=== PATIENT | female | born 1990 | race Caucasian/White ===

== ENCOUNTER 2018-02-19 14:31 | Outpatient (CLI) | payer MEDICAID, SELFPAY ==
[2018-02-19 15:06] LABS: Abs Immature Grans 0.03 k/cumm (0.0-0.09); Absolute Basophil Count 0.03 k/cumm (0.0-0.2); Absolute Eosinophil Count 0.16 k/cumm (0.0-0.7); Absolute Lymphocyte Count 2.19 k/cumm (1.2-3.4); Absolute Monocyte Count 0.82 k/cumm (0.11-0.7); Absolute Neutrophil Count 6.24 k/cumm (1.2-6.7); Basophils % 0.3; Eosinophils % 1.7; HCT 35.6 % (36.0-46.0); HGB 12.2 g/dL (12.0-15.5); Immature Grans % 0.3; Lymphocytes % 23.1; Mean Corp. HGB Concentration 34.3 g/dL (32.0-36.0); Mean Corpuscular Volume 87.7 fL (80-95); Mean Platelet Volume 10.4 fL (8.0-11.0); Monocytes % 8.7; Neutrophils % 65.9; Platelet Count 345 x1000/uL (130-400); RBC 4.06 m/cumm (4.00-5.20); RBC Distribution Width 13.2 % (11.7-14.6); White Blood Cell Count 9.47 k/cumm (4.4-10.8)
[2018-02-19 16:28] LABS: FREE T4 1.11 ng/dL (0.76-1.46)
[2018-02-20 10:50] LABS: HIV-1/2 Ag & Ab Screen Negative (NEGAT)
[2018-02-20 10:54] LABS: Varicella IgG Antibody Negative
[2018-02-20 11:05] LABS: Hepatitis B Surface Ag Negative (NEGAT)
[2018-02-20 11:14] LABS: Hepatitis C Ab w Rflx HCV PCR Negative (NEGAT); Rubella IgG Ab (UVM) Positive
== END 2018-02-19 14:51 ==
PROVIDERS: PCP Pediatrics; Visit Provider Advanced Practice Midwife
DX: Z34.91 Encounter for supervision of normal pregnancy, unspecified, first trimester (principal); Z11.59 Encounter for screening for other viral diseases; Z11.4 Encounter for screening for human immunodeficiency virus [HIV]; Z01.84 Encounter for antibody response examination
CPT/HCPCS: 36415; 86787; 86803; 86850; 86900; 86901; 87340; 87389; 84439; 84443; 85025; 86762

== ENCOUNTER 2018-02-19 16:38 | Outpatient (REF) | payer MEDICAID, SELFPAY ==
[2018-02-19 17:27] LABS: *AMPHETAMINES SCREEN URINE Negative (Negative); *BARBITURATES SCREEN URINE Negative (Negative); *BENZODIAZEPINES SCREEN URINE Negative (Negative); Cannabinoids THC Negative (Negative); Cocaine Screen,Urine Negative (Negative); METHADONE URINE SCREEN Negative (Negative); OPIATES URINE SCREEN Negative (Negative)
[2018-02-19 17:41] LABS: Tricyclic Antidepressants Negative (Negative)
[2018-02-19 18:13] LABS: Bilirubin Negative (Negative); Blood Negative (Negative); Clarity Cloudy; Glucose Negative (Negative); Ketones Negative (Negative); Leukocyte Esterase Negative (Negative); Nitrite Negative (Negative); Specific Gravity 1.025 (1.005-1.025); Urobilinogen 0.2 EU/dL (Up TO 0.2); pH 7.5 (5-8)
[2018-02-23 18:33] LABS: Buprenorphine Negative; Norbuprenorphine Negative
== END 2018-02-19 16:58 ==
LOC: LBN 16:38
PROVIDERS: PCP Pediatrics; Visit Provider Advanced Practice Midwife
DX: Z34.91 Encounter for supervision of normal pregnancy, unspecified, first trimester (principal)
CPT/HCPCS: 80307; 81003; 87086

== ENCOUNTER 2018-02-23 00:15 | Outpatient (CLI) | payer MEDICAID, SELFPAY ==
--- NOTE | 2018-02-23 09:44 | DI.US_ITS ---
Many abnormalities cannot be diagnosed. A normal exam does not exclude a congenital anomaly. Radiology No. LMP: 11/28/17 Exam Date: 02/23/18 [facility] wks days on EDC ([facility]) 09/04/2018 Confirmed: HISTORY: ? DATES, Z32.01 ---- PREDICTED GESTATIONAL AGE NUMBER 12.3 weeks with a range of 11.3 week to 13.3 weeks. 1 Determined by___1STUS___LMP___HISTORY Info. pertaining to fetus # PLACENTA PRESENTATION Grade 0 Cephalic___ Anterior___Posterior__X_ Breech____ Right Left Transverse(head right___ Fundal___Low-lying___Previa___ Transverse(head left___ Varying__X____ BIOMETRY AMNIOTIC FLUID BPD: mm weeks Normal HC: mm weeks Oligo Polyhydramnios AC: mm weeks FL: mm weeks AMNIOTIC FLUID INDEX >26 WK CRL: 46 mm 11.3 weeks Cisterna Magna: mm CI: RUQ: LUQ Cerebellum: cm EFW: grams Percentile RLQ: LLQ Total: cms Composite AGE= 11.3 wks EDC by US____09/11/18 BIOPHYSICAL PROFILE ANATOMY IDENTIFIED SCORE 0/2 Heart: 4-Chamber___Rate:BPM__157___ LVOT: RVOT: Amniotic Fluid(>2cms)____ Stomach: Kidneys: Respirations (>30 secs) Bladder: Post. Fossa: Body Flex/Extension 3 vessel cord: Ventricles: cord insertion: Lips:____ Extremity Flex/Extension spinal morphology: Nose: Total Score= Palate: NS=not seen OB ultrasound was performed utilizing first trimester protocol. Transabdominal scanning only was performed at the patient's request. There is a single, viable intrauterine gestation with crown rump length measurements consistent with gestational age of 11 weeks 3 days and an EDC of 09/11/18. There is cardiac rate observed of 157 BPM. No gross abnormality of the trophoblastic tissue seen.
== END 2018-02-23 00:35 ==
PROVIDERS: PCP Pediatrics; Visit Provider Advanced Practice Midwife
DX: Z34.91 Encounter for supervision of normal pregnancy, unspecified, first trimester (principal)
CPT/HCPCS: 76801

== ENCOUNTER 2018-03-23 09:53 | Outpatient (CLI) | payer MEDICAID, SELFPAY ==
[2018-03-26 12:37] LABS: Syphilis Serology (RPR) Negative (Negative)
[2018-03-26 12:46] LABS: AFP 23.3 ng/mL; Calculated age at EDD 26 years; Cigarette smoking status non-smoker; INHIBIN 450 pg/mL; IVF Pregnancy No; Initial or repeat testing Initial testing; Insulin dependent diabetes No; Maternal Weight 150 lbs; Number of Fetuses 1; Physician Phone Number 802-748-7300; Prev Down(T21)/Trisomy Pregnan No; Prev Pregnancy w/NTD No; hCG, TOTAL 110.4 IU/mL; uE3 0.82 ng/mL
[2018-03-26 13:56] LABS: Chlamydia Result Negative; GC Result Negative; Specimen Description URINE
[2018-03-28 12:37] LABS: Result Summary NEGATIVE; Specimen WB Whole Blood
[2018-04-02 11:04] LABS: uE3 MoM 1.23 MoM
[2018-04-02 11:05] LABS: hCG, TOTAL MoM 2.91 MoM
[2018-04-02 11:10] LABS: GA used in risk estimate Scan estimate
== END 2018-03-23 10:13 ==
PROVIDERS: PCP Pediatrics; Visit Provider Advanced Practice Midwife
DX: Z34.92 Encounter for supervision of normal pregnancy, unspecified, second trimester (principal); Z13.228 Encounter for screening for other metabolic disorders; Z36.89 Encounter for other specified antenatal screening; Z11.3 Encounter for screening for infections with a predominantly sexual mode of transmission
CPT/HCPCS: 36415; 81511; 87491; 87591; 81220; 86592

== ENCOUNTER 2018-04-05 10:45 | Outpatient (CLI) | payer MEDICAID, SELFPAY ==
[2018-04-05 11:18] LABS: Kit/Specimen SENT
== END 2018-04-05 11:05 ==
PROVIDERS: PCP Pediatrics; Visit Provider Advanced Practice Midwife
DX: O28.5 Abnormal chromosomal and genetic finding on antenatal screening of mother (principal); Z36.89 Encounter for other specified antenatal screening
CPT/HCPCS: 36415

== ENCOUNTER 2018-04-13 00:14 | Outpatient (CLI) | payer MEDICAID, SELFPAY ==
--- NOTE | 2018-04-13 14:15 | DI.US_ITS ---
Many abnormalities cannot be diagnosed. A normal exam does not exclude a congenital anomaly. Radiology No. LMP: Exam Date: 04/13/18 [facility] wks days on EDC ([facility]) 09/04/18 Confirmed: HISTORY: SURVEY, Z32.01 PREDICTED GESTATIONAL AGE NUMBER 19.3 weeks with a range of 18.3 week to 20.3 weeks. 1 Determined by___1STUS__X_LMP___HISTORY Info. pertaining to fetus # PLACENTA PRESENTATION Grade 0-1 Cephalic___ Anterior___Posterior__X_ Breech____ Right Left Transverse(head right___ Fundal___Low-lying___Previa___ Transverse(head left___ Varying____X__ BIOMETRY AMNIOTIC FLUID BPD: 41 mm 18.2 weeks Normal HC: 161 mm 18.6 weeks AC: 138 mm 19.1 weeks FL: 28 mm 18.4 weeks AMNIOTIC FLUID INDEX >26 WK CRL: mm weeks Cisterna Magna: 3.9 mm CI: 76 RUQ: LUQ Cerebellum: 1.82 cm EFW: 262 grams Percentile RLQ: LLQ Total: cms Composite AGE= 18.5 wks EDC by US___09/09/18 BIOPHYSICAL PROFILE ANATOMY IDENTIFIED SCORE 0/2 Heart: 4-Chamber_X__Rate:BPM___144__ LVOT: X___ RVOT:___X Amniotic Fluid(>2cms)____ Stomach: X__ Kidneys:___X____ Respirations (>30 secs) Bladder: X__ Post. Fossa:__X Body Flex/Extension 3 vessel cord:___X____Ventricles:___X cord insertion: X Lips:__X__ Extremity Flex/Extension spinal morphology: X_Nose:X Total Score= Palate: X__ NS=not seen Routine examination was performed. There is a single living intrauterine gestation. Estimated sonographic age is 18 weeks 5 days. No or placental abnormalities are identified.
== END 2018-04-13 00:34 ==
PROVIDERS: PCP Pediatrics; Visit Provider Advanced Practice Midwife
DX: Z34.92 Encounter for supervision of normal pregnancy, unspecified, second trimester (principal)
CPT/HCPCS: 76805

== ENCOUNTER 2018-06-15 01:37 | Outpatient (CLI) | payer MEDICAID, SELFPAY ==
[2018-06-15 10:02] LABS: HCT 33.8 % (36.0-46.0); Mean Corp. HGB Concentration 32.5 g/dL (32.0-36.0); Mean Corpuscular Hemoglobin 29.7 pg (27.0-33.0); Mean Corpuscular Volume 91.4 fL (80-95); Platelet Count 302 x1000/uL (130-400); RBC Distribution Width 14.1 % (11.7-14.6); White Blood Cell Count 11.75 k/cumm (4.4-10.8)
[2018-06-15 10:21] LABS: Glucose,1 Hr (Glucola) 138 mg/dL (80-140)
== END 2018-06-15 01:57 ==
PROVIDERS: Visit Provider Advanced Practice Midwife
DX: Z34.93 Encounter for supervision of normal pregnancy, unspecified, third trimester (principal); Z01.84 Encounter for antibody response examination
CPT/HCPCS: 36415; 82950; 85027; 86850; 90384

== ENCOUNTER 2018-06-22 07:42 | Outpatient (CLI) | payer MEDICAID, SELFPAY ==
[2018-06-22 10:59] LABS: Glucose 1 Hour 142 mg/dL
[2018-06-22 13:22] LABS: Glucose 3 Hour 113 mg/dL
== END 2018-06-22 08:02 ==
PROVIDERS: Visit Provider Advanced Practice Midwife
DX: O99.810 Abnormal glucose complicating pregnancy (principal); Z34.90 Encounter for supervision of normal pregnancy, unspecified, unspecified trimester
CPT/HCPCS: 36410; 82951

== ENCOUNTER 2018-08-10 13:51 | Outpatient (REF) | payer MEDICAID, SELFPAY ==
[2018-08-10 13:23] LABS: *AMPHETAMINES SCREEN URINE Negative (Negative); *BARBITURATES SCREEN URINE Negative (Negative); *BENZODIAZEPINES SCREEN URINE Negative (Negative); Cannabinoids THC Negative (Negative); Cocaine Screen,Urine Negative (Negative); METHADONE URINE SCREEN Negative (Negative); OPIATES URINE SCREEN Negative (Negative)
[2018-08-10 13:31] LABS: Tricyclic Antidepressants Negative (Negative)
== END 2018-08-10 14:11 ==
LOC: LBN 13:51
PROVIDERS: Visit Provider Advanced Practice Midwife
DX: Z34.93 Encounter for supervision of normal pregnancy, unspecified, third trimester (principal)
CPT/HCPCS: 80307

== ENCOUNTER 2018-08-17 13:39 | Outpatient (REF) | payer MEDICAID, SELFPAY | END 2018-08-17 13:59 | LOC: LBN 13:39 | PROVIDERS: Visit Provider Advanced Practice Midwife | DX: Z34.93 Encounter for supervision of normal pregnancy, unspecified, third trimester (principal); Z36.85 Encounter for antenatal screening for Streptococcus B | CPT/HCPCS: 87081 ==

== ENCOUNTER 2018-08-24 12:37 | Outpatient (REF) | payer MEDICAID, SELFPAY ==
[2018-08-24 14:23] LABS: *AMPHETAMINES SCREEN URINE Negative (Negative); *BARBITURATES SCREEN URINE Negative (Negative); *BENZODIAZEPINES SCREEN URINE Negative (Negative); Cannabinoids THC Negative (Negative); Cocaine Screen,Urine Negative (Negative); METHADONE URINE SCREEN Negative (Negative); OPIATES URINE SCREEN Negative (Negative)
[2018-08-24 14:29] LABS: Tricyclic Antidepressants Negative (Negative)
[2018-08-27 03:41] LABS: Buprenorphine Negative; Norbuprenorphine Negative
== END 2018-08-24 12:57 ==
LOC: LBN 12:37
PROVIDERS: Visit Provider Advanced Practice Midwife
DX: Z34.93 Encounter for supervision of normal pregnancy, unspecified, third trimester (principal)
CPT/HCPCS: 80307

== ENCOUNTER 2018-09-11 10:25 | Outpatient (CLI) | payer MEDICAID, SELFPAY | END 2018-09-11 10:45 | PROVIDERS: Visit Provider Advanced Practice Midwife | DX: O48.0 Post-term pregnancy (principal); Z3A.41 41 weeks gestation of pregnancy | CPT/HCPCS: 59025 ==

== ENCOUNTER 2018-09-12 21:04 | Inpatient (IN) | payer MEDICAID, SELFPAY ==
[2018-09-12 23:02] LABS: HCT 39.6 % (36.0-46.0); Mean Corp. HGB Concentration 32.8 g/dL (32.0-36.0); Mean Corpuscular Hemoglobin 28.9 pg (27.0-33.0); Platelet Count 322 x1000/uL (130-400); RBC Distribution Width 16.1 % (11.7-14.6); White Blood Cell Count 13.71 k/cumm (4.4-10.8)
[2018-09-12 23:14] LABS: Uric Acid 3.8 mg/dL (2.6-6.0)
[2018-09-12 23:16] LABS: ALT 17 U/L (12-78); AST 14 U/L (15-37); Albumin 2.7 g/dL (3.4-5.0); Alkaline Phosphatase 216 U/L (46-116); BUN 5 mg/dL (7-18); Bilirubin, Total 0.3 mg/dL (0.2-1.0); CREATININE 0.66 mg/dL (0.55-1.02); Calcium 9.8 mg/dL (8.5-10.1); Chloride 103 mmol/L (98-107); Glucose 125 mg/dL (70-100); Potassium 3.7 mmol/L (3.5-5.1); Sodium 136 mmol/L (136-145); Total Protein 7.1 g/dL (6.4-8.2)
[2018-09-13] MEDS: Zolpidem 5 MG TAB PO (01:06)
[2018-09-13] MEDS: Lactated Ringers 500 ML IV (14:22)
[2018-09-13] MEDS: FentaNYL/ROPIvacaine 2 mcg/ml and 0.1% 200 ML CADD Cassette EP (15:00)
[2018-09-13] MEDS: Bupivacaine 0.25% Pres-Free 30 ML VIAL (15:00)
[2018-09-13] MEDS: fentaNYL 100 MCG/2 ML VIAL (15:00)
[2018-09-13] MEDS: Lactated Ringers 250 ML 500 ML IV (15:37)
--- NOTE | 2018-09-13 20:49 | PDOC.ANES ---
Date of service: 09/13/18 Time of Service: 20:50 Anesthesia Note Report Anesthesia Note: Requested to see Gila as she had an epidural placed earlier this afternoon and has been experiencing some discomfort on her right side now despite trying to lie with her right side down as well as left side more dense sensory block. No observed motor weakness on exam. Decision made to withdraw epidural catheter. Site undressed and catheter at skin was 12cm, catheter withdrew in sterile fashion to 10cm, mastisol applied as well as new dressing which was secured with tape. A total of 10ml 0.1% ropivacaine administered with some relief. PCEA dose also increased to 5ml. Plan is to maintain epidural at current rate with no option to withdraw catheter given short distance into space. If needed she will supplement with nitrous. The epidural seems to be providing moderate pain relief despite favoring one side.
[2018-09-14] MEDS: Lactated Ringers 1,000 ML 125 ML IV (02:38)
[2018-09-14] MEDS: Ibuprofen 600 MG TAB PO ×3 (05:08→15:55)
[2018-09-14] MEDS: Acetaminophen 325 MG TAB 650 MG PO ×5 (05:09→19:45)
[2018-09-14] MEDS: Hamamelis Leaf/Glycerin 100 EACH BOX PR (06:09)
[2018-09-15 07:07] LABS: HCT 31.7 % (36.0-46.0); HGB 9.9 g/dL (12.0-15.5); Mean Corp. HGB Concentration 31.2 g/dL (32.0-36.0); Mean Corpuscular Hemoglobin 28.4 pg (27.0-33.0); Mean Corpuscular Volume 91.1 fL (80-95); Mean Platelet Volume 10.8 fL (8.0-11.0); Platelet Count 294 x1000/uL (130-400); RBC 3.48 m/cumm (4.00-5.20); RBC Distribution Width 16.3 % (11.7-14.6); White Blood Cell Count 14.05 k/cumm (4.4-10.8)
[2018-09-15] MEDS: Acetaminophen 325 MG TAB 650 MG PO ×2 (10:50→17:33)
[2018-09-15] MEDS: Ibuprofen 600 MG TAB PO ×2 (14:09→20:11)
[2018-09-16] MEDS: Acetaminophen 325 MG TAB 650 MG PO ×2 (08:17→14:03)
[2018-09-16] MEDS: Ibuprofen 600 MG TAB PO ×2 (08:21→14:03)
[2018-09-16] MEDS: Docusate Sodium 100 MG CAP PO (08:22)
== END 2018-09-16 16:30 | disposition home or self-care (01) | DRG 807 ==
PROVIDERS: Advanced Practice Midwife; Admitting Provider Advanced Practice Midwife; PCP Family Medicine; Visit Provider Advanced Practice Midwife
DX: O42.02 Full-term premature rupture of membranes, onset of labor within 24 hours of rupture (principal); Z37.0 Single live birth; O48.0 Post-term pregnancy; O70.1 Second degree perineal laceration during delivery; O63.0 Prolonged first stage (of labor); Z3A.41 41 weeks gestation of pregnancy; O75.89 Other specified complications of labor and delivery; N36.5 Urethral false passage
CPT/HCPCS: 36415; 80053; 85027; 85461; 86850; 86900; 86901; 90384; 84550; J2790; J3010; J3490

== ENCOUNTER 2019-03-29 11:45 | Outpatient (CLI) | payer MEDICAID, SELFPAY | END 2019-03-29 12:05 | PROVIDERS: PCP Family Medicine; Visit Provider Nurse Practitioner Family | DX: Z32.01 Encounter for pregnancy test, result positive (principal) | CPT/HCPCS: 36415; 84702 ==

== ENCOUNTER 2019-04-26 21:16 | Outpatient (REF) | payer MEDICAID, SELFPAY ==
[2019-04-26 15:35] LABS: *AMPHETAMINES SCREEN URINE Negative (Negative); *BARBITURATES SCREEN URINE Negative (Negative); *BENZODIAZEPINES SCREEN URINE Negative (Negative); Cannabinoids THC Negative (Negative); Cocaine Screen,Urine Negative (Negative); METHADONE URINE SCREEN Negative (Negative); OPIATES URINE SCREEN Negative (Negative)
[2019-04-26 15:46] LABS: Tricyclic Antidepressants Negative (Negative)
[2019-04-29 14:37] LABS: Chlamydia Result Negative (Negative); GC Result Negative (Negative)
[2019-05-01 12:50] LABS: Buprenorphine Negative; Norbuprenorphine Negative
== END 2019-04-26 21:36 ==
LOC: LBN 21:16
PROVIDERS: PCP Family Medicine; Visit Provider Advanced Practice Midwife
DX: Z34.91 Encounter for supervision of normal pregnancy, unspecified, first trimester (principal); Z11.3 Encounter for screening for infections with a predominantly sexual mode of transmission
CPT/HCPCS: 80307; 87491; 87591

== ENCOUNTER 2019-05-06 01:55 | Outpatient (CLI) | payer MEDICAID, SELFPAY ==
[2019-05-06 09:49] LABS: Glucose,1 Hr (Glucola) 127 mg/dL (80-140)
[2019-05-06 10:30] LABS: Abs Immature Grans 0.01 k/cumm (0.0-0.09); Absolute Basophil Count 0.02 k/cumm (0.0-0.2); Absolute Eosinophil Count 0.09 k/cumm (0.0-0.7); Absolute Lymphocyte Count 1.65 k/cumm (1.2-3.4); Absolute Monocyte Count 0.47 k/cumm (0.11-0.7); Absolute Neutrophil Count 6.16 k/cumm (1.2-6.7); Basophils % 0.2; Eosinophils % 1.1; HCT 38.9 % (36.0-46.0); HGB 13.3 g/dL (12.0-15.5); Immature Grans % 0.1 %; Lymphocytes % 19.6; Mean Corp. HGB Concentration 34.2 g/dL (32.0-36.0); Mean Corpuscular Volume 87.6 fL (80-95); Mean Platelet Volume 10.6 fL (8.0-11.0); Monocytes % 5.6; Neutrophils % 73.4; Platelet Count 362 x1000/uL (130-400); RBC 4.44 m/cumm (4.00-5.20); RBC Distribution Width 13.2 % (11.7-14.6)
[2019-05-06 11:28] LABS: TSH (W/Ref FT4) 0.02 uIU/mL (0.36-3.74)
[2019-05-06 14:31] LABS: FREE T4 1.09 ng/dL (0.76-1.46)
[2019-05-07 10:24] LABS: Hepatitis B Surface Ag Negative (Negative)
[2019-05-07 10:39] LABS: HIV-1/2 Ag & Ab Screen Negative (Negative)
[2019-05-07 10:49] LABS: Rubella IgG Ab (UVM) Positive (See Note); Varicella IgG Antibody Negative (See Note)
[2019-05-07 11:49] LABS: Hepatitis C Ab w Rflx HCV PCR Negative (Negative)
[2019-05-07 15:27] LABS: Syphilis Total Ab w/Reflex Nonreactive (Nonreactive)
== END 2019-05-06 02:15 ==
PROVIDERS: Advanced Practice Midwife; PCP Family Medicine; Visit Provider Advanced Practice Midwife
DX: Z34.91 Encounter for supervision of normal pregnancy, unspecified, first trimester (principal); Z11.4 Encounter for screening for human immunodeficiency virus [HIV]; Z11.59 Encounter for screening for other viral diseases; Z01.84 Encounter for antibody response examination
CPT/HCPCS: 36415; 82950; 86787; 86803; 86850; 86900; 86901; 87340; 87389; 84439; 84443; 85025; 86762; 86780

== ENCOUNTER 2019-05-15 15:50 | Outpatient (CLI) | payer MEDICAID, SELFPAY ==
[2019-05-15 16:59] LABS: FREE T4 1.12 ng/dL (0.76-1.46); TSH 0.02 uIU/mL (0.36-3.74)
[2019-05-17 10:07] LABS: Thyroperoxidase Antibody 32 U/mL (<=60)
== END 2019-05-15 16:10 ==
PROVIDERS: Advanced Practice Midwife; PCP Nurse Practitioner; Visit Provider Advanced Practice Midwife
DX: Z34.92 Encounter for supervision of normal pregnancy, unspecified, second trimester (principal)
CPT/HCPCS: 36415; 84439; 84443; 86376

== ENCOUNTER 2019-05-31 02:53 | Outpatient (CLI) | payer MEDICAID, SELFPAY ==
--- NOTE | 2019-05-31 10:15 | DI.US_ITS ---
EXAM: US OB 1ST TRIMESTER CLINICAL HISTORY: dating ultrasound. pt declines t/v usg, Z34.90 TECHNIQUE: Ultrasound performed using standard protocol. COMPARISON: No exams were available for comparison FINDINGS: The fetus was in variable position during the exam. The edge of the placenta approaches the interna l os. It does not appear to extend across the os. The biometric measurements correspond to 16 weeks 5 days and an EDC of 10 November 2019. The amount of amniotic fluid appears visually normal. No rizwana s abnormalities were identified. IMPRESSION: Living intrauterine gestation of 16 weeks 5 days. The patient is scheduled to return 14 June 2019 f or a complete survey. Question of marginal placenta previa. DATA REPOSITORY:
== END 2019-05-31 03:13 ==
PROVIDERS: PCP Nurse Practitioner; Visit Provider Advanced Practice Midwife
DX: Z34.92 Encounter for supervision of normal pregnancy, unspecified, second trimester (principal); Z3A.16 16 weeks gestation of pregnancy
CPT/HCPCS: 76801

== ENCOUNTER 2019-05-31 12:58 | Outpatient (CLI) | payer MEDICAID, SELFPAY | END 2019-05-31 13:18 | PROVIDERS: PCP Nurse Practitioner; Visit Provider Advanced Practice Midwife | DX: Z34.92 Encounter for supervision of normal pregnancy, unspecified, second trimester (principal) | CPT/HCPCS: 87086 ==

== ENCOUNTER 2019-06-28 00:20 | Outpatient (CLI) | payer MEDICAID, SELFPAY ==
--- NOTE | 2019-06-28 06:15 | DI.US_ITS ---
EXAM: US OB 2-3 TRIMESTER CLINICAL HISTORY: 18 wk anatomy survey,z34.90 TECHNIQUE: 2D digital imaging was performed. COMPARISON: US OB 1ST TRIMESTER from 05/31/2019 FINDINGS: The fetus was in variable position during the exam. The placenta is posterior. The tip of the place nta lies 2.5 cm from the internal os.. The biometric measurements correspond to 20 weeks 3 days and an EDC of 12 November 2019. No abno rmalities are seen. The amount of amniotic fluid appears visually normal. IMPRESSION: Borderline low-lying placenta. Unremarkable survey.
== END 2019-06-28 00:40 ==
PROVIDERS: PCP Nurse Practitioner; Visit Provider Advanced Practice Midwife
DX: Z34.92 Encounter for supervision of normal pregnancy, unspecified, second trimester (principal); Z3A.20 20 weeks gestation of pregnancy
CPT/HCPCS: 76805

== ENCOUNTER 2019-08-16 09:22 | Outpatient (REF) | payer MEDICAID, SELFPAY ==
[2019-08-16 09:39] LABS: HGB 12.7 g/dL (12.0-15.5); Mean Corp. HGB Concentration 33.4 g/dL (32.0-36.0); Mean Corpuscular Hemoglobin 30.6 pg (27.0-33.0); Mean Corpuscular Volume 91.6 fL (80-95); Mean Platelet Volume 10.6 fL (8.0-11.0); Platelet Count 323 x1000/uL (130-400); RBC 4.15 m/cumm (4.00-5.20); RBC Distribution Width 14.4 % (11.7-14.6)
[2019-08-16 09:42] LABS: Glucose,1 Hr (Glucola) 141 mg/dL (80-140)
[2019-08-16 10:17] LABS: TSH (W/Ref FT4) 0.37 uIU/mL (0.36-3.74)
== END 2019-08-16 09:42 ==
LOC: LBN 09:22
PROVIDERS: PCP Family Medicine; Visit Provider Advanced Practice Midwife
DX: O26.892 Other specified pregnancy related conditions, second trimester (principal); E03.9 Hypothyroidism, unspecified
CPT/HCPCS: 82950; 85027; 86850; 90384; 84443

== ENCOUNTER 2019-08-22 10:15 | Outpatient (CLI) | payer MEDICAID, SELFPAY ==
[2019-08-22 10:44] LABS: Glucose 1 Hour 151 mg/dL
== END 2019-08-22 10:35 ==
PROVIDERS: Visit Provider Advanced Practice Midwife
DX: Z34.93 Encounter for supervision of normal pregnancy, unspecified, third trimester (principal)
CPT/HCPCS: 82951

== ENCOUNTER 2019-10-14 12:48 | Outpatient (REF) | payer MEDICAID, SELFPAY ==
[2019-10-14 14:10] LABS: *AMPHETAMINES SCREEN URINE Negative (Negative); *BARBITURATES SCREEN URINE Negative (Negative); *BENZODIAZEPINES SCREEN URINE Negative (Negative); Cannabinoids THC Negative (Negative); Cocaine Screen,Urine Negative (Negative); METHADONE URINE SCREEN Negative (Negative); OPIATES URINE SCREEN Negative (Negative)
[2019-10-14 14:14] LABS: Tricyclic Antidepressants Negative (Negative)
[2019-10-19 18:12] LABS: Buprenorphine Negative; Norbuprenorphine Negative
== END 2019-10-14 13:08 ==
LOC: LBN 12:48
PROVIDERS: Visit Provider Advanced Practice Midwife
DX: Z34.90 Encounter for supervision of normal pregnancy, unspecified, unspecified trimester (principal)
CPT/HCPCS: 80307; 87081

== ENCOUNTER 2019-11-05 10:02 | Inpatient (IN) | payer MEDICAID, SELFPAY ==
[2019-11-05 10:50] LABS: HCT 41.1 % (36.0-46.0); HGB 13.4 g/dL (11.2-15.7); MCHC 32.6 % (32.0-36.0); MCV 92.2 fL (80-95); Platelet Count 245 10^3/uL (130-400); RBC 4.46 10^6/uL (3.93-5.22); RDW 14.7 % (11.7-14.6); RDW-SD 49.4 fL; WBC 9.93 10^3/uL (4.4-10.8)
[2019-11-05] MEDS: miSOPROStol 25 MCG TAB 50 MCG PO ×4 (10:56→23:00)
[2019-11-06] MEDS: Zolpidem 10 MG TAB PO (00:55)
[2019-11-06] MEDS: Docusate Sodium 100 MG CAP PO (00:56)
[2019-11-06 01:29] LABS: COVID-19 RT-PCR UVMMC Result Negative (Negative)
[2019-11-06] MEDS: Lactated Ringers 1,000 ML 125 ML IV (09:05)
[2019-11-06] MEDS: Oxytocin/Normal Saline 30 UNITS/500 ML BAG IV (09:06)
[2019-11-07] MEDS: FentaNYL/ROPIvacaine 2 mcg/ml and 0.1% 200 ML CADD Cassette EP (01:15)
[2019-11-07] MEDS: Hamamelis Leaf/Glycerin 100 EACH BOX PR (05:30)
[2019-11-07] MEDS: Ibuprofen 600 MG TAB PO ×3 (06:12→20:02)
[2019-11-07] MEDS: Acetaminophen 325 MG TAB 650 MG PO ×4 (06:12→20:01)
[2019-11-07 08:58] LABS: HCT 35.9 % (36.0-46.0); HGB 12.1 g/dL (11.2-15.7); MCH 30.3 pg (27.0-33.0); MCHC 33.7 % (32.0-36.0); MPV 11.1 fL (8.0-11.0); Platelet Count 256 10^3/uL (130-400); RBC 3.99 10^6/uL (3.93-5.22); RDW 14.7 % (11.7-14.6); RDW-SD 48.5 fL; WBC 18.44 10^3/uL (4.4-10.8)
[2019-11-07] MEDS: Docusate Sodium 100 MG CAP PO (20:02)
[2019-11-08] MEDS: Acetaminophen 325 MG TAB 650 MG PO (07:52)
[2019-11-08] MEDS: Docusate Sodium 100 MG CAP PO (07:53)
[2019-11-08] MEDS: Ibuprofen 600 MG TAB PO (07:53)
== END 2019-11-08 13:30 | disposition home or self-care (01) | DRG 807 ==
PROVIDERS: Advanced Practice Midwife; Admitting Provider Advanced Practice Midwife; Visit Provider Advanced Practice Midwife
DX: O32.0XX0 Maternal care for unstable lie, not applicable or unspecified (principal); Z37.0 Single live birth; Z3A.39 39 weeks gestation of pregnancy; O76 Abnormality in fetal heart rate and rhythm complicating labor and delivery; O75.81 Maternal exhaustion complicating labor and delivery; O69.1XX0 Labor and delivery complicated by cord around neck, with compression, not applicable or unspecified; O70.0 First degree perineal laceration during delivery; Z67.41 Type O blood, Rh negative; Z29.13 Encounter for prophylactic Rho(D) immune globulin; O99.284 Endocrine, nutritional and metabolic diseases complicating childbirth; E03.9 Hypothyroidism, unspecified; Z78.9 Other specified health status
CPT/HCPCS: 36415; 85027; 85461; 86850; 86900; 86901; 90384; U0003; 86870; J2790; J3490

== ENCOUNTER 2020-06-22 04:33 | Outpatient (CLI) | payer MEDICAID, SELFPAY ==
[2020-06-22 14:11] LABS: ALT 37 U/L (14-59); AST 20 U/L (15-37); Albumin 4.1 g/dL (3.4-5.0); Alkaline Phosphatase 74 U/L (46-116); Anion Gap 11.4 mmol/L (3-11); BUN 6 mg/dL (7-18); Bilirubin, Total 0.6 mg/dL (0.2-1.0); CO2 24.6 mmol/L (21.0-32.0); CREATININE 0.7 mg/dL (0.55-1.02); Calcium 9.3 mg/dL (8.5-10.1); Calculated LDL 92 mg/dL (<100); Chloride 102 mmol/L (98-107); Cholesterol 152 mg/dL (<200); Glucose 78 mg/dL (74-106); HDL Cholesterol 47 mg/dL (40-60); Potassium 3.8 mmol/L (3.5-5.1); Sodium 138 mmol/L (136-145); TSH 0.16 uIU/mL (0.36-3.74); Total Protein 7.8 g/dL (6.4-8.2); Triglyceride 65 mg/dL (<150)
[2020-06-22 14:22] LABS: Vitamin D 25 Total 31.5 ng/mL (30-100)
[2020-06-22 14:28] LABS: Bilirubin, Direct 0.2 mg/dL (0.0-0.2); FREE T4 1.23 ng/dL (0.76-1.46)
[2020-06-22 22:04] LABS: T3,Free 4.2 pg/mL (2.8-5.3)
[2020-06-22 22:46] LABS: Thyroglobulin Antibody 21 U/mL (<=60)
[2020-06-22 22:49] LABS: Thyroperoxidase Antibody <28 U/mL (<=60)
[2020-06-24 08:59] LABS: Homocysteine 7.7 umol/L (5.0-13.9)
[2020-06-24 10:26] LABS: Lipoprotein (a) 15 mg/dL (<=30)
== END 2020-06-22 04:34 | disposition home or self-care (01) ==
LOC: LBO 04:33
PROVIDERS: PCP Nurse Practitioner; Visit Provider Naturopath
DX: R94.6 Abnormal results of thyroid function studies (principal); Z13.220 Encounter for screening for lipoid disorders; Z13.1 Encounter for screening for diabetes mellitus; M62.830 Muscle spasm of back; E55.9 Vitamin D deficiency, unspecified
CPT/HCPCS: 36415; 80053; 80061; 80076; 82306; 83090; 83695; 83036; 83735; 84439; 84443; 84481; 86376; 86800

== ENCOUNTER 2020-07-13 03:31 | Outpatient (CLI) | payer MEDICAID, SELFPAY ==
[2020-07-13 16:34] LABS: Abs Immature Grans 0.03 10^3/uL (0.0-0.06); Absolute Basophil Count 0.05 10^3/uL (0.0-0.2); Absolute Eosinophil Count 0.12 10^3/uL (0.0-0.7); Absolute Lymphocyte Count 2.24 10^3/uL (1.2-3.4); Absolute Monocyte Count 0.56 10^3/uL (0.1-0.8); Absolute Neutrophil Count 6.32 10^3/uL (1.2-6.7); Basophils % 0.5; Eosinophils % 1.3; HCT 40.9 % (36.0-46.0); HGB 13.6 g/dL (11.2-15.7); Immature Grans % 0.3; MCH 29.7 pg (27.0-33.0); MCHC 33.3 % (32.0-36.0); MCV 89.3 fL (80-95); MPV 10.7 fL (8.0-11.0); Neutrophils % 67.9; Nucleated RBC 0 %; Platelet Count 341 10^3/uL (130-400); RBC 4.58 10^6/uL (3.93-5.22); RDW 12.8 % (11.7-14.6); WBC 9.32 10^3/uL (4.4-10.8)
[2020-07-13 16:40] LABS: Glucose,1 Hr (Glucola) 81 mg/dL (80-140)
[2020-07-13 17:14] LABS: TSH (W/Ref FT4) 0.12 uIU/mL (0.36-3.74)
[2020-07-13 17:33] LABS: FREE T4 1.02 ng/dL (0.76-1.46)
[2020-07-15 09:08] LABS: Hepatitis B Surface Ag Negative (Negative)
[2020-07-15 09:51] LABS: Hepatitis C Ab w Rflx HCV PCR Negative (Negative)
[2020-07-15 10:10] LABS: HIV-1/2 Ag & Ab Screen Negative (Negative)
[2020-07-15 10:58] LABS: Rubella IgG Ab (UVM) Positive (See Note); Varicella IgG Antibody Negative (See Note)
[2020-07-15 13:03] LABS: Syphilis Total Ab w/Reflex Nonreactive (Nonreactive)
== END 2020-07-13 03:32 | disposition home or self-care (01) ==
LOC: LBO 03:32
PROVIDERS: PCP Nurse Practitioner; Visit Provider Advanced Practice Midwife
DX: Z34.91 Encounter for supervision of normal pregnancy, unspecified, first trimester (principal); Z3A.11 11 weeks gestation of pregnancy; Z11.4 Encounter for screening for human immunodeficiency virus [HIV]; Z11.59 Encounter for screening for other viral diseases; Z01.84 Encounter for antibody response examination
CPT/HCPCS: 36415; 82950; 86787; 86803; 86850; 86900; 86901; 87340; 87389; 84439; 84443; 85025; 86762; 86780

== ENCOUNTER 2020-07-13 16:13 | Outpatient (REF) | payer MEDICAID, SELFPAY ==
[2020-07-13 17:30] LABS: *AMPHETAMINES SCREEN URINE Negative (Negative); *BARBITURATES SCREEN URINE Negative (Negative); *BENZODIAZEPINES SCREEN URINE Negative (Negative); Cannabinoids THC Negative (Negative); Cocaine Screen,Urine Negative (Negative); METHADONE URINE SCREEN Negative (Negative); OPIATES URINE SCREEN Negative (Negative)
[2020-07-13 17:34] LABS: Tricyclic Antidepressants Negative (Negative)
[2020-07-17 09:02] LABS: Buprenorphine Negative ng/mL (Cutoff: 5.0); Norbuprenorphine Negative ng/mL (Cutoff: 2.5)
== END 2020-07-13 16:14 | disposition home or self-care (01) ==
LOC: LBN 16:13
PROVIDERS: PCP Nurse Practitioner; Visit Provider Advanced Practice Midwife
DX: Z34.91 Encounter for supervision of normal pregnancy, unspecified, first trimester (principal)
CPT/HCPCS: 80307; 87086

== ENCOUNTER 2020-07-20 20:30 | Emergency (ER) | payer MEDICAID, SELFPAY ==
[2020-07-20 20:39] VITALS: BP 127/73; PULSE 99; RESP 16; TEMP 36.4; O2SAT 99
--- NOTE | 2020-07-20 21:06 | ED.GENADUL_ITS ---
Discharge Plan Disposition Patient Disposition: HOME Condition: Stable Discharge Details Clinical Impression: Transaminitis, Leukocytosis, Abdominal pain, RUQ Primary Care Provider: Luma Diaz ED Provider: Cathi Feliciano Home Meds and New Rx's Prescriptions: Continued prenat.vits,jil,nbe-yrcc-usywt tablet 1 tab PO DAILY RF: 0 alfalfa 250 mg tablet 650 mg PO DAILY RF: 0 magnesium 250 mg tablet 250 mg PO DAILY PRNRF: 0 cholecalciferol (vitamin D3) 100 mcg (4,000 unit) capsule 1,000 unit PO PRN RF: 0 Senna Plus 8.6-50 mg capsule 1 tab-cap PO .COMPLEX PRNRF: 0 Discharge Instructions Instructions: Leukocytosis (ED), Abdominal Pain (ED) Additional Instructions: Your labs are concerning today for elevated white count elevated liver enzymes. However, your ultrasound on the bedside is reassuring. Plan to treat to have a formal outpatient ultrasound. Please discuss continuing the alfalfa with Dr. Vidal prior to taking more dosing. Please continue with low-fat diet. Please avoid foods that exacerbate your discomfort. Please keep your up coming appointment with general surgery. Please follow-up closely with INFORMATION SYSTEMS SECURITY ANALYST If you develop fever/chills, increased pain, inability stay hydrated or other new/worsening symptoms please seek care urgently once again. Referrals: Luma Diaz, [facility] [Primary Care Provider] - Yana Blake [[facility] NURSE MED PEDS] - Angy Butler [ [facility] STAFF PHYSICIAN] - Discharge Data Discharge Date/Time-TO BE ENTERED AT DEPARTURE: 07/21/20 00:15 Medical Decision Making Patient is a 29-year-old female presents with chief complaint of right upper quadrant pain. Patient has high known cholelithiasis. Patient had ultrasound at [facility] which revealed gallstones and some thickening of the gallbladder. Has not had any subsequent symptoms until today. Patient has scheduled appoint with general surgery at [facility] next Monday. States that today she had a cream-based soup and subsequently developed recurrence of her right upper quadrant pain. States that she vomited x1. Reports the pain is fairly steady since 2:00 this has been subsiding since being here. She denies any vaginal discharge. No bleeding. No cramping. No pain in the lower abdomen. No had any fevers. No hematemesis. No previous abdominal surgeries. On exam, patient appears nontoxic. Lungs are clear, normal cardiac exam. Abdomen is benign patient with some right upper quadrant pain but negative Rodriguez sign no rebound tenderness. Patient I discussed treatment options. At this time, we are unable to obtain an ultrasound. Her pain is subsiding, unlikely to be acute cholecystitis and more likely to be continuation of her chronic gallbladder symptoms. Patient appears nontoxic, nonsurgical abdomen. Will obtain baseline labs as a screening. We will also obtain heart tones. Patient reports that this feels like her pain has similarly. Seems to be more out of anxiety for her baby that brings her in today. Labs reviewed. Patient has concerning white count of 17.9. Also has transaminitis with AST of 153, ALT 137. Concern at this time for acute cholecystitis plus with is, cholangitis. Patient reports that her pain is improved and she is resting comfortably. States that this feels again, like one of her typical gallbladder attacks. Patient does have small amount of bilirubin in her urine. Blood pressure stable at 110/63. Reevaluated the patient's abdomen. She continues to have no right upper quadrant pain, negative Rodriguez sign. Abdomen is nontender and she is asymptomatic at this time. Have consulted with [facility] with your request ultrasound heart tones 162 Dr. Perkins was able to perform a bedside ultrasound. Gallbladder wall thickness 2.5 mm. No pericholecystic fluid. He does appreciate stones or sludge in the gallbladder. Patient has negative Rodriguez sign Contacted by [facility], they are unable to accommodate any patients at their facility secondary to bed capacity. Unable to obtain nighttime ultrasound. Spoke with our general surgeon, Dr. Benoit. Again, patient has been hemodynamically stable and asymptomatic since arrival here. We discussed the labs and patient's presentation. Based on the fact the patient asymptomatic, nontoxic and has normal bedside ultrasound, she does not feel that emergent ultrasound is warranted tonight. Rather, will obtain outpatient ultrasound tomorrow. Patient has schedule appointment with general surgeon. I did encourage close follow-up with INFORMATION SYSTEMS SECURITY ANALYST. She will need repeat lab. Dr. Benoit is questioning if the leukocytosis likely with the vomiting and . Regarding transaminitis, were unclear if this could be associated with patient using alfalfa. I advised her to discuss this further with her physician. I did try to review literature on this and was having difficulty finding if these could be linked. She will call tomorrow and discuss. Patient is now reporting that she had elevated liver enzymes when she last saw her PCP. She has not been elevated here historically. Patient I discussed disposition at length. Patient continues to feel well and has been asymptomatic largely since being here. She feels safe to go home and would like to do so. Plans for her to follow-up for ultrasound tomorrow. Patient will follow up with general surgery tomorrow. She will contact her primary care tomorrow to discuss the transaminitis as well as her continuing on the alfalfa. Encourage close follow-up with INFORMATION SYSTEMS SECURITY ANALYST. Strict return precautions were given, in particular signs of infection and worsening pain. All of her questions and concerns were addressed and she is in agreement this plan. [facility] General Mode of arrival: ambulatory . Date/Time Provider Initiated Documentation: 07/20/20 21:06 . Limitations to Documentation: no limitations . Information obtained by: patient, RN/MD (contacted by Yana Blake prior to arrival), RN notes reviewed and old records reviewed . History of Present Illness 29 year old F presents to the emergency department with the chief complaint of right upper quadrant pain, described as mild, with intensity rated at 3. Quality is described as stabbing, and is localized to the abdomen and right. Patient reports no radiation. Patient started experiencing this hour(s) (1400) and it has been now resolved. No relieving factors improve symptom(s), Eating worsens symptoms . Patient notes fever/chills (reports she always has chills when she has a gallbladder attack), loss of appetite and nausea/vomiting (vomited x 1); denies chest pain, cough, rash and shortness of breath. Patient did receive the following treatments prior to arrival, none Related Data Home Medications Medication Instructions Recorded Confirmed prenat.vits,jil,fjd-diit-rjhzb 1 tab PO DAILY 02/05/18 07/21/20 magnesium 250 mg tablet 250 mg PO DAILY PRN 09/28/18 07/21/20 cholecalciferol (vitamin D3) 100 1,000 unit PO PRN cap 07/26/19 07/21/20 mcg (4,000 unit) capsule sennosides 8.6 mg-docusate sodium 1 tab-cap PO .COMPLEX PRN 10/28/19 07/21/20 50 mg capsule alfalfa 250 mg tablet 650 mg PO DAILY tab 06/22/20 07/21/20 Allergies Allergy/AdvReac Type Severity Reaction Status Date / Time house dust Allergy Mild Unverified 07/21/20 10:17 jaison Allergy Hives Verified 07/21/20 10:17 soap Allergy Blisters Verified 07/21/20 10:17 on hands pollen Allergy Intermediate Uncoded 07/21/20 10:17 General Stated Complaint: Abd Prob YAMILEX: 3 Review of Systems Constitutional Constitutional: Reports as per HPI, Denies chills, Denies fatigue, Denies fever(s) and Denies headache(s) ENT Ears, Nose, Mouth, and Throat: Denies headache(s) Cardiovascular Cardiovascular: Reports as per HPI, Denies chest pain and Denies dyspnea Respiratory Respiratory: Reports as per HPI, Denies cough and Denies dyspnea Gastrointestinal Gastrointestinal: Reports as per HPI Musculoskeletal Musculoskeletal: Reports as per HPI and Denies back pain Integumentary/Breasts Skin/Breast: Reports as per HPI and Denies rash Neurologic Neurologic: Reports as per HPI and Denies headache(s) Endocrine Endocrine: Denies fatigue PFSH Medical History Family history of hypothyroidism Ingrown left big toenail Ingrown nail of great toe of right foot Surgical History [place] teeth removed Family History Mother Thyroid disorder hypothyroid History of hysterectomy for benign disease fibroids Hx laparoscopic cholecystectomy Sister Raynaud's disease Thyroid disorder hypothyroid Maternal Grandmother Hypertension Parkinson's disease Maternal Grandfather Hypertension Myocardial infarction Paternal Grandmother Diabetes Hypertension Breast cancer Paternal Grandfather Hx of cholecystectomy Brother Liver disease Father No problems noted. Sister No problems noted. Sister No problems noted. Brother No problems noted. Brother Hypothyroid Sister No problems noted. Daughter No problems noted. Social History Smoking/Tobacco Use Status: Never Second Hand Exposure: Yes Smoking risk assessment performed?: Yes Alcohol Intake: former Details: social, 1x/mos. w/o use w/ knowledge of . Drug use: Never Substance use type: does not use Adopted: No Caregiver/Support person: No Foster care: No Household members: spouse and children Housing: house Number of Children: 0 Communication Needs: None Do you need help understanding health information?: Never current occupation: nurse [employer]. Pets and animals: Yes Pets and animals: dog(s) Sexually active: Yes Do you think of yourself as: straight/heterosexual Current gender identity: female What is your relationship status?: How often do you talk on the phone with friends or family?: three or more times per week How often do you get together with friends or relatives?: once per week How often do you attend mandaeism or scientologist services?: 4 or more times per year Do you belong to any clubs or organized social groups?: yes Panel score (0-1 are the most socially isolated patients): 4 What type of physical activity do you participate in: other Frequency: daily Sadaf/Holiness: confucianism Special sadaf needs: No Agree to transfusion: Yes Seatbelt use: always Helmet use: Yes (not w/ bicycle, enc. to use at all times.) Helmet use: sometimes Drive intox or ride w/intox local company flatbed truck driver: No Water heater temp set <120 deg: No (unknown, will check.) Working smoke detector in home: Yes Fire extinguisher in home: Yes Carbon monox detector in home: Yes Firearms in home: Yes (yes,) Do you feel safe at home: Yes Do you feel safe in your relationship?: Yes Victim of physical abuse: No Victim of emotional abuse: No Victim of sexual abuse: No Female Reproductive History Menstrual Age of Menarche: 13 Duration of menses: 3-5 days control method: none History History 3 Para 2 Hx # Term Pregnancies 2 Multiple births 0 Hx # Pregnancies 0 Ectopic pregnancies 0 AB induced 0 Hx Number of Living Children 2 AB spontaneous 0 Past Pregnancies Del. Date GA/Weeks # Outcome Route Wgt Sex Labor Lgth Anesthes ia Location [facility] 09/14/18 41 No Successful vaginal 4167.38 g Female ashley Powers CNM 11/07/19 39 No Successful vaginal 3883.885 g Male ashley Powers CNM Delivery Date: 09/14/18 IOL for postdates and PROM, prolonged labor> 20 hrs, pit oct, epidural Yana Blake Delivery Date: 11/07/19 IOL for unstable lie, epidural, had decreased FHT with bright red bleeding right before delivery, tight nuchal cord, first degree Yana Blake Exam Const General: cooperative, healthy appearing, comfortable, no acute distress and well developed Nutritional Appearance: average body habitus and well nourished Orientation: alert and awake [facility] Head: normal to inspection Mouth: moist mucous membranes Resp Effort & Inspection: normal respiratory effort, able to speak in complete sentences and no respiratory distress Auscultation: clear to auscultation bilaterally, no rales, no rhonchi and no wheezes Cardio Rate: regular rate Rhythm: regular rhythm Heart Sounds: S1 normal and S2 normal GI Inspection: normal to inspection Palpation: soft, no hepatosplenomegaly and tender in the RUQ; Rodriguez's sign negative and with no rebound tenderness Auscultation: normal bowel sounds Back/Spine/Pelvis Back: no CVA tenderness Skin General skin exam: no rashes or lesions noted Trauma: no lacerations or abrasions Neuro General: patient alert and patient awake Cognition: normal cognition Speech: speech normal Gait: normal gait Psych Appearance: grossly normal and well kempt Mental Status: mental status grossly normal Speech and Movement: speech and movement normal Course Vital Signs Vital signs: Vital Signs Temperature 36.4 C L 07/20/20 20:39 Pulse 99 H 07/20/20 20:39 Respiratory Rate 16 07/20/20 20:39 Blood Pressure 127/73 07/20/20 20:39 Pulse Oximetry 99 07/20/20 20:39 Temperature 36.4 C L 07/20/20 20:39 Pulse 99 H 07/20/20 20:39 Respiratory Rate 16 07/20/20 20:39 Respiratory Effort Non-Labored 07/20/20 20:44 Blood Pressure 127/73 07/20/20 20:39 Blood Pressure Position Sitting 07/20/20 20:39 Pulse Oximetry 99 07/20/20 20:39 Oxygen Delivery Method Room Air 07/20/20 20:39 Oxygen Flow Rate 0 07/20/20 20:39 Pain Level 5 07/20/20 20:44
[2020-07-20 21:46] VITALS: BP 110/63; PULSE 85; RESP 14; O2SAT 95
[2020-07-20 21:54] LABS: Abs Immature Grans 0.07 10^3/uL (0.0-0.06); Absolute Basophil Count 0.04 10^3/uL (0.0-0.2); Absolute Monocyte Count 0.47 10^3/uL (0.1-0.8); Basophils % 0.2; HCT 40.4 % (36.0-46.0); HGB 13.7 g/dL (11.2-15.7); Immature Grans % 0.4; Lymphocytes % 7.1; MCH 30.2 pg (27.0-33.0); MCHC 33.9 % (32.0-36.0); MPV 10.4 fL (8.0-11.0); Monocytes % 2.6; Neutrophils % 89.7; Nucleated RBC 0 %; Platelet Count 340 10^3/uL (130-400); RBC 4.54 10^6/uL (3.93-5.22); RDW 12.6 % (11.7-14.6); RDW-SD 40.8 fL; WBC 17.92 10^3/uL (4.4-10.8)
[2020-07-20 21:56] LABS: Absolute Lymphocyte Count 1.27 10^3/uL (1.2-3.4); Absolute Neutrophil Count 16.07 10^3/uL (1.2-6.7)
[2020-07-20] MEDS: Acetaminophen 500 MG TAB 1000 MG PO (21:56)
[2020-07-20 21:59] LABS: Bilirubin Small (Negative); Blood Negative (Negative); Clarity Clear (Clear); Glucose Negative (Negative); Ketones >=160 mg/dL (Negative); Leukocyte Esterase Negative (Negative); Nitrite Negative (Negative)
[2020-07-20 22:07] LABS: Lipase 129 U/L (73-393)
[2020-07-20 22:07] LABS: Bacteria Negative HPF (Negative); Epithelial Cells Moderate HPF (Negative); Other Cells Negative (Negative); RBC Negative HPF (0-2); WBC 0-2 HPF (0-5)
[2020-07-20 22:08] LABS: C & S Indicated? No; Casts Negative LPF (Negative); Crystals Negative HPF (Negative); Mucus Moderate (Negative)
[2020-07-20 22:10] LABS: ALT 137 U/L (14-59); AST 153 U/L (15-37); Albumin 3.7 g/dL (3.4-5.0); Alkaline Phosphatase 79 U/L (46-116); Anion Gap 9.4 mmol/L (3-11); BUN 8 mg/dL (7-18); Bilirubin, Total 0.6 mg/dL (0.2-1.0); CO2 25.6 mmol/L (21.0-32.0); CREATININE 0.7 mg/dL (0.55-1.02); Calcium 9.1 mg/dL (8.5-10.1); Chloride 102 mmol/L (98-107); Glucose 107 mg/dL (74-106); Potassium 3.5 mmol/L (3.5-5.1); Sodium 137 mmol/L (136-145); Total Protein 7.9 g/dL (6.4-8.2)
[2020-07-21 00:08] VITALS: BP 116/67; PULSE 74; RESP 18; O2SAT 98
== END 2020-07-21 00:15 | disposition home or self-care (01) ==
PROVIDERS: Emergency Provider Physician Assistant; PCP Nurse Practitioner
DX: O26.611 Liver and biliary tract disorders in pregnancy, first trimester (principal); Z3A.11 11 weeks gestation of pregnancy; K80.20 Calculus of gallbladder without cholecystitis without obstruction; R74.01 Elevation of levels of liver transaminase levels; D72.829 Elevated white blood cell count, unspecified; R11.2 Nausea with vomiting, unspecified
CPT/HCPCS: 36415; 80053; 83690; 99283; 81003; 81015; 85025

== ENCOUNTER 2020-07-21 09:56 | Outpatient (CLI) | payer MEDICAID, SELFPAY ==
--- NOTE | 2020-07-21 | DI.US_ITS ---
EXAM: US ABDOMEN CLINICAL HISTORY: TRANSAMINITIS, PAIN POST EATING TECHNIQUE: Ultrasound abdomen performed using standard protocol. COMPARISON: No exams were available for comparison FINDINGS: ABDOMINAL AORTA AND IVC: Visualized portions normal caliber. PANCREAS: Normal where visualized. LIVER: Normal. Hepatopedal flow in the Portal Vein. GALLBLADDER: There are multiple gallstones present. No evidence of wall thickening. No pericholecyst ic fluid identified. BILIARY SYSTEM: Common bile duct measures < 7 mm. No intrahepatic biliary ductal dilation. VILLASENOR'S SIGN: Negative. KIDNEYS: Kidneys are symmetric in size. No evidence of renal calculi. No evidence of hydronephrosis. No renal mass or cyst identified. SPLEEN: Not enlarged. ASCITES: None seen. IMPRESSION: 1. Cholelithiasis. No sonographic findings to suggest acute cholecystitis. 2. Results of this exam have been verbally communicated with provider. DATA REPOSITORY:
== END 2020-07-21 10:16 ==
PROVIDERS: PCP Nurse Practitioner; Visit Provider Physician Assistant
DX: K80.20 Calculus of gallbladder without cholecystitis without obstruction (principal); R10.9 Unspecified abdominal pain; R74.01 Elevation of levels of liver transaminase levels
CPT/HCPCS: 76700

== ENCOUNTER 2020-07-21 10:09 | Emergency (ER) | payer MEDICAID, SELFPAY ==
[2020-07-21 10:14] VITALS: BP 128/82; PULSE 79; RESP 18; TEMP 36.2; O2SAT 100
--- NOTE | 2020-07-21 10:25 | W.ED.GENAD ---
Discharge Plan Disposition Patient Disposition: HOME Condition: Improving Discharge Details Clinical Impression: Biliary colic Primary Care Provider: Luma Diaz ED Provider: Chad Grace Home Meds and New Rx's Prescriptions: Continued prenat.vits,jil,jqh-wgnw-ocjhk tablet 1 tab PO DAILY RF: 0 alfalfa 250 mg tablet 650 mg PO DAILY RF: 0 magnesium 250 mg tablet 250 mg PO DAILY PRNRF: 0 cholecalciferol (vitamin D3) 100 mcg (4,000 unit) capsule 1,000 unit PO PRN RF: 0 Senna Plus 8.6-50 mg capsule 1 tab-cap PO .COMPLEX PRNRF: 0 Discharge Instructions Instructions: Abdominal Pain (ED) Additional Instructions: Return if you have a fever, worsening pain, or any other acute concerns. Your ultrasound images have been forwarded to the [facility] ms sql server developer. Continue to observe a low-fat diet Please follow-up with Dr. Butler tomorrow at 11 AM as planned. Medical Decision Making 29-year-old female who is in her first trimester of . Seen in the ER last night for upper abdominal pain. She had slight transaminitis but no fever and no elevated bilirubin. She was referred for ultrasound today, which revealed mobile gallstones, no ductal dilatation, no pericholecystic fluid and a negative Rodriguez sign. She has arranged follow-up at the general surgery clinic at [facility] for tomorrow. She may need a elective cholecystectomy, but does not have evidence of cholecystitis or active pain at this time. We will forward the images to the [facility] ms sql server developer. The patient is stable and appropriate for outpatient management at this time HPI General Mode of arrival: ambulatory. Date/Time Provider Initiated Documentation: 07/21/20 10:19. Limitations to Documentation: no limitations. Information obtained by: patient. History of Present Illness 29 year old F presents to the emergency department with the chief complaint of Here for ultrasound results, no current pain, No relieving factors improve symptom(s), No exacerbating factors reported . Patient notes denies fever/chills, nausea/vomiting and weakness. Patient did receive the following treatments prior to arrival, none Related Data Home Medications Medication Instructions Recorded Confirmed prenat.vits,jil,bga-auxn-trgco 1 tab PO DAILY 02/05/18 07/21/20 magnesium 250 mg tablet 250 mg PO DAILY PRN 09/28/18 07/21/20 cholecalciferol (vitamin D3) 100 1,000 unit PO PRN cap 07/26/19 07/21/20 mcg (4,000 unit) capsule sennosides 8.6 mg-docusate sodium 1 tab-cap PO .COMPLEX PRN 10/28/19 07/21/20 50 mg capsule alfalfa 250 mg tablet 650 mg PO DAILY tab 06/22/20 07/21/20 Allergies Allergy/AdvReac Type Severity Reaction Status Date / Time house dust Allergy Mild Unverified 07/21/20 10:17 jaison Allergy Hives Verified 07/21/20 10:17 soap Allergy Blisters Verified 07/21/20 10:17 on hands pollen Allergy Intermediate Uncoded 07/21/20 10:17 General Stated Complaint: Recheck YAMILEX: 3 Review of Systems Narrative: 12 weeks . No vaginal bleeding or discharge. No fever, no vomiting, no pain at this time [facility] Medical History Family history of hypothyroidism Ingrown left big toenail Ingrown nail of great toe of right foot Surgical History [place] teeth removed Family History Mother Thyroid disorder hypothyroid History of hysterectomy for benign disease fibroids Hx laparoscopic cholecystectomy Sister Raynaud's disease Thyroid disorder hypothyroid Maternal Grandmother Hypertension Parkinson's disease Maternal Grandfather Hypertension Myocardial infarction Paternal Grandmother Diabetes Hypertension Breast cancer Paternal Grandfather Hx of cholecystectomy Brother Liver disease Father No problems noted. Sister No problems noted. Sister No problems noted. Brother No problems noted. Brother Hypothyroid Sister No problems noted. Daughter No problems noted. Social History Smoking/Tobacco Use Status: Never Second Hand Exposure: Yes Smoking risk assessment performed?: Yes Alcohol Intake: former Details: social, 1x/mos. w/o use w/ knowledge of . Drug use: Never Substance use type: does not use Adopted: No Caregiver/Support person: No Foster care: No Household members: spouse and children Housing: house Number of Children: 0 Communication Needs: None Do you need help understanding health information?: Never current occupation: nurse [employer]. Pets and animals: Yes Pets and animals: dog(s) Sexually active: Yes Do you think of yourself as: straight/heterosexual Current gender identity: female What is your relationship status?: How often do you talk on the phone with friends or family?: three or more times per week How often do you get together with friends or relatives?: once per week How often do you attend mormon or shinto services?: 4 or more times per year Do you belong to any clubs or organized social groups?: yes Panel score (0-1 are the most socially isolated patients): 4 What type of physical activity do you participate in: other Frequency: daily Sadaf/Denominational: methodist Special sadaf needs: No Agree to transfusion: Yes Seatbelt use: always Helmet use: Yes (not w/ bicycle, enc. 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 Water heater temp set <120 deg: No (unknown, will check.) Working smoke detector in home: Yes Fire extinguisher in home: Yes Carbon monox detector in home: Yes Firearms in home: Yes (yes,) Do you feel safe at home: Yes Do you feel safe in your relationship?: Yes Victim of physical abuse: No Victim of emotional abuse: No Victim of sexual abuse: No Female Reproductive History Menstrual Age of Menarche: 13 Duration of menses: 3-5 days control method: none History History 3 Para 2 Hx # Term Pregnancies 2 Multiple births 0 Hx # Pregnancies 0 Ectopic pregnancies 0 AB induced 0 Hx Number of Living Children 2 AB spontaneous 0 Past Pregnancies Del. Date GA/Weeks # Outcome Route Wgt Sex Labor Lgth Anesthesia Location [facility] 09/14/18 41 No Successful vaginal 4167.38 g Female ashley Powers CNM 11/07/19 39 No Successful vaginal 3883.885 g Male ashley Powers CNM Delivery Date: 09/14/18 IOL for postdates and PROM, prolonged labor> 20 hrs, pit aug, epidural Yana Blake Delivery Date: 11/07/19 IOL for unstable lie, epidural, had decreased FHT with bright red bleeding right before delivery, tight nuchal cord, first degree Yana Blake Exam Narrative Exam Narrative: GEN: awake, alert, oriented 3. Pleasant, well groomed, interactive. HEAD: Normocephalic, atraumatic ENT: Mucous membranes moist, oropharynx unremarkable, External ear exam unremarkable EYES: PERRL, EOMI NECK: Full ROM, no DANAY, no menigismus CHEST/RESP: Nontender, clear to auscultation bilateral, no wheeze/rhonchi/rales CARDIOVASCULAR: RRR, no murmur, rub sky. 2+ Rad pulse bilateral ABDOMEN: Soft, nontender. +Bowel sounds EXT: Full ROM, no edema, no rash Neuro: Grossly normal neurologic exam, conversant, interactive. Psych: Speech fluent, thoughts congruent, affect normal Course Vital Signs Vital signs: Vital Signs Temperature 36.2 C L 07/21/20 10:14 Pulse 79 07/21/20 10:14 Respiratory Rate 18 07/21/20 10:14 Blood Pressure 128/82 07/21/20 10:14 Pulse Oximetry 100 07/21/20 10:14 Temperature 36.2 C L 07/21/20 10:14 Temperature Source Skin 07/21/20 10:14 Pulse 79 07/21/20 10:14 Respiratory Rate 18 07/21/20 10:14 Respiratory Effort Non-Labored 07/21/20 10:16 Blood Pressure 128/82 07/21/20 10:14 Blood Pressure Position Sitting 07/21/20 10:14 Pulse Oximetry 100 07/21/20 10:14 Oxygen Delivery Method Room Air 07/21/20 10:14 Oxygen Flow Rate 0 07/21/20 10:14 Pain Level 2 07/21/20 10:14
== END 2020-07-21 10:32 | disposition home or self-care (01) ==
PROVIDERS: Emergency Provider Emergency Medicine; PCP Nurse Practitioner
DX: O26.611 Liver and biliary tract disorders in pregnancy, first trimester (principal); Z3A.11 11 weeks gestation of pregnancy; K80.20 Calculus of gallbladder without cholecystitis without obstruction; Z71.2 Person consulting for explanation of examination or test findings

== ENCOUNTER 2020-08-10 17:25 | Outpatient (REF) | payer MEDICAID, SELFPAY ==
[2020-08-12 14:20] LABS: Chlamydia Result Negative (Negative); GC Result Negative (Negative)
== END 2020-08-10 17:26 | disposition home or self-care (01) ==
LOC: LBN 17:25
PROVIDERS: PCP Nurse Practitioner; Visit Provider Advanced Practice Midwife
DX: Z34.91 Encounter for supervision of normal pregnancy, unspecified, first trimester (principal); Z11.3 Encounter for screening for infections with a predominantly sexual mode of transmission; Z3A.15 15 weeks gestation of pregnancy
CPT/HCPCS: 87491; 87591

== ENCOUNTER 2020-09-07 01:38 | Outpatient (CLI) | payer MEDICAID, SELFPAY ==
--- NOTE | 2020-09-07 07:45 | DI.US_ITS ---
Exam(s) US OB 2-3 TRIMESTER EXAM: US OB 2-3 TRIMESTER CLINICAL HISTORY: anatomy US,Z34.90. TECHNIQUE: Transabdominal obstetrical ultrasound was performed. COMPARISON: US US ABDOMEN from 07/21/2020 FINDINGS: There is a single viable intrauterine gestation with cardiac activity identified-141 bpm. Amniotic fluid: There is a normal amount of amniotic fluid. Placental location: The placenta is anterior grade 1,with no evidence of placenta previa.The distance from the tip of the placenta to the internal cervical os is 2.7 cm on today's study. ANATOMY: A 3 vessel umbilical cord is seen. A four-chamber cardiac view was obtained. Right and left ventricular outflow tracts were imaged. There are no obvious abnormalities of the spinal column evident. There is no obvious abnormal ity of the anterior abdominal wall. stomach and urinary bladder are identified and there is no evidence of hydronephrosis. No abnormalities of the upper lip region are identified. No evidence of choroid plexus cysts i n the brain. Dating parameters place this at approximately 19 weeks and 6 days gestational age. BPD measures 19 weeks and 5 days HC measures 19 weeks and 6 days AC measures 20 weeks and 4 days FL measures 19 weeks and 3 days Estimated weight is 327 gm-0 pounds, 12 ounces. Fetus is at the 98th percentile on the Hadlock scale. IMPRESSION:: Single viable intrauterine gestation which is approximately 19 weeks and 6 days gestati onal age, implying an SADA of January 26, 2021. There are no obvious anomalies evident on today's study. The placenta is anterior with no evidence of placenta previa. There is a normal amount of amniotic fluid. DATA REPOSITORY:
== END 2020-09-07 01:58 ==
PROVIDERS: PCP Nurse Practitioner; Visit Provider Advanced Practice Midwife
DX: Z34.92 Encounter for supervision of normal pregnancy, unspecified, second trimester (principal); Z3A.19 19 weeks gestation of pregnancy
CPT/HCPCS: 76805

== ENCOUNTER 2020-10-05 03:23 | Outpatient (CLI) | payer MEDICAID, SELFPAY ==
[2020-10-05 14:35] LABS: FREE T4 0.86 ng/dL (0.76-1.46); TSH 0.27 uIU/mL (0.36-3.74)
== END 2020-10-05 03:24 | disposition home or self-care (01) ==
LOC: LBO 03:23
PROVIDERS: PCP Nurse Practitioner; Visit Provider Advanced Practice Midwife
DX: E03.9 Hypothyroidism, unspecified (principal)
CPT/HCPCS: 36415; 84439; 84443

== ENCOUNTER 2020-11-02 03:40 | Outpatient (CLI) | payer MEDICAID, SELFPAY ==
[2020-11-02 14:17] LABS: HCT 35.4 % (36.0-46.0); HGB 11.7 g/dL (11.2-15.7); MCH 30.6 pg (27.0-33.0); MCHC 33.1 % (32.0-36.0); MCV 92.7 fL (80-95); MPV 10.4 fL (8.0-11.0); Platelet Count 246 10^3/uL (130-400); RBC 3.82 10^6/uL (3.93-5.22); RDW-SD 47.8 fL
[2020-11-02 14:29] LABS: Glucose,1 Hr (Glucola) 100 mg/dL (80-140)
== END 2020-11-02 03:41 | disposition home or self-care (01) ==
PROVIDERS: PCP Nurse Practitioner; Visit Provider Advanced Practice Midwife
DX: Z34.92 Encounter for supervision of normal pregnancy, unspecified, second trimester (principal); Z3A.27 27 weeks gestation of pregnancy
CPT/HCPCS: 36415; 82950; 85027

== ENCOUNTER 2020-11-23 03:53 | Outpatient (CLI) | payer MEDICAID, SELFPAY | END 2020-11-23 03:54 | disposition home or self-care (01) | LOC: LBO 03:53 | PROVIDERS: PCP Nurse Practitioner; Visit Provider Advanced Practice Midwife | DX: O26.893 Other specified pregnancy related conditions, third trimester (principal); Z67.91 Unspecified blood type, Rh negative; Z3A.30 30 weeks gestation of pregnancy | CPT/HCPCS: 36415; 86850; 90384 ==

== ENCOUNTER 2021-01-04 19:18 | Outpatient (REF) | payer MEDICAID, SELFPAY ==
[2021-01-04 20:53] LABS: *AMPHETAMINES SCREEN URINE Negative (Negative); *BARBITURATES SCREEN URINE Negative (Negative); *BENZODIAZEPINES SCREEN URINE Negative (Negative); Cannabinoids THC Negative (Negative); Cocaine Screen,Urine Negative (Negative); METHADONE URINE SCREEN Negative (Negative); OPIATES URINE SCREEN Negative (Negative)
[2021-01-04 20:54] LABS: Tricyclic Antidepressants Negative (Negative)
[2021-01-09 12:30] LABS: Buprenorphine Negative ng/mL (Cutoff: 5.0); Norbuprenorphine Negative ng/mL (Cutoff: 2.5)
== END 2021-01-04 19:19 | disposition home or self-care (01) ==
LOC: LBN 19:18
PROVIDERS: PCP Nurse Practitioner; Visit Provider Advanced Practice Midwife
DX: Z34.93 Encounter for supervision of normal pregnancy, unspecified, third trimester (principal)
CPT/HCPCS: 80307; 87081

== ENCOUNTER 2021-02-08 00:30 | Inpatient (IN) | payer MEDICAID, SELFPAY ==
[2021-02-08] VITALS (16 sets, daily range): BP systolic 110–154; BP diastolic 70–92; PULSE 82–131; RESP 14–18; TEMP 36.3–36.8
--- NOTE | 2021-02-08 01:02 | HPE_ITS ---
Date of service: 02/08/21 Time of Service: 01:02 Assessment and Plan Assessment and plan (1) Spontaneous onset of labor: Status: Acute Assessment and plan: Admit to Center. Comfort measures. Covid- 19 test. Anticipate . OB-HPI Labor/Delivery History of Present Illness Reason for Visit: rule out labor Chief Complaint: Uterine Contractions. SADA Calculator Estimated Delivery Date Method Current WG Current Estimate 02/01/21 Ultrasound #1 41w 0d Other Estimates 01/13/21 LMP (Certain) 43w 5d Comments: strong regular contractions at home. History of Present Expected Delivery Route/Plan - CNM FOB/ - Fabricio Hoover BG- Maria Guadalupe combination breast and bottle with emphasis on breast GBS negative Would like to avoid epidural if possible Specific Issues/Plan 1. Prev macrosomia and BMI @ 31; early glucola-81 1a. Gila declines 3-hr GTT. She would prefer to test at home QID if 1-hr GTT is elevated at 28 weeks. 2. Gallbladder attacks weekly for 2 months, then x2/wk recently, 2a. Ultrasound at [facility] done, pt has chronic cholecystitis with cholelithiasis (gravel) 2b. referral/consult ordered to [facility] general surgery 07/02 (pt preference) 2c. Has scheduled cholycystectomy scheduled 08/05/20 at [facility] 3. Closely spaced pregnancies: conceived at 6 months 4. Desires Quad screen. declines Agency, known CF negative - declines AFP 4 5. Declines low dose ASA for BMI of 31 and fam hx pre-eclampsia 6. Has never had a PAP smear, declines initial OB pelvic exam 7. TSH 0.12, T4 1.02, repeat 2nd trimester, drawn 10/05. 7a. TSH at 23 wks nml at 0.27, free thyroxine=0.86 7b. Repeat TSH and T4 in labor 8. Varicella Non-Immune, pt aware, declines vaccination 9. Declined TDaP, declines flu vaccine. 10. Gila and her will not be receiving covid vaccine. [facility] Medical History (Updated 02/08/21 @ 01:04 by Irina Powers CNM) 11 weeks gestation of Biliary colic Cholelithiasis affecting in first trimester, antepartum see US from [place] in May 2020 Family history of hypothyroidism Ingrown left big toenail Ingrown nail of great toe of right foot Surgical History (Updated 10/05/20 @ 14:51 by Yana Blake) [place] teeth removed Family History Mother Thyroid disorder hypothyroid History of hysterectomy for benign disease fibroids Hx laparoscopic cholecystectomy Sister Raynaud's disease Thyroid disorder hypothyroid Maternal Grandmother Hypertension Parkinson's disease Maternal Grandfather Hypertension Myocardial infarction Paternal Grandmother Diabetes Hypertension Breast cancer Paternal Grandfather Hx of cholecystectomy Brother Liver disease Father No problems noted. Sister No problems noted. Sister No problems noted. Brother No problems noted. Brother Hypothyroid Sister No problems noted. Daughter No problems noted. Social History Smoking/Tobacco Use Status: Never Second Hand Exposure: Yes Smoking risk assessment performed?: Yes Alcohol Intake: former Details: social, 1x/mos. w/o use w/ knowledge of . Drug use: Never Substance use type: does not use Adopted: No Caregiver/Support person: No Foster care: No Household members: spouse and children Housing: house Number of Children: 0 Communication Needs: None Do you need help understanding health information?: Never current occupation: nurse [employer]. Pets and animals: Yes Pets and animals: dog(s) Sexually active: Yes Do you think of yourself as: straight/heterosexual Current gender identity: female What is your relationship status?: How often do you talk on the phone with friends or family?: three or more times per week How often do you get together with friends or relatives?: once per week How often do you attend zoroastrianism or latter-day services?: 4 or more times per year Do you belong to any clubs or organized social groups?: yes Panel score (0-1 are the most socially isolated patients): 4 What type of physical activity do you participate in: other Frequency: daily Sadaf/Scientologist: tenriism Special sadaf needs: No Agree to transfusion: Yes Seatbelt use: always Helmet use: Yes (not w/ bicycle, enc. to use at all times.) Helmet use: sometimes Drive intox or ride w/intox diesel truck driver: No Water heater temp set <120 deg: No (unknown, will check.) Working smoke detector in home: Yes Fire extinguisher in home: Yes Carbon monox detector in home: Yes Firearms in home: Yes (yes,) Do you feel safe at home: Yes Do you feel safe in your relationship?: Yes Victim of physical abuse: No Victim of emotional abuse: No Victim of sexual abuse: No Female Reproductive History Menstrual Age of Menarche: 13 Duration of menses: 3-5 days control method: none History History 3 Para 2 Hx # Term Pregnancies 2 Multiple births 0 Hx # Pregnancies 0 Ectopic pregnancies 0 AB induced 0 Hx Number of Living Children 2 AB spontaneous 0 Past Pregnancies Del. Date GA/Weeks # Outcome Route Wgt Sex Labor Lgth Anesthes ia Location Prov Complic 09/14/18 41 No Successful vaginal 9 lb 3 oz Female ashley Hollingsworth CNM 11/07/19 39 No Successful vaginal 8 lb 9 oz Male 24 hours [facility] Froylan Powers CNM Delivery Date: 09/14/18 IOL for postdates and PROM, prolonged labor> 20 hrs, pit aug, epidural Yana Blake Delivery Date: 11/07/19 IOL for unstable lie, epidural, had decreased FHT with bright red bleeding right before delivery, tight nuchal cord, first degree Yana Blake Meds Allergies and Home Medications Allergies Allergy/AdvReac Type Severity Reaction Status Date / Time house dust Allergy Mild Verified 02/02/21 13:29 jaison Allergy Hives Verified 02/02/21 13:29 soap Allergy Blisters Verified 02/02/21 13:29 on hands pollen Allergy Intermediate Uncoded 01/25/21 14:04 Home Medications Medication Instructions Recorded Confirmed Type prenat.vits,jil,nmy-jkbl-csgzl 1 tab PO DAILY 02/05/18 01/25/21 History magnesium 250 mg tablet 250 mg PO DAILY PRN 09/28/18 01/25/21 History cholecalciferol (vitamin D3) 100 1,000 unit PO PRN cap 07/26/19 01/25/21 History mcg (4,000 unit) capsule sennosides 8.6 mg-docusate sodium 1 tab-cap PO .COMPLEX PRN 10/28/19 01/25/21 History 50 mg capsule loratadine 10 mg tablet 10 mg PO DAILY 11/02/20 01/25/21 History ascorbate calcium (vitamin C) 500 1 g PO DAILY PRN tab 01/25/21 01/25/21 History mg tablet Exam Physical Exam Vital signs: Pulse BP 125 H 154/92 H 02/08/21 00:40 02/08/21 00:40 Vital Signs Reviewed: Yes Constitutional Constitutional: no acute distress Detailed Labor and Delivery Exam Dilation: 2 Effacement (%): 100 station: -1 Cervix position: mid Consistency: soft Man Score: Cervical Points Exam 0 1 2 3 Dilation Closed 1-2cm 3-4 cm 5-6cm Effacement 0-30% 40-50% 60-70% 80% Consistency Firm Medium Soft Station -3 -2 -1,0 +1,+2 Position Posterior Mid Anterior Amniotic Membrane Status: Intact Monitor Mode: External Contraction Frequency(min): every 3 minutes Contraction Duration(sec): 60 Contraction Intensity: Moderate Fetus A Heart Rate Baseline: 140 Monitor Decelerations: None Variability: Moderate (6-25 BPM) Presentation: Cephalic Categories: Category I Respiratory Exam Respiratory Exam: Normal Cardiovascular Exam Cardiovascular Exam: Normal Abdominal Exam Abdominal Exam: Normal Rectal Exam Rectal Exam: Normal Exam Exam: Normal Extremities Exam Extremities Exam: Normal Skin Exam Skin Exam: Normal Psychiatric Exam Psychiatric Exam: Normal Risk Assessment Risk for Shoulder Dystocia Historical/Initial OB: POSITIVE FOR: Pre- BMI>30 and Previous Macrosomia; NEGATIVE FOR: Pelvic Abnormality or Previous Shoulder Dystocia 40 Weeks: POSTIVE FOR: Post Dates; NEGATIVE FOR: EFW> 4500 gms or Maternal Weight Gain >40lb Increased Risk?: Yes Counseling: proven to 9'3 Risk for Pre-Eclampsia Date Initiated/Initials: pt advised, she declines at this time 07/13. jk Yes, if one or more: NEGATIVE FOR: Hx Pre-E/Gest HTN, Chronic HTN, Multiple Gestation, Pre-gestational DM, Renal Disease, Systemic Lupus or APA Syndrome Yes, if 2 or more: POSITIVE FOR: BMI>30 and Mother/Sister w/ Pre-E; NEGATIVE FOR: Nulliparity, Age>= 35 yrs, >10yr btwn pregnancies, ethinicty or Previous IUGR Risk for Post- Hemorrhage Initial: NEGATIVE FOR: Multiple Gestation, Previous PPH, Known Clotting Deficiency, Grand Multiparity or Anticoagulation At Risk?: No Risks Reviewed Risks Reviewed Upon Admission: Yes
[2021-02-08 02:11] LABS: Source Nasal/Nares
[2021-02-08 03:01] LABS: COVID-19 PCR Negative (Negative)
[2021-02-08 03:36] LABS: HCT 39.3 % (36.0-46.0); HGB 13.1 g/dL (11.2-15.7); MCH 30.3 pg (27.0-33.0); MCHC 33.3 % (32.0-36.0); MPV 11.4 fL (8.0-11.0); Platelet Count 240 10^3/uL (130-400); RBC 4.32 10^6/uL (3.93-5.22); RDW 14.2 % (11.7-14.6); RDW-SD 47.7 fL; WBC 14.13 10^3/uL (4.4-10.8)
--- NOTE | 2021-02-08 04:39 | W.PM.OBNL1 ---
Date of service: 02/08/21 Time of Service: 04:39 Pelvic Exam Comments: Coping well with contractions. Gila expressed a desire to try to sleep for a while. She is currently sleeping. Category 1 tracing. Will reassess when she awakes. Anticipate Objective Abnormal lab results 02/08/21 Range/Units 03:13 WBC 14.13 H (4.4-10.8) 10^3/uL MPV 11.4 H (8.0-11.0) fL Pulse BP 82 121/72 02/08/21 02:05 02/08/21 02:05 Laboratory Results WBC 14.13 10^3/uL (4.4-10.8) H 02/08/21 03:13 RBC 4.32 10^6/uL (3.93-5.22) 02/08/21 03:13 Hgb 13.1 g/dL (11.2-15.7) 02/08/21 03:13 Hct 39.3 % (36.0-46.0) 02/08/21 03:13 MCV 91.0 fL (80-95) 02/08/21 03:13 MCH 30.3 pg (27.0-33.0) 02/08/21 03:13 MCHC 33.3 % (32.0-36.0) 02/08/21 03:13 RDW 14.2 % (11.7-14.6) 02/08/21 03:13 Plt Count 240 10^3/uL (130-400) 02/08/21 03:13 MPV 11.4 fL (8.0-11.0) H 02/08/21 03:13 COVID-19 Source Nasal/Nares 02/08/21 02:10 SARS-CoV-2 (PCR) Negative (Negative) 02/08/21 02:10 Subjective Patient Reports: No new Complaints Results Hemoglobin/Hematocrit: Hgb 13.1 g/dL (11.2-15.7) 02/08/21 03:13 Hct 39.3 % (36.0-46.0) 02/08/21 03:13 Abnormal Lab Findings: Abnormal Labs 02/08/21 03:13 WBC 14.13 H MPV 11.4 H
[2021-02-08] MEDS: Oxytocin 10 UNITS/ML VIAL IM (09:10)
[2021-02-08] MEDS: Acetaminophen 325 MG TAB (10:32)
[2021-02-08] MEDS: Ibuprofen 600 MG TAB (10:32)
--- NOTE | 2021-02-08 14:44 | OBVDS_ITS ---
Date of service: 02/08/21 Time of Service: 12:00 OB Labor/ Delivery Information Baby A Delivery Delivery Method: Spontaneaous Presentation: Cephalic Cephalic Position: Vertex Vertex Position: Right Occipital Anterior Cord Description-Baby A: 3 Vessels Amniotic Fluid: Clear Estimated Blood Loss: 300 Delivery Outcome: Liveborn Transferred: Remains with Mother Note: FHTs 130 during first stage of labor. Used the tub for comfort. P rogressed to full dilation and began pushing in the tub in squatting position. The baby delivered precipitously in the tub, delivered in MOIRA position. Baby was placed on mother's abdomen and kept automation machine operator the water. Spontaneous cry. Cord was clamped and cut by the baby's father . Gila was assited to the bed for delivery of the placenta which was delivered spontaneously and appears to by intact with a three vessel cord. Pitocin 10 units IM was administered after delivery of the placenta. The perineum was inspected and it appears intact with a perineal abrasion which was not repaired . The baby did breastfeed. After delivery, Mother and baby father of the baby were stable and bonding well in the delivery room and there were no complications. Providers Nurse Food Services Coordinator: Irina Powers Line Maintainer: Florencia Giron Nurse: Nakul Hartley Labor/Delivery Information Number of Babies in Womb: 1 Steroids Given: None Group Beta Strep: Negative Antibiotics Administered: No Rubella Status: Immune Blood Type: O- Varicella Immunity: Nonimmune Born En Route: No Maternal Complications: None Shoulder Dystocia: No Stages of Labor Onset of Labor Date: 02/07/21 Onset of Labor Time: 00:00 Complete Dilatation Date: 02/08/21 Complete Dilatation Time: 09:56 Labor - Stage 1 Duration: 24 hours and 0 minutes ROM Baby A: 02/08/21 ROM Baby A: 09:55 ROM Total Time- Baby A: [id number] Infant Delivery Date-Baby A: 02/08/21 Infant Delivery Time-Baby A: 09:57 Labor Stage 2 Duration: 1 minutes Placenta Delivery Date-Baby A: 02/08/21 Placenta Delivery Time-Baby A: 10:09 Labor-Stage 3 Duration: 12 minutes Total Length of Labor-Baby A: 33 hours and 57 minutes Placenta Cultured: No Placenta Status: Delivered Baby A Infant Gender: Female Gestational Status: Postterm (>42 wks) Gestational Age in Weeks/Days: 41 Weeks and 0 Days weight: 8 lb 12.038 oz Length-Baby A: 21.46 in Score-1 Minute Interval(Baby A) Heart Rate-1 minute: 100 BPM or Greater Respiratory Effort- 1 minute: Spontaneous/Strong Cry Muscle Tone-1 minute: Active Movement Reflex Response-1 minute: Prompt Response Color-1 minute: Bluish Hands or Feet Total Score-1 minute: 9 Score-5 Minute Interval(Baby A) Heart Rate- 5 minute: 100 BPM or Greater Respiratory Effort-5 minute: Spontaneous/Strong Cry Muscle Tone-5 minute: Active Movement Reflex Response-5 minute: Prompt Response Color-5 minute: Bluish Hands or Feet Total Score- 5 minute: 9 Hemorrrhage Note Total Blood Loss for PPH Event Quantitative Blood Loss: 300
[2021-02-08] MEDS: Acetaminophen 325 MG TAB 650 MG PO ×2 (16:09→20:00)
[2021-02-08] MEDS: Ibuprofen 600 MG TAB PO ×2 (16:09→22:00)
[2021-02-09 07:45] VITALS: BP 111/76; PULSE 14; TEMP 36.4
[2021-02-09] MEDS: Ibuprofen 600 MG TAB PO (08:05)
[2021-02-09] MEDS: Acetaminophen 325 MG TAB 650 MG PO (08:05)
[2021-02-09 09:46] LABS: HCT 35.4 % (36.0-46.0); HGB 11.7 g/dL (11.2-15.7); MCH 30.5 pg (27.0-33.0); MCV 92.4 fL (80-95); RBC 3.83 10^6/uL (3.93-5.22)
[2021-02-09 09:47] LABS: MCHC 33.1 % (32.0-36.0); MPV 10.9 fL (8.0-11.0); Platelet Count 296 10^3/uL (130-400); RDW 14.3 % (11.7-14.6); RDW-SD 48.2 fL
--- NOTE | 2021-02-09 12:10 | DSE_ITS ---
Date of service: 02/09/21 Time of Service: 12:10 DS: Diagnosis Discharge Diagnosis (1) Term of female : Status: Acute Asessment and Plan: Caring for baby independently. Pain is managed well with oral analgesics. Voiding without difficulty. well. A - stable mother and baby , Post day 1 P - Discharge to home today . Routine post instructions. [facility] Discharge Plan Disposition Condition: Good Discharge Details Reason For Visit: Rule Out Labor Admit Date/Time: 02/08/21 00:30 Admit Provider: Irina Powers Attending Provider: Irina Powers Primary Care Provider: Luma Diaz Home Meds and New Rx's Prescriptions: No Action prenat.vits,jil,buj-wlzi-orpds tablet 1 tab PO DAILY RF: 0 magnesium 250 mg tablet 250 mg PO DAILY PRNRF: 0 cholecalciferol (vitamin D3) 100 mcg (4,000 unit) capsule 1,000 unit PO PRN RF: 0 Senna Plus 8.6-50 mg capsule 1 tab-cap PO .COMPLEX PRNRF: 0 ascorbate calcium (vitamin C) 500 mg tablet 1 g PO DAILY PRNRF: 0 loratadine 10 mg tablet 10 mg PO DAILY RF: 0 Discharge Instructions Stand Alone Forms: BC Post Vaginal Deliver Activity:: Activity as Tolerated Activity:: Activity as Tolerated Equipment/Supplies:: No Equipment Needed Diet:: As Tolerated OB:DS Summary Summary Vaginal Delivery Method: Spontaneaous Episiotomy Description: None Laceration Description: Other (perineal abrasion, not repaired) Contraception Discussed Contraception Discussed: Yes Contraceptive Plan: Undecided (natural family planning), [place] Infant Gender-Baby A: Female weight: 8 lb 12.038 oz Status at Discharge Functional status at discharge: independent ambulation Overall status at discharge: patient is back to baseline Mental Status: mental status grossly normal Speech and Movement: speech and movement normal Mood: congruent mood Affect: normal affect Exam Physical Exam Vital signs: Temp Pulse Resp BP 97.5 F L 14 L 18 111/76 02/09/21 07:45 02/09/21 07:45 02/08/21 23:15 02/09/21 07:45 Vital Signs Reviewed: Yes Constitutional Constitutional: no acute distress Respiratory Exam Respiratory Exam: Normal Cardiovascular Exam Cardiovascular Exam: Normal Fundal Exam Fundus: Below Umbilicus and Firm Rectal Exam Rectal Exam: Normal Extremities Exam Extremity Exam: Normal Skin Exam Skin Exam: Normal Psychiatric Exam Psychiatric Exam: Normal [facility] Active Problem List (Updated 02/09/21 @ 12:11 by Irina Powers CNM) Term of female (Acute) Spontaneous onset of labor (Acute) Unstable lie (Acute) Hx of cholecystectomy (Chronic) (Acute) Maternal varicella, non-immune (Acute) Transaminitis (Acute) Leukocytosis (Acute) Abdominal pain, RUQ (Acute) Rh negative state in antepartum period (Acute) Hypothyroid (Chronic) Family history of hypothyroidism (Acute) Medical History (Updated 02/09/21 @ 12:11 by Irina Powers CNM) 11 weeks gestation of Biliary colic Cholelithiasis affecting in first trimester, antepartum see US from [place] in May 2020 Ingrown left big toenail Ingrown nail of great toe of right foot Surgical History (Updated 10/05/20 @ 14:51 by Yana Blake) [place] teeth removed Family History Mother Thyroid disorder hypothyroid History of hysterectomy for benign disease fibroids Hx laparoscopic cholecystectomy Sister Raynaud's disease Thyroid disorder hypothyroid Maternal Grandmother Hypertension Parkinson's disease Maternal Grandfather Hypertension Myocardial infarction Paternal Grandmother Diabetes Hypertension Breast cancer Paternal Grandfather Hx of cholecystectomy Brother Liver disease Father No problems noted. Sister No problems noted. Sister No problems noted. Brother No problems noted. Brother Hypothyroid Sister No problems noted. Daughter No problems noted. Social History Smoking/Tobacco Use Status: Never Second Hand Exposure: Yes Smoking risk assessment performed?: Yes Alcohol Intake: former Details: social, 1x/mos. w/o use w/ knowledge of . Drug use: Never Substance use type: does not use Adopted: No Caregiver/Support person: No Foster care: No Household members: spouse and children Housing: house Number of Children: 0 Communication Needs: None Do you need help understanding health information?: Never current occupation: nurse [employer]. Pets and animals: Yes Pets and animals: dog(s) Sexually active: Yes Do you think of yourself as: straight/heterosexual Current gender identity: female What is your relationship status?: How often do you talk on the phone with friends or family?: three or more times per week How often do you get together with friends or relatives?: once per week How often do you attend hoahaoism or restorationism services?: 4 or more times per year Do you belong to any clubs or organized social groups?: yes Panel score (0-1 are the most socially isolated patients): 4 What type of physical activity do you participate in: other Frequency: daily Sadaf/Sikh: orthodoxy Special sadaf needs: No Agree to transfusion: Yes Seatbelt use: always Helmet use: Yes (not w/ bicycle, enc. to use at all times.) Helmet use: sometimes Drive intox or ride w/intox lift driver: No Water heater temp set <120 deg: No (unknown, will check.) Working smoke detector in home: Yes Fire extinguisher in home: Yes Carbon monox detector in home: Yes Firearms in home: Yes (yes,) Do you feel safe at home: Yes Do you feel safe in your relationship?: Yes Victim of physical abuse: No Victim of emotional abuse: No Victim of sexual abuse: No Female Reproductive History Menstrual Age of Menarche: 13 Duration of menses: 3-5 days control method: none History History 3 Para 2 Hx # Term Pregnancies 2 Multiple births 0 Hx # Pregnancies 0 Ectopic pregnancies 0 AB induced 0 Hx Number of Living Children 2 AB spontaneous 0 Past Pregnancies Del. Date GA/Weeks # Outcome Route Wgt Sex Labor Lgth Anesthes ia Location [facility] 09/14/18 41 No Successful vaginal 9 lb 3 oz Female ashley Hollingsworth CNM 11/07/19 39 No Successful vaginal 8 lb 9 oz Male 24 hours ashley Powers CNM Delivery Date: 09/14/18 IOL for postdates and PROM, prolonged labor> 20 hrs, pit aug, epidural Yana Blake Delivery Date: 11/07/19 IOL for unstable lie, epidural, had decreased FHT with bright red bleeding right before delivery, tight nuchal cord, first degree Yana Blake DS: Data Vitals/I&O Vitals and I&O: Vital Signs Temperature 97.5 F L 02/09/21 07:45 Pulse 14 L 02/09/21 07:45 Pulse Rhythm Regular 02/09/21 07:45 Respiratory Rate 18 02/08/21 23:15 Respiratory Depth Normal 02/08/21 01:05 Blood Pressure 111/76 02/09/21 07:45 Blood Pressure Mean 87 02/09/21 07:45 Pain Level 2 02/09/21 07:45 Comment 02/08/21 01:05 Data Completed and Pending Labs on day of discharge: Labs from last 24 hours 02/09/21 02/09/21 02/08/21 09:34 07:06 03:13 WBC 14.90 H RBC 3.83 L Hgb 11.7 Hct 35.4 L MCV 92.4 MCH 30.5 MCHC 33.1 RDW 14.3 Plt Count 296 MPV 10.9 Antigen Identification Cancelled Screen Pending Unit Expiration Date 08/20/22 Product Lot # [id number]
== END 2021-02-09 14:10 | disposition home or self-care (01) | DRG 807 ==
PROVIDERS: Admitting Provider Advanced Practice Midwife; PCP Nurse Practitioner; Visit Provider Advanced Practice Midwife
DX: O48.0 Post-term pregnancy (principal); Z37.0 Single live birth; Z3A.41 41 weeks gestation of pregnancy; Z20.822 Contact with and (suspected) exposure to COVID-19
CPT/HCPCS: 36415; 85027; 85461; 86850; 86900; 86901; 87635; 90384; 86870; 86902; J2590; J2790

== ENCOUNTER 2022-01-24 03:18 | Outpatient (CLI) | payer MEDICAID, SELFPAY ==
[2022-01-24 12:11] LABS: Abs Immature Grans 0.02 10^3/uL (0.0-0.06); Absolute Basophil Count 0.02 10^3/uL (0.0-0.2); Absolute Eosinophil Count 0.27 10^3/uL (0.0-0.7); Absolute Lymphocyte Count 2.41 10^3/uL (1.2-3.4); Absolute Monocyte Count 0.57 10^3/uL (0.1-0.8); Absolute Neutrophil Count 6.68 10^3/uL (1.2-6.7); Basophils % 0.2; Eosinophils % 2.7; HCT 35.7 % (36.0-46.0); HGB 12.1 g/dL (11.2-15.7); Immature Grans % 0.2; Lymphocytes % 24.2; MCH 29.4 pg (27.0-33.0); MCHC 33.9 % (32.0-36.0); MCV 87 fL (80-95); MPV 10.6 fL (8.0-11.0); Monocytes % 5.7; Platelet Count 317 10^3/uL (130-400); RBC 4.12 10^6/uL (3.93-5.22); RDW 13.4 % (11.7-14.6); RDW-SD 42.2 fL; WBC 9.97 10^3/uL (4.4-10.8)
[2022-01-24 13:07] LABS: TSH (W/Ref FT4) 0.04 uIU/mL (0.36-3.74)
[2022-01-24 13:42] LABS: FREE T4 1.04 ng/dL (0.76-1.46)
[2022-01-24 14:09] LABS: *AMPHETAMINES SCREEN URINE Negative (Negative); *BARBITURATES SCREEN URINE Negative (Negative); *BENZODIAZEPINES SCREEN URINE Negative (Negative); Cannabinoids THC Negative (Negative); Cocaine Screen,Urine Negative (Negative); METHADONE URINE SCREEN Negative (Negative); OPIATES URINE SCREEN Negative (Negative)
[2022-01-24 14:10] LABS: Tricyclic Antidepressants Negative (Negative)
[2022-01-25 20:06] LABS: Hepatitis B Surface Ag Negative (Negative)
[2022-01-25 20:43] LABS: Hepatitis C Ab w Rflx HCV PCR Negative (Negative)
[2022-01-25 20:50] LABS: HIV-1/2 Ag & Ab Screen Negative (Negative)
[2022-01-26 11:19] LABS: Rubella IgG Ab (UVM) Positive (See Note); Varicella IgG Antibody Negative (See Note)
[2022-01-27 14:30] LABS: Syphilis IgG w/Reflex Nonreactive (Nonreactive)
[2022-01-29 12:54] LABS: Buprenorphine Negative ng/mL (Cutoff: 5.0); Norbuprenorphine Negative ng/mL (Cutoff: 2.5)
== END 2022-01-24 03:19 | disposition home or self-care (01) ==
LOC: LBO 03:19
PROVIDERS: PCP Nurse Practitioner; Visit Provider Advanced Practice Midwife
DX: Z34.91 Encounter for supervision of normal pregnancy, unspecified, first trimester (principal); Z3A.13 13 weeks gestation of pregnancy; Z86.39 Personal history of other endocrine, nutritional and metabolic disease
CPT/HCPCS: 36415; 80307; 80348; 86787; 86803; 86850; 86900; 86901; 87340; 87389; 84439; 84443; 85025; 86762; 86780; 87086

== ENCOUNTER 2022-02-21 02:56 | Outpatient (CLI) | payer MEDICAID, SELFPAY ==
[2022-02-21 15:03] LABS: Panorama Kit Sent via Fed Ex
[2022-02-21 16:13] LABS: TSH (W/Ref FT4) 0.47 uIU/mL (0.36-3.74)
[2022-02-22 13:44] LABS: AFP 66.5 ng/mL; Calculated age at EDD 30 years; Cigarette smoking status non-Smoker; GA used in risk estimate Dates estimate; IVF Pregnancy No; Initial or repeat testing Initial testing; Insulin dependent diabetes No; Maternal Weight 173 lbs; Number of Fetuses 1; Physician Phone Number 802-748-7300; Prev Pregnancy w/NTD No; RECOMMENDED FOLLOW UP None.; Results Summary Normal risk
== END 2022-02-21 02:57 | disposition home or self-care (01) ==
LOC: LBO 02:56
PROVIDERS: Advanced Practice Midwife; PCP Nurse Practitioner Family; Visit Provider Advanced Practice Midwife
DX: O99.282 Endocrine, nutritional and metabolic diseases complicating pregnancy, second trimester (principal); O99.212 Obesity complicating pregnancy, second trimester; Z3A.17 17 weeks gestation of pregnancy
CPT/HCPCS: 36415; 82105; 84443; 87086

== ENCOUNTER → 2022-03-15 01:16 | Outpatient (CLI) | payer MEDICAID, SELFPAY ==
--- NOTE | 2022-03-15 07:00 | DI.US_ITS ---
Exam(s) US OB 2-3 TRIMESTER EXAM: US OB 2-3 TRIMESTER CLINICAL HISTORY: ,Z34.90. TECHNIQUE: Transabdominal obstetrical ultrasound was performed. COMPARISON: No exams were available for comparison FINDINGS: There is a single viable intrauterine gestation with cardiac activity identified-158 bpm. Amniotic fluid: There is a normal amount of amniotic fluid. Placental location: The placenta is anterior grade 1,with no evidence of placenta previa.Distance fro m the tip of the placenta to the internal cervical os is 4.9 cm. ANATOMY: A 3 vessel umbilical cord is seen. A four-chamber cardiac view was obtained. Right and left ventricular outflow tracts were imaged. There are no obvious abnormalities of the spinal column evident. There is no obvious abnormal ity of the anterior abdominal wall. stomach and urinary bladder are identified and there is no evidence of hydronephrosis. No abnormalities of the upper lip region are identified. No evidence of choroid plexus cysts i n the brain. Dating parameters place this at approximately 20 weeks and 2 days gestational age. BPD measures 19 weeks and 3 days HC measures 20 weeks and 4 days AC measures 20 weeks and 5 days FL measures 20 weeks and 4 days Estimated weight is 365 gm - Fetus is at the 47th percentile on the Hadlock scale. IMPRESSION:: Single viable intrauterine gestation which is approximately 20 weeks and 2 days gestati onal age, implying an SADA of July 31, 2022.. There are no obvious anomalies evident on today's study. The placenta is anterior with no evidence of placenta previa. There is a normal amount of amniotic fluid. DATA REPOSITORY:
== END ==
PROVIDERS: PCP Nurse Practitioner Family; Visit Provider Advanced Practice Midwife
DX: Z34.92 Encounter for supervision of normal pregnancy, unspecified, second trimester (principal)
CPT/HCPCS: 76805

== ENCOUNTER 2022-03-25 15:21 | Outpatient (REF) | payer MEDICAID, SELFPAY ==
[2022-03-27 12:38] LABS: Chlamydia Result Negative (Negative); GC Result Negative (Negative)
== END 2022-03-25 15:22 | disposition home or self-care (01) ==
LOC: LBN 15:21
PROVIDERS: PCP Nurse Practitioner Family; Visit Provider Advanced Practice Midwife
DX: Z34.92 Encounter for supervision of normal pregnancy, unspecified, second trimester (principal)
CPT/HCPCS: 87491; 87591

== ENCOUNTER 2022-05-09 01:53 | Outpatient (CLI) | payer MEDICAID, SELFPAY ==
[2022-05-09 13:44] LABS: HCT 36.7 % (36.0-46.0); HGB 12.2 g/dL (11.2-15.7); MCH 29.8 pg (27.0-33.0); MCHC 33.2 % (32.0-36.0); MCV 90 fL (80-95); MPV 10.1 fL (8.0-11.0); Platelet Count 279 10^3/uL (130-400); RDW 13.8 % (11.7-14.6); RDW-SD 45.1 fL; WBC 11.38 10^3/uL (4.4-10.8)
== END 2022-05-09 01:54 | disposition home or self-care (01) ==
LOC: LBO 01:53
PROVIDERS: PCP Nurse Practitioner Family; Visit Provider Advanced Practice Midwife
DX: O36.0130 Maternal care for anti-D [Rh] antibodies, third trimester, not applicable or unspecified (principal); Z67.91 Unspecified blood type, Rh negative; Z3A.28 28 weeks gestation of pregnancy
CPT/HCPCS: 36415; 85027; 86850; 86900; 86901; 90384

== ENCOUNTER 2022-06-11 13:23 | Observation (INO) | payer MEDICAID, SELFPAY ==
--- NOTE | 2022-06-11 | DI.US_ITS ---
Exam(s) US ABDOMEN LIMITED EXAM: US ABDOMEN LIMITED CLINICAL HISTORY: RLQ pain TECHNIQUE: Limited right lower quadrant ultrasound was performed. COMPARISON: US US ABDOMEN from 07/21/2020 FINDINGS: A 13 mm under structure is identified in the right lower quadrant. (Series 2, image 170). This stru cture appears blind ending. No color images were provided and no measurements were obtained. Only 1 longitudinal view of the structure is obtained. No right lower quadrant abscess is identified. IMPRESSION: Limited examination of the right lower quadrant reveals a single image which shows a suspicious blind -ending tube which may represent the appendix. Possible acute appendicitis. No abscess is identifie d in the right lower quadrant. An MRI of the pelvis should be considered for further evaluation. DATA REPOSITORY:
[2022-06-11 12:56] VITALS: BP 118/70; PULSE 93; TEMP 37.4
--- NOTE | 2022-06-11 13:26 | W.POCUS ---
Pocus Exam Limited OB Exam DATE OF EXAM:: 06/11/22 TIME OF EXAM:: 13:27 PROVIDER THAT PERFORMED THE STUDY: Stefani Blake IS THIS A REPEAT EXAM DURING THIS ENCOUNTER: No Type of Exam: Pelvic OB Trans Abdominal REASON FOR EXAM: Abdominal Pain Exam Complete. DIFFERENTAL DIAGNOSES: presentation: breech, with back on maternal right side
--- NOTE | 2022-06-11 13:28 | HPE_ITS ---
Date of service: 06/11/22 Time of Service: 13:29 Assessment and Plan Assessment and plan (1) Abdominal pain, RUQ: Status: Acute Assessment and plan: A: 31 yo @ 33 wks, not in labor Category 1 tracing, breech presentation, frequent mild contrx Normotensive, UA is neg, low grade temp noted RUQ and right side pain of uncertain etiology s/p cholecystectomy r/o pancreatitis, liver involvement, GI distress, appendicitis. P: presentation determined by POCUS scan CMP, CBC, amylase, lipase pending, fFN pending PO hydration, clear liquids at this time Dr. Salas available for consultation (2) Breech presentation: Status: Acute (3) 33 weeks gestation of : Status: Acute (4) Premature uterine contractions: Status: Acute OB-HPI Labor/Delivery History of Present Illness Reason for Visit: NST Chief Complaint: Maternal Discomfort , Associated Signs and Symptoms of Maternal Discomfort: sudden onset RUQ pain with nausea at 1000. No vomiting, no bleeding, no ROM, FM appreciated by pt, reports feeling very thirsty, states she doesn;t think she is in labor or having contractions other then .. SADA Calculator Estimated Delivery Date Method Current WG Current Estimate 07/29/22 LMP (Certain) 33w 1d Other Estimates 07/31/22 Ultrasound #1 32w 6d History of Present Expected Delivery Route/Plan - CNM ? FOB/ - Fabricio Hoover BB yes to circ Hopes for tub Specific Issues/Plan 1. Unvaccinated against Covid- declines vaccine 2. Prev macrosomia and BMI @ 31; declines early glucola- will test QID x 2 weeks. 3. RH neg - Received rhogam at 28 weeks 4. Hx of low TSH during - TSH with reflex drawn 01/24 TSH-0.04/T4-1.04,repeat thyroid testing every trimester___ 5. Family history preeclampsia and BMI 31 - offer low dose ASA- declines. 6. Rubella non-immune - offer vaccine post 7. Panorama: low risk x5 male, Second trimester AFP - WNL 8. Declines GTT, will test QID x 2 weeks. Assessment: History Reviewed & Current Review of Systems Narrative: ROS completed and found to be noncontributory other then HPI PFSH All Active Problems (Updated 06/11/22 @ 13:39 by Stefani Blake) Premature uterine contractions (Acute) 33 weeks gestation of (Acute) Breech presentation (Acute) Abdominal pain, RUQ (Acute) History of macrosomia in infant in prior , currently (Acute) Maternal varicella, non-immune (Acute) BMI 31.0-31.9,adult (Acute) (Acute) Rh negative state in antepartum period (Acute) Medical History (Updated 06/11/22 @ 13:39 by Stefani Blake) Biliary colic Family history of hypothyroidism Ingrown left big toenail Ingrown nail of great toe of right foot Leukocytosis Low TSH level resolved on repeat TSH (during ) Missed menses Surgical History (Updated 02/09/21 @ 14:53 by Mirella Brock LPN) Hx of cholecystectomy [place] teeth removed Family History (Updated 01/24/22 @ 11:29 by Irina Powers CNM) Mother Thyroid disorder hypothyroid History of hysterectomy for benign disease fibroids Hx laparoscopic cholecystectomy Preeclampsia Gallbladder disease Sister Raynaud's disease Thyroid disorder hypothyroid, biopsy taken Preeclampsia Maternal Grandmother Hypertension Parkinson's disease Maternal Grandfather Hypertension Myocardial infarction Paternal Grandmother Diabetes Hypertension Breast cancer Paternal Grandfather Hx of cholecystectomy Brother Liver disease Father Gallbladder disease Sister No problems noted. Sister No problems noted. Brother No problems noted. Brother Hypothyroid Sister No problems noted. Daughter No problems noted. Social History (Updated 07/26/21 @ 11:22 by Deja Diaz) Smoking/Tobacco Use Status: Never Second Hand Exposure: Yes Smoking risk assessment performed?: Yes Alcohol Intake: current Alcohol Intake frequency: holidays/special occasions only Details: social, 1x/mos. w/o use w/ knowledge of . Drug use: Never Substance use type: does not use Adopted: No Caregiver/Support person: No Foster care: No Household members: spouse and children Housing: house Number of Children: 0 Communication Needs: Corrective Lenses Do you need help understanding health information?: Never current occupation: nurse [employer]. Pets and animals: Yes Pets and animals: dog(s) Sexually active: Yes Current gender identity: female What is your relationship status?: How often do you talk on the phone with friends or family?: three or more times per week Do you belong to any clubs or organized social groups?: yes Panel score (0-1 are the most socially isolated patients): 3 What type of physical activity do you participate in: walking, weight lifting and other Sadaf/Jehovah'S Witness: Other Special sadaf needs: No Agree to transfusion: Yes Seatbelt use: always Helmet use: Yes (not w/ bicycle, enc. to use at all times.) Helmet use: sometimes Drive intox or ride w/intox entry level truck driver: No Water heater temp set <120 deg: No (unknown, will check.) Working smoke detector in home: Yes Fire extinguisher in home: Yes Carbon monox detector in home: Yes Firearms in home: Yes (yes,) Do you feel safe at home: Yes Do you feel safe in your relationship?: Yes Victim of physical abuse: No Victim of emotional abuse: No Victim of sexual abuse: No Female Reproductive History Menstrual Age of Menarche: 13 Duration of menses: 3-5 days control method: none History History 4 Para 3 Hx # Term Pregnancies 3 Multiple births 0 Hx # Pregnancies 0 Ectopic pregnancies 0 AB induced 0 Hx Number of Living Children 3 AB spontaneous 0 Past Pregnancies Del. Date GA/Weeks # Preg Succ Route Wgt Sex Labor Lgth Anesth esia Location Prov Compl 09/14/18 41 No vaginal 9 lb 3 oz Female ashley Carr CNM 11/07/19 39 No vaginal 8 lb 9 oz Male 24 hours [facility] Froylan Powers CNM 02/08/21 41 No Yes vaginal 8 lb 12.03 oz Female 8 hours MICHLEL Hollingsworth Delivery Date: 09/14/18 Last Updated by: Yana Blake IOL for postdates and PROM, prolonged labor> 20 hrs, pit aug, epidural Delivery Date: 11/07/19 Last Updated by: Yana Blake IOL for unstable lie, epidural, had decreased FHT with bright red bleeding right before delivery, tight nuchal cord, first degree Delivery Date: 02/08/21 Last Updated by: Irina Powers CNM Spontaneous labor, Tub . Meds Allergies and Home Medications Allergies Allergy/AdvReac Type Severity Reaction Status Date / Time house dust Allergy Mild Verified 06/06/22 14:50 jaison Allergy Hives Verified 06/06/22 14:50 soap Allergy Blisters Verified 06/06/22 14:50 on hands pollen Allergy Intermediate Uncoded 06/06/22 14:50 Home Medications Medication Instructions Recorded Confirmed Type prenat.vits,jil,rvh-rdtd-ycjed 1 tab PO DAILY 02/05/18 06/06/22 History magnesium 250 mg tablet 250 mg PO DAILY PRN 09/28/18 06/06/22 History cholecalciferol (vitamin D3) 100 1,000 unit PO PRN 07/26/19 06/06/22 History mcg (4,000 unit) capsule sennosides 8.6 mg-docusate sodium 1 tab-cap PO .COMPLEX PRN 10/28/19 06/06/22 History 50 mg capsule (Senna Plus) ascorbate calcium (vitamin C) 500 1 g PO DAILY PRN 01/25/21 06/06/22 History mg tablet loratadine 10 mg tablet 10 mg PO DAILY 03/23/21 06/06/22 History blood sugar diagnostic (FreeStyle #100 ea 02/14/22 06/06/22 Rx Lite Strips) lancets 28 gauge (FreeStyle #100 ea 02/14/22 06/06/22 Rx Lancets) Exam Physical Exam Vital signs: BP-118/70, P-93, T-37.4 Vital Signs Reviewed: Yes Narrative: Low grade maternal temp noted (axillary) Constitutional Constitutional: mild distress and average body habitus Detailed Labor and Delivery Exam Dilation: 0 Effacement (%): 0 Cervix position: posterior Consistency: firm Amniotic Membrane Status: Intact Contraction Frequency(min): 2-3 Contraction Duration(sec): 60 Contraction Intensity: Mild Comments: Speculum exam performed, fFN, GBS and VPS collected Vaginal mucous appears cream colored, SVE closed/thick, posterior, PPOOP, intact membranes Fetus A Heart Rate Baseline: 150 Monitor Accelerations: 15 X 15 Monitor Decelerations: None Variability: Moderate (6-25 BPM) Categories: Category I Assessment Note: 33+1 wks, breech presentation on ultrasound bedside (POCUS) HEENT Exam HEENT Exam: Normal Neck Exam Neck Exam: Normal Chest/Brest/Axilla Exam Chest Exam: Normal Breast Exam Breast Exam: Not Done Respiratory Exam Respiratory Exam: Normal Cardiovascular Exam Cardiovascular Exam: Normal Abdominal Exam Abdominal Exam: Abnormal (gravid, uterus is soft to palpation, RUQ tender, +rebound) Rectal Exam Rectal Exam: Normal Exam Exam: Normal Extremities Exam Extremities Exam: Normal Back/Spine/Pelvis Exam Back Exam: Normal (negative CVAT) Pelvis Adequate: Yes (pelvis proven to ) Skin Exam Skin Exam: Normal Neurological Exam Neurological Exam: Normal Psychiatric Exam Psychiatric Exam: Normal Results Results Group Beta Strep: Done-Result Unknown Blood Type: O- Rubella Status: Immune Varicella Immunity: Nonimmune Risk Assessment Risk for Shoulder Dystocia Historical/Initial OB: POSITIVE FOR: Pre- BMI>30 and Previous Macrosomia; NEGATIVE FOR: Pelvic Abnormality or Previous Shoulder Dystocia Increased Risk?: No Counseling: proven to Risk for Pre-Eclampsia Date Initiated/Initials: pt advised, she declines at this time 07/13. Yes, if one or more: NEGATIVE FOR: Hx Pre-E/Gest HTN, Chronic HTN, Multiple Gestation, Pre-gestational DM, Renal Disease, Systemic Lupus or APA Syndrome Yes, if 2 or more: POSITIVE FOR: BMI>30 and Mother/Sister w/ Pre-E; NEGATIVE FOR: Nulliparity, Age>= 35 yrs, >10yr btwn pregnancies, ethinicty or Previous IUGR Risk for Post- Hemorrhage Initial: NEGATIVE FOR: Multiple Gestation, Previous PPH, Known Clotting Deficiency, Grand Multiparity or Anticoagulation Risks Reviewed Risks Reviewed Upon Admission: Yes
[2022-06-11 13:43] LABS: Abs Immature Grans 0.21 10^3/uL (0.0-0.06); Absolute Neutrophil Count 21.19 10^3/uL (1.2-6.7); Basophils % 0.3; Eosinophils % 0.2; HCT 36.8 % (36.0-46.0); HGB 12.3 g/dL (11.2-15.7); Immature Grans % 0.9; Lymphocytes % 3.9; MCH 29.9 pg (27.0-33.0); MCHC 33.4 % (32.0-36.0); MCV 89 fL (80-95); MPV 10.8 fL (8.0-11.0); Monocytes % 3.9; Neutrophils % 90.8; Platelet Count 246 10^3/uL (130-400); RBC 4.12 10^6/uL (3.93-5.22); RDW-SD 45.2 fL; WBC 23.34 10^3/uL (4.4-10.8)
[2022-06-11 13:45] LABS: Absolute Basophil Count 0.07 10^3/uL (0.0-0.2); Absolute Eosinophil Count 0.05 10^3/uL (0.0-0.7); Absolute Lymphocyte Count 0.91 10^3/uL (1.2-3.4); Absolute Monocyte Count 0.91 10^3/uL (0.1-0.8)
[2022-06-11 14:03] LABS: ALT 13 U/L (14-59); AST 11 U/L (15-37); Albumin 2.7 g/dL (3.4-5.0); Alkaline Phosphatase 149 U/L (46-116); Amylase 61 U/L (25-115); Anion Gap 7.9 mmol/L (3-11); BUN 7 mg/dL (7-18); Bilirubin, Total 0.3 mg/dL (0.2-1.0); CO2 25.1 mmol/L (21.0-32.0); CREATININE 0.7 mg/dL (0.55-1.02); Calcium 9.2 mg/dL (8.5-10.1); Chloride 102 mmol/L (98-107); Estimated GFR 119.24 (mL/min/1.73m2); Glucose 121 mg/dL (74-106); Lipase 37 U/L (16-77); Potassium 3.3 mmol/L (3.5-5.1); Sodium 135 mmol/L (136-145); Total Protein 6.8 g/dL (6.4-8.2)
[2022-06-11 14:14] LABS: Diff Comment Diff Reviewed; RBC Morphology Normal
[2022-06-11 14:46] LABS: Fetal Fibronectin Negative (Negative)
--- NOTE | 2022-06-11 14:48 | OBCE_ITS ---
Date of service: 06/11/22 Time of Service: 14:48 Assessment and Plan Assessment and plan (1) 33 weeks gestation of : Status: Acute (2) Right lower quadrant pain: Status: Acute Assessment and plan: Concern for acute appendicitis. I have contacted the general surgeon on-call regarding assistance with management of this patient. Ultrasound of the right upper quadrant has been ordered and will be performed. History of Present Illness History of Present Illness Chief Complaint: RLQ pain Narrative: Patient is a 3 4 para 3 female currently 31 3W1D EGA who awoke this morning with right lower quadrant pain developed nausea and presented to the center. She is a patient of the CN service who has had an unremarkable course. Laboratory examination and physical exam are strongly suggestive acute appendicitis. Consults Consult date: 06/11/22 Requesting physician: Stefani Blake Review of Systems All systems reviewed & are unremarkable except as noted in HPI and below Cardiovascular Cardiovascular: Reports system reviewed and no additional complaints, except as documented, Denies claudication and Denies dyspnea Respiratory Respiratory: Reports system reviewed and no additional complaints, except as documented and Denies dyspnea Gastrointestinal Gastrointestinal: Reports abdominal pain (Right lower quadrant pain slightly higher than McBurney's point), Denies change in bowel habits, Denies change in stool character, Denies diarrhea, Reports nausea and Denies vomiting Genitourinary Genitourinary: Denies abnormal vaginal bleeding, Denies dysuria, Denies vaginal discharge and Reports other (Patient reports uterine tightening.) Musculoskeletal Musculoskeletal: Denies abnormal gait, Denies back pain and Denies arthralgias Integumentary/Breasts Skin/Breast: Reports system reviewed and no additional complaints, except as documented Neurologic Neurologic: Reports system reviewed and no additional complaints, except as documented and Denies abnormal gait Psychiatric Psychiatric: Reports system reviewed and no additional complaints, except as documented PFSH All Active Problems (Updated 06/11/22 @ 14:57 by Saba Salas MD) Right lower quadrant pain (Acute) Premature uterine contractions (Acute) 33 weeks gestation of (Acute) Breech presentation (Acute) Abdominal pain, RUQ (Acute) History of macrosomia in in prior , currently (Acute) Maternal varicella, non-immune (Acute) BMI 31.0-31.9,adult (Acute) (Acute) Rh negative state in antepartum period (Acute) Medical History (Updated 06/11/22 @ 14:57 by Saba Salas MD) Biliary colic Family history of hypothyroidism Ingrown left big toenail Ingrown nail of great toe of right foot Leukocytosis Low TSH level resolved on repeat TSH (during ) Missed menses Surgical History (Updated 02/09/21 @ 14:53 by Mirella Brock LPN) Hx of cholecystectomy [place] teeth removed Family History (Updated 01/24/22 @ 11:29 by Irina Powers CNM) Mother Thyroid disorder hypothyroid History of hysterectomy for benign disease fibroids Hx laparoscopic cholecystectomy Preeclampsia Gallbladder disease Sister Raynaud's disease Thyroid disorder hypothyroid, biopsy taken Preeclampsia Maternal Grandmother Hypertension Parkinson's disease Maternal Grandfather Hypertension Myocardial infarction Paternal Grandmother Diabetes Hypertension Breast cancer Paternal Grandfather Hx of cholecystectomy Brother Liver disease Father Gallbladder disease Sister No problems noted. Sister No problems noted. Brother No problems noted. Brother Hypothyroid Sister No problems noted. Daughter No problems noted. Social History (Updated 07/26/21 @ 11:22 by Deja Diaz) Smoking/Tobacco Use Status: Never Second Hand Exposure: Yes Smoking risk assessment performed?: Yes Alcohol Intake: current Alcohol Intake frequency: holidays/special occasions only Details: social, 1x/mos. w/o use w/ knowledge of . Drug use: Never Substance use type: does not use Adopted: No Caregiver/Support person: No Foster care: No Household members: spouse and children Housing: house Number of Children: 0 Communication Needs: Corrective Lenses Do you need help understanding health information?: Never current occupation: nurse [employer]. Pets and animals: Yes Pets and animals: dog(s) Sexually active: Yes Current gender identity: female What is your relationship status?: How often do you talk on the phone with friends or family?: three or more times per week Do you belong to any clubs or organized social groups?: yes Panel score (0-1 are the most socially isolated patients): 3 What type of physical activity do you participate in: walking, weight lifting and other Sadaf/Orthodoxy: Other Special sadaf needs: No Agree to transfusion: Yes Seatbelt use: always Helmet use: Yes (not w/ bicycle, enc. to use at all times.) Helmet use: sometimes Drive intox or ride w/intox driver trainee: No Water heater temp set <120 deg: No (unknown, will check.) Working smoke detector in home: Yes Fire extinguisher in home: Yes Carbon monox detector in home: Yes Firearms in home: Yes (yes,) Do you feel safe at home: Yes Do you feel safe in your relationship?: Yes Victim of physical abuse: No Victim of emotional abuse: No Victim of sexual abuse: No Female Reproductive History Menstrual Age of Menarche: 13 Duration of menses: 3-5 days control method: none History History 4 Para 3 Hx # Term Pregnancies 3 Multiple births 0 Hx # Pregnancies 0 Ectopic pregnancies 0 AB induced 0 Hx Number of Living Children 3 AB spontaneous 0 Past Pregnancies Del. Date GA/Weeks # Preg Succ Route Wgt Sex Labor Lgth Anesth esia Location Prov Complic 09/14/18 41 No vaginal 9 lb 3 oz Female ashley Carr CNM 11/07/19 39 No vaginal 8 lb 9 oz Male 24 hours [facility] Froylan Powers CNM 02/08/21 41 No Yes vaginal 8 lb 12.03 oz Female 8 hours [facility] Delivery Date: 09/14/18 Last Updated by: Yana Blake IOL for postdates and PROM, prolonged labor> 20 hrs, pit aug, epidural Delivery Date: 11/07/19 Last Updated by: Yana Blake IOL for unstable lie, epidural, had decreased FHT with bright red bleeding right before delivery, tight nuchal cord, first degree Delivery Date: 02/08/21 Last Updated by: Irina Powers CNM Spontaneous labor, Tub . Exam Const General: well developed Nutritional Appearance: average body habitus Orientation: alert, awake and oriented x3 Resp Effort & Inspection: normal respiratory effort Auscultation: clear to auscultation bilaterally Cardio Rate: regular rate Rhythm: regular rhythm GI Inspection: normal to inspection (Gravid) Palpation: guarding in the RLQ and tender at McBurney's point and Rovsing's sign positive Auscultation: normal bowel sounds General: deferred (SVE performed by MICHELL on arrival. Cervix closed long) Other: heart rate 150 range category 1 tracing Back/Spine/Pelvis Back: no CVA tenderness Skin General skin exam: no rashes or lesions noted Neuro Cognition: normal cognition Speech: speech normal Gait: normal gait Motor: muscle tone normal throughout Extrem General: normal to inspection Psych Appearance: grossly normal Mental Status: mental status grossly normal Speech and Movement: speech and movement normal Mood: congruent mood Affect: normal affect Attitude: cooperative Thought Process: normal Thought Content: normal Insight: fair Results Labs 06/11/22 13:37 06/11/22 13:37 Labs: Laboratory Results - last 24 hr 06/11/22 06/11/22 06/11/22 13:37 13:37 13:37 WBC 23.34 H RBC 4.12 Hgb 12.3 Hct 36.8 MCV 89 MCH 29.9 MCHC 33.4 RDW 14.0 Plt Count 246 MPV 10.8 Immature Gran % 0.9 Neutrophils % 90.8 Lymphocytes % 3.9 Monocytes % 3.9 Eosinophils % 0.2 Basophils % 0.3 Nucleated RBC % 0.0 Absolute Neutrophils 21.19 H Absolute Lymphocytes 0.91 L Absolute Monocytes 0.91 H Absolute Eosinophils 0.05 Absolute Basophils 0.07 RBC Morphology Normal Sodium 135 L Potassium 3.3 L Chloride 102 Carbon Dioxide 25.1 Anion Gap 7.9 BUN 7 Creatinine 0.7 Est GFR (CKD-EPI 2020) 119.24 Glucose 121 H Calcium 9.2 Total Bilirubin 0.3 AST 11 L ALT 13 L Alkaline Phosphatase 149 H Total Protein 6.8 Albumin 2.7 L Amylase 61 Cancelled Lipase 37 Cancelled Fibronectin 06/11/22 13:50 WBC RBC Hgb Hct MCV MCH MCHC RDW Plt Count MPV Immature Gran % Neutrophils % Lymphocytes % Monocytes % Eosinophils % Basophils % Nucleated RBC % Absolute Neutrophils Absolute Lymphocytes Absolute Monocytes Absolute Eosinophils Absolute Basophils RBC Morphology Sodium Potassium Chloride Carbon Dioxide Anion Gap BUN Creatinine Est GFR (CKD-EPI 2020) Glucose Calcium Total Bilirubin AST ALT Alkaline Phosphatase Total Protein Albumin Amylase Lipase Fibronectin Negative
[2022-06-11 15:02] VITALS: BP 118/70; PULSE 93; TEMP 37.4
--- NOTE | 2022-06-11 15:02 | W.OBNST ---
Date of service: 06/11/22 Time of Service: 15:02 NST Evaluation Reason for NST Reasons for Nonstress Test: OTHER, SEE COMMENT Reason for NST Other: right sided pain Gestational Age Gestational Age in Weeks and Days: 33 Weeks and 1Days Test and Monitor Explained Test/Monitor Explained: Test Explained, Monitor Explained and Patient Verbalized Understanding Vital Signs Blood Pressure: 118/70 Pulse: 93 Temperature: 99.3 F Urine Results Urine Protein: Positive (trace) Urine Ketones: Positive (trace) Urine Glucose: Negative Urine Blood: Negative NST Information Date on Monitor: 06/11/22 Time on Monitor: 13:15 Date off Monitor: 06/11/22 Time off Monitor: 14:58 Total Time on Monitor: 103 NST Interventions: PO Hydration Contraction Frequency: 2-3 NST Evaluation Patient States Movement: Present FHR Baseline: 150 Variability: Moderate 6-25 bpm Accelerations: 15x15 Decelerations: None NST Results: Reactive Note Presentation Presentation Results: breech presentation with back on maternal right Coding for Presentation w/NST: Completed Exam NST Note NST Reviewed and Verified by: Stefani Blake
--- NOTE | 2022-06-11 16:01 | SCONE_ITS ---
Date of service: 06/11/22 Time of Service: 16:01 Assessment and Plan Assessment and plan (1) Right lower quadrant pain: Status: Acute Assessment and plan: Based on the history and physical exam, this seems most consistent with acute appendicitis. Unfortunately, the ultrasound today could not support or refute that diagnosis. MRI is not available. We talked for a little bit about the utility of CAT scan as a diagnostic test. It has excellent sensitivity and specificity, but with a high pretest probability (based on physical exam, and otherwise unexplained leukocytosis), I would prefer to minimize exposure. I do recommend laparoscopic appendectomy, which I think is a reasonable approach at 34 weeks, especially in a patient who is only had one other laparoscopic operation. After consultation with anesthesia specialist, however, I agree it would be reasonable to attempt transfer to a center that would be better capable of supporting a at this gestational stage should any complications develop. Obviously, I am available anytime if the situation becomes more urgent. In the meantime, I would start broad-spectrum antibiotics such as Zosyn or Unasyn for early treatment of appendicitis History of Present Illness History of Present Illness Chief Complaint: Right-sided flank pain Narrative: Gila is a 31-year-old woman who is 34 weeks . She noticed the cute onset of right-sided abdominal pain today. It happened first thing this morning. It was associated with some mild nausea, but she did not vomit. The pain increased in intensity. She describes it as sharp and stabbing. She was found to have a leukocytosis in excess of 20,000. I was asked to see her in consideration for acute appendicitis. PFSH All Active Problems Right lower quadrant pain (Acute) Premature uterine contractions (Acute) 33 weeks gestation of (Acute) Breech presentation (Acute) Abdominal pain, RUQ (Acute) History of macrosomia in in prior , currently (Acute) Maternal varicella, non-immune (Acute) BMI 31.0-31.9,adult (Acute) (Acute) Rh negative state in antepartum period (Acute) Medical History Biliary colic Family history of hypothyroidism Ingrown left big toenail Ingrown nail of great toe of right foot Leukocytosis Low TSH level resolved on repeat TSH (during ) Missed menses Surgical History Hx of cholecystectomy [place] teeth removed Family History Mother Thyroid disorder hypothyroid History of hysterectomy for benign disease fibroids Hx laparoscopic cholecystectomy Preeclampsia Gallbladder disease Sister Raynaud's disease Thyroid disorder hypothyroid, biopsy taken Preeclampsia Maternal Grandmother Hypertension Parkinson's disease Maternal Grandfather Hypertension Myocardial infarction Paternal Grandmother Diabetes Hypertension Breast cancer Paternal Grandfather Hx of cholecystectomy Brother Liver disease Father Gallbladder disease Sister No problems noted. Sister No problems noted. Brother No problems noted. Brother Hypothyroid Sister No problems noted. Daughter No problems noted. Social History Smoking/Tobacco Use Status: Never Second Hand Exposure: Yes Smoking risk assessment performed?: Yes Alcohol Intake: current Alcohol Intake frequency: holidays/special occasions only Details: social, 1x/mos. w/o use w/ knowledge of . Drug use: Never Substance use type: does not use Adopted: No Caregiver/Support person: No Foster care: No Household members: spouse and children Housing: house Number of Children: 0 Communication Needs: Corrective Lenses Do you need help understanding health information?: Never current occupation: nurse [employer]. Pets and animals: Yes Pets and animals: dog(s) Sexually active: Yes Current gender identity: female What is your relationship status?: How often do you talk on the phone with friends or family?: three or more times per week Do you belong to any clubs or organized social groups?: yes Panel score (0-1 are the most socially isolated patients): 3 What type of physical activity do you participate in: walking, weight lifting and other Sadaf/Temple: Other Special sadaf needs: No Agree to transfusion: Yes Seatbelt use: always Helmet use: Yes (not w/ bicycle, enc. to use at all times.) Helmet use: sometimes Drive intox or ride w/intox dedicated intermodal truck driver: No Water heater temp set <120 deg: No (unknown, will check.) Working smoke detector in home: Yes Fire extinguisher in home: Yes Carbon monox detector in home: Yes Firearms in home: Yes (yes,) Do you feel safe at home: Yes Do you feel safe in your relationship?: Yes Victim of physical abuse: No Victim of emotional abuse: No Victim of sexual abuse: No Female Reproductive History Menstrual Age of Menarche: 13 Duration of menses: 3-5 days control method: none History History 4 Para 3 Hx # Term Pregnancies 3 Multiple births 0 Hx # Pregnancies 0 Ectopic pregnancies 0 AB induced 0 Hx Number of Living Children 3 AB spontaneous 0 Past Pregnancies Del. Date GA/Weeks # Preg Succ Route Wgt Sex Labor Lgth Anesth esia Location Prov Complic 09/14/18 41 No vaginal 9 lb 3 oz Female [facility] Tripp Carr CNM 11/07/19 39 No vaginal 8 lb 9 oz Male 24 hours [facility] Froylan Powers CNM 02/08/21 41 No Yes vaginal 8 lb 12.03 oz Female 8 hours [facility] Delivery Date: 09/14/18 Last Updated by: Yana Blake IOL for postdates and PROM, prolonged labor> 20 hrs, pit aug, epidural Delivery Date: 11/07/19 Last Updated by: Yana Blake IOL for unstable lie, epidural, had decreased FHT with bright red bleeding right before delivery, tight nuchal cord, first degree Delivery Date: 02/08/21 Last Updated by: Irina Powers CNM Spontaneous labor, Tub . Exam GI Inspection: other (Gravid with palpable uterine fundus above the level of the umbilicus) Palpation: soft, no guarding, no hernias and tender (Right abdomen 1 handsbreadth above McBurney's point) Percussion: dullness to percussion Results Labs 06/11/22 13:37 06/11/22 13:37 Labs: Laboratory Results - last 24 hr 06/11/22 06/11/22 06/11/22 13:37 13:37 13:37 WBC 23.34 H RBC 4.12 Hgb 12.3 Hct 36.8 MCV 89 MCH 29.9 MCHC 33.4 RDW 14.0 Plt Count 246 MPV 10.8 Immature Gran % 0.9 Neutrophils % 90.8 Lymphocytes % 3.9 Monocytes % 3.9 Eosinophils % 0.2 Basophils % 0.3 Nucleated RBC % 0.0 Absolute Neutrophils 21.19 H Absolute Lymphocytes 0.91 L Absolute Monocytes 0.91 H Absolute Eosinophils 0.05 Absolute Basophils 0.07 RBC Morphology Normal Sodium 135 L Potassium 3.3 L Chloride 102 Carbon Dioxide 25.1 Anion Gap 7.9 BUN 7 Creatinine 0.7 Est GFR (CKD-EPI 2020) 119.24 Glucose 121 H Calcium 9.2 Total Bilirubin 0.3 AST 11 L ALT 13 L Alkaline Phosphatase 149 H Total Protein 6.8 Albumin 2.7 L Amylase 61 Cancelled Lipase 37 Cancelled Fibronectin 06/11/22 13:50 WBC RBC Hgb Hct MCV MCH MCHC RDW Plt Count MPV Immature Gran % Neutrophils % Lymphocytes % Monocytes % Eosinophils % Basophils % Nucleated RBC % Absolute Neutrophils Absolute Lymphocytes Absolute Monocytes Absolute Eosinophils Absolute Basophils RBC Morphology Sodium Potassium Chloride Carbon Dioxide Anion Gap BUN Creatinine Est GFR (CKD-EPI 2020) Glucose Calcium Total Bilirubin AST ALT Alkaline Phosphatase Total Protein Albumin Amylase Lipase Fibronectin Negative
[2022-06-11] MEDS: Betamet Acet/Betamet Na Ph Inj. 30 MG/5 ML 12 MG IM (16:37)
[2022-06-11] MEDS: Lactated Ringers 1,000 ML 125 ML IV (16:43)
--- NOTE | 2022-06-11 17:01 | DSE_ITS ---
Date of service: 06/11/22 Time of Service: 17:02 DS: Diagnosis Discharge Diagnosis (1) 33 weeks gestation of : Status: Acute Asessment and Plan: Currently not in active labor (2) Right lower quadrant pain: Status: Acute Asessment and Plan: Suspected appendicitis Discharge Plan Disposition Specific Acute Inpt Facility: [facility] Condition: Stable Condition: Stable Discharge Details Reason For Visit: Right lower quadrant pain Attending Provider: Stefani Blake Primary Care Provider: Yari Anaya Hospital Course Hospital Course: Patient is currently 33 weeks EGA who presented to the center with complaints of an acute episode of right lower quadrant pain beginning earlier in the day and was unremitting. Physical examination showed positive McBurney's point with the distribution being appropriate for her gestational age. Bedside ultrasound showed an appendix without evidence of inflammation. No evidence of pelvic free fluid mild right hydronephrosis. WBC 23.3 with a left shift. Afebrile with stable vital signs. Cervix long closed by CNM exam. Uterine irritability noted on external tocometer heart rate tracing category 1. General surgery consult was obtained and initially the plan was to have the patient have a laparoscopic appendectomy at [facility]. Further discussion was had with anesthesia providers who felt the patient would benefit from care in a tertiary center in the event of prematurity. Dr. Kelsey Merchant at [facility] accepted the patient transfer. She has received 12 mg of betamethasone IM and we are currently planning on administering Zosyn 3.75 mg prior to transfer. Patient and her have accepted transfer via ambulance Home Meds and New Rx's Prescriptions: No Action prenat.vits,jil,alx-zylu-bmtzj tablet 1 tab PO DAILY magnesium 250 mg tablet 250 mg PO DAILY PRN cholecalciferol (vitamin D3) 100 mcg (4,000 unit) capsule 1,000 unit PO PRN Senna Plus 8.6-50 mg capsule 1 tab-cap PO .COMPLEX PRN Rx Instructions: 1 tab-cap PO every other day; PRN; ascorbate calcium (vitamin C) 500 mg tablet 1 g PO DAILY PRN loratadine 10 mg tablet 10 mg PO DAILY (DME) lancets [FreeStyle Lancets] 28 gauge misc See Rx Instructions .Route Qty: 100 0RF Rx Instructions: 4 times daily (DME) FreeStyle Lite Strips Strip See Rx Instructions .Route Qty: 100 0RF Rx Instructions: 4 times daily Discharge Instructions Activity:: Activity as Tolerated Equipment/Supplies:: IV access for transport Diet:: Nothing by mouth Discharge Data Discharge Physician: Saba Salas DS: Summary Time Spent with Patient providing and/or coordinating discharge services: Greater than 30 minutes Status at Discharge Functional status at discharge: independent ambulation Overall status at discharge: other (Stable) Mental Status: mental status grossly normal Speech and Movement: speech and movement normal Mood: congruent mood Affect: normal affect Exam Narrative Exam Narrative: Since arrival on the center patient has been evaluated by general surgery has remained relatively comfortable and continues afebrile. She has consented to transfer [facility] for further evaluation. Const General: comfortable and no acute distress Nutritional Appearance: overweight Orientation: alert, awake and oriented x3 Neck Neck: normal visual inspection Thyroid: thyroid normal Resp Effort & Inspection: normal respiratory effort Auscultation: clear to auscultation bilaterally Cardio Rate: regular rate Rhythm: regular rhythm GI Inspection: normal to inspection (Abdominal diastases, abdominal u/s shows breech head maternal left) Palpation: soft and tender at McBurney's point and Rovsing's sign positive Percussion: normal to percussion Auscultation: normal bowel sounds Rectal Exam - female: deferred General: deferred Manual OB Exam: dilated fingertip, effaced 0%, station high and other (Presenting part breech) Back/Spine/Pelvis Back: no CVA tenderness Skin General skin exam: no rashes or lesions noted Neuro Cognition: normal cognition Speech: speech normal Extrem General: normal to inspection and full ROM Psych Appearance: grossly normal Mental Status: mental status grossly normal Speech and Movement: speech and movement normal Mood: congruent mood Affect: normal affect Attitude: cooperative Thought Process: normal Thought Content: normal Judgment: judgment good DS: Data Vitals/I&O Vitals and I&O: Intake & Output 06/10/22 06/11/22 06/11/22 23:59 11:59 23:59 Intake Total Balance Intake: IV Data Completed and Pending Labs on day of discharge: Labs from last 24 hours 06/11/22 06/11/22 06/11/22 13:50 13:37 13:37 WBC 23.34 H RBC 4.12 Hgb 12.3 Hct 36.8 MCV 89 MCH 29.9 MCHC 33.4 RDW 14.0 Plt Count 246 MPV 10.8 Immature Gran % 0.9 Neutrophils % 90.8 Lymphocytes % 3.9 Monocytes % 3.9 Eosinophils % 0.2 Basophils % 0.3 Nucleated RBC % 0.0 Absolute Neutrophils 21.19 H Absolute Lymphocytes 0.91 L Absolute Monocytes 0.91 H Absolute Eosinophils 0.05 Absolute Basophils 0.07 RBC Morphology Normal Sodium Potassium Chloride Carbon Dioxide Anion Gap BUN Creatinine Est GFR (CKD-EPI 2020) Glucose Calcium Total Bilirubin AST ALT Alkaline Phosphatase Total Protein Albumin Amylase Cancelled Lipase Cancelled Fibronectin Negative 06/11/22 13:37 WBC RBC Hgb Hct MCV MCH MCHC RDW Plt Count MPV Immature Gran % Neutrophils % Lymphocytes % Monocytes % Eosinophils % Basophils % Nucleated RBC % Absolute Neutrophils Absolute Lymphocytes Absolute Monocytes Absolute Eosinophils Absolute Basophils RBC Morphology Sodium 135 L Potassium 3.3 L Chloride 102 Carbon Dioxide 25.1 Anion Gap 7.9 BUN 7 Creatinine 0.7 Est GFR (CKD-EPI 2020) 119.24 Glucose 121 H Calcium 9.2 Total Bilirubin 0.3 AST 11 L ALT 13 L Alkaline Phosphatase 149 H Total Protein 6.8 Albumin 2.7 L Amylase 61 Lipase 37 Fibronectin 06/11/22 13:50 Vaginal/Rectal Group B Streptococcus Culture - Pending Preliminary micro results at discharge 06/11/22 13:50 Group B Streptococcus Culture - Pending Vaginal/Rectal PFSH All Active Problems Right lower quadrant pain (Acute) Premature uterine contractions (Acute) 33 weeks gestation of (Acute) Breech presentation (Acute) Abdominal pain, RUQ (Acute) History of macrosomia in infant in prior , currently (Acute) Maternal varicella, non-immune (Acute) BMI 31.0-31.9,adult (Acute) (Acute) Rh negative state in antepartum period (Acute) Medical History Biliary colic Family history of hypothyroidism Ingrown left big toenail Ingrown nail of great toe of right foot Leukocytosis Low TSH level resolved on repeat TSH (during ) Missed menses Surgical History Hx of cholecystectomy Evarts teeth removed Family History Mother Thyroid disorder hypothyroid History of hysterectomy for benign disease fibroids Hx laparoscopic cholecystectomy Preeclampsia Gallbladder disease Sister Raynaud's disease Thyroid disorder hypothyroid, biopsy taken Preeclampsia Maternal Grandmother Hypertension Parkinson's disease Maternal Grandfather Hypertension Myocardial infarction Paternal Grandmother Diabetes Hypertension Breast cancer Paternal Grandfather Hx of cholecystectomy Brother Liver disease Father Gallbladder disease Sister No problems noted. Sister No problems noted. Brother No problems noted. Brother Hypothyroid Sister No problems noted. Daughter No problems noted. Social History Smoking/Tobacco Use Status: Never Second Hand Exposure: Yes Smoking risk assessment performed?: Yes Alcohol Intake: current Alcohol Intake frequency: holidays/special occasions only Details: social, 1x/mos. w/o use w/ knowledge of . Drug use: Never Substance use type: does not use Adopted: No Caregiver/Support person: No Foster care: No Household members: spouse and children Housing: house Number of Children: 0 Communication Needs: Corrective Lenses Do you need help understanding health information?: Never current occupation: nurse [employer]. Pets and animals: Yes Pets and animals: dog(s) Sexually active: Yes Current gender identity: female What is your relationship status?: How often do you talk on the phone with friends or family?: three or more times per week Do you belong to any clubs or organized social groups?: yes Panel score (0-1 are the most socially isolated patients): 3 What type of physical activity do you participate in: walking, weight lifting and other Sadaf/Rastafari: Other Special sadaf needs: No Agree to transfusion: Yes Seatbelt use: always Helmet use: Yes (not w/ bicycle, enc. to use at all times.) Helmet use: sometimes Drive intox or ride w/intox entry driver operator: No Water heater temp set <120 deg: No (unknown, will check.) Working smoke detector in home: Yes Fire extinguisher in home: Yes Carbon monox detector in home: Yes Firearms in home: Yes (yes,) Do you feel safe at home: Yes Do you feel safe in your relationship?: Yes Victim of physical abuse: No Victim of emotional abuse: No Victim of sexual abuse: No Female Reproductive History Menstrual Age of Menarche: 13 Duration of menses: 3-5 days control method: none History History 4 Para 3 Hx # Term Pregnancies 3 Multiple births 0 Hx # Pregnancies 0 Ectopic pregnancies 0 AB induced 0 Hx Number of Living Children 3 AB spontaneous 0 Past Pregnancies Del. Date GA/Weeks # Preg Succ Route Wgt Sex Labor Lgth Anesth esia Location Prov Complic 09/14/18 41 No vaginal 9 lb 3 oz Female ashley Carr CNM 11/07/19 39 No vaginal 8 lb 9 oz Male 24 hours [facility] Froylan Powers CNM 02/08/21 41 No Yes vaginal 8 lb 12.03 oz Female 8 hours [facility] Delivery Date: 09/14/18 Last Updated by: Yana Blake IOL for postdates and PROM, prolonged labor> 20 hrs, pit aug, epidural Delivery Date: 11/07/19 Last Updated by: Yana Blake IOL for unstable lie, epidural, had decreased FHT with bright red bleeding right before delivery, tight nuchal cord, first degree Delivery Date: 02/08/21 Last Updated by: Irina Powers CNM Spontaneous labor, Tub . Time Spent with Patient Time Spent with Patient: 45-69 minutes Time was spent: preparing to see the patient(eg.review tests), obtaining and/or reviewing separately otained hiistory, referring, communicating with other health manager critical care unit, counseling the patient and care coordination
[2022-06-11] MEDS: Normal Saline 1,000 ML 125 ML IV (17:11)
[2022-06-11] MEDS: PIPERACILLIN/TAZO 3.375 GM in Normal Saline 50 ML IVPB (17:39)
--- NOTE | 2022-06-11 17:52 | DI.VRAD_ITS ---
Addendum created by Alex Santoro MD on 06/11/2022 6:11:53 PM EDT: THIS REPORT CONTAINS FINDINGS THAT MAY BE CRITICAL TO PATIENT CARE. The findings were verbally communicated via telephone conference with Saba Albert at 6:11 PM EDT on 06/11/2022. The findings were acknowledged and understood. Initial report created on 06/11/2022 5:52:29 PM EDT: PROCEDURE INFORMATION: Exam: US Abdomen, Limited; Appendix Exam date and time: 06/11/2022 2:56 PM Age: 31 years old Clinical indication: Other: Rlq pain; Patient HX: 33 weeks TECHNIQUE: Imaging protocol: Real time ultrasound of the abdomen with image documentation. Limited exam focused on the appendix. COMPARISON: US ABDOMEN 07/21/2020 9:49 AM FINDINGS: Appendix: A 13 mm dilated tubular structure is identified in the right lower quadrant (series 2, image 170). This structure appears to be blind ending suspicious for a dilated appendix. However, no measurements or color Doppler images are provided for review. No right lower quadrant abscess identified on the images provided. Other findings: Multiple attempts were made to contact Shannon Steiner the concrete crusher loader operator who performed the exam to clarify findings without success. Ultrasound worksheet provided by the concrete crusher loader operator simply states negative sonographic Rodriguez sign. However, no images of the gallbladder were submitted for review. IMPRESSION: Possible acute appendicitis. Surgical consult and further evaluation with MRI is recommended. Dictated and Authenticated by: Alex Santoro MD. Ordering:KASI Walter MD
[2022-06-11 19:06] VITALS: BP 126/70; PULSE 103
== END 2022-06-11 19:30 | disposition short-term general hospital (02) ==
LOC: OBS 17:11 → BCD 06-29 13:29
PROVIDERS: Admitting Provider Advanced Practice Midwife; PCP Nurse Practitioner Family; Visit Provider Advanced Practice Midwife
DX: R10.11 Right upper quadrant pain (principal); O32.1XX0 Maternal care for breech presentation, not applicable or unspecified; Z3A.33 33 weeks gestation of pregnancy; O47.03 False labor before 37 completed weeks of gestation, third trimester; R10.31 Right lower quadrant pain; O26.893 Other specified pregnancy related conditions, third trimester
CPT/HCPCS: 80053; 83690; 59025; 76705; 82150; 82731; 85025; 87081; 87480; 87510; 87660; J0702; J2543

== ENCOUNTER 2022-07-04 15:51 | Outpatient (REF) | payer MEDICAID, SELFPAY ==
[2022-07-04 17:32] LABS: *AMPHETAMINES SCREEN URINE Negative (Negative); *BARBITURATES SCREEN URINE Negative (Negative); *BENZODIAZEPINES SCREEN URINE Negative (Negative); Cannabinoids THC Negative (Negative); Cocaine Screen,Urine Negative (Negative); METHADONE URINE SCREEN Negative (Negative); OPIATES URINE SCREEN Negative (Negative); Tricyclic Antidepressants Negative (Negative)
[2022-07-09 13:55] LABS: Buprenorphine Negative ng/mL (Cutoff: 5.0)
== END 2022-07-04 15:52 | disposition home or self-care (01) ==
LOC: LBN 15:51
PROVIDERS: PCP Nurse Practitioner Family; Visit Provider Advanced Practice Midwife
DX: Z34.90 Encounter for supervision of normal pregnancy, unspecified, unspecified trimester (principal)
CPT/HCPCS: 80307; 80348; 87081

== ENCOUNTER 2022-07-07 10:12 | Outpatient (CLI) | payer MEDICAID, SELFPAY ==
[2022-07-07 11:12] VITALS: BP 136/83; PULSE 89; RESP 16; TEMP 36.9; O2SAT 99
[2022-07-07 11:19] VITALS: BP 136/83; PULSE 89; RESP 16; TEMP 36.9; O2SAT 99
[2022-07-07 13:13] VITALS: BP 134/77; PULSE 107
[2022-07-07 13:43] VITALS: BP 136/83; PULSE 89; TEMP 36.9
--- NOTE | 2022-07-07 14:36 | W.OBNST ---
Date of service: 07/07/22 Time of Service: 14:36 NST Evaluation Reason for NST Reasons for Nonstress Test: OTHER, SEE COMMENT Reason for NST Other: Version Gestational Age Gestational Age in Weeks and Days: 36 Weeks and 6Days Test and Monitor Explained Test/Monitor Explained: Test Explained, Monitor Explained and Patient Verbalized Understanding Vital Signs Blood Pressure: 136/83 Pulse: 89 Temperature: 98.4 F NST Information Date on Monitor: 07/07/22 Time on Monitor: 11:07 Date off Monitor: 07/07/22 Time off Monitor: 11:28 Total Time on Monitor: 21 NST Interventions: Other Contraction Frequency: Occasional NST Evaluation Patient States Movement: Present FHR Baseline: 135 Variability: Moderate 6-25 bpm Accelerations: 15x15 Decelerations: None NST Results: Reactive Note Ultrasound Done: Presentation (Transabdominal bedside ultrasound for presentation) Presentation Results: Vertex, back to the right lateral side Coding for Presentation w/NST: Completed Exam. NST Note Note: Category 1, reactive nonstress test. Ultrasound at the bedside confirming vertex position. Follow-up as scheduled. No version necessary. NST Reviewed and Verified by: Mirella Albert
[2022-07-07 14:37] VITALS: BP 136/83; PULSE 89; TEMP 36.9
== END 2022-07-07 11:40 | disposition home or self-care (01) ==
LOC: OBS 10:39 → BCD 07-08 09:23
PROVIDERS: PCP Nurse Practitioner Family; Visit Provider Obstetrics & Gynecology Gynecology
DX: O32.1XX1 Maternal care for breech presentation, fetus 1 (principal); Z3A.36 36 weeks gestation of pregnancy
CPT/HCPCS: 59025

== ENCOUNTER 2022-07-19 06:00 | Inpatient (IN) | payer MEDICAID, SELFPAY ==
--- NOTE | 2022-07-12 12:50 | HPE_ITS ---
Date of service: 07/12/22 Time of Service: 12:51 Assessment and Plan Assessment and plan (1) History of macrosomia in in prior , currently : Status: Acute Assessment and plan: Patient will be 38 weeks and 4 days on presentation. Ultrasound evaluation will be performed for assessment of position. If not vertex, external cephalic version will be attempted. If vertex in presentation induction latent labor will happen that day. If patient gets into the vertex position, we will proceed with induction of labor for the midwives. Patient understands the risks of external cephalic version with and the possibility of need for delivery. All questions have been previously answered. (2) Unstable lie of fetus, antepartum: Status: Acute OB-HPI Labor/Delivery History of Present Illness Reason for Visit: version Chief Complaint: Other (breech, version followed by IOL). SADA Calculator Estimated Delivery Date Method Current WG Current Estimate 07/29/22 LMP (Certain) 37w 4d Other Estimates 07/31/22 Ultrasound #1 37w 2d History of Present Expected Delivery Route/Plan - CNM ? FOB/ - Fabricio Hoover BB yes to circ Hopes for tub GBS negative @ 33 wks- repeat before 07/16-neg Specific Issues/Plan 1. Unvaccinated against Covid- declines vaccine 2. Prev macrosomia and BMI @ 31; declines early glucola- will test QID x 2 weeks. 3. RH neg - Received rhogam at 28 weeks 4. Hx of low TSH during - TSH with reflex drawn 01/24 TSH-0.04/T4-1.04,repeat thyroid testing every trimester___ 5. Family history preeclampsia and BMI 31 - offer low dose ASA- declines. 6. Rubella non-immune - offer vaccine post 7. Panorama: low risk x5 male, Second trimester AFP - WNL 8. Declines GTT, will test QID x 2 weeks. 9. Right upper abdominal pain. Transferred to [facility] for rulw out appendicitis - treated with antibiotics and symptoms subsided. Narrative: Patient will present to the center at 38 weeks and 4 days for external cephalic version. Ultrasound will be performed to confirm position. If the baby is not vertex, external cephalic version will be attempted. If she presents and is vertex, labor induction we will proceed. If version is successful, she will be kept for induction of labor due to unstable lie. All questions have been previously answered. Informed Consent Informed Consent: Other (Version) PFSH All Active Problems (Updated 07/12/22 @ 12:53 by Mirella Albert DO) Unstable lie of fetus, antepartum (Acute) Right lower quadrant pain (Acute) Premature uterine contractions (Acute) 33 weeks gestation of (Acute) Breech presentation (Acute) History of macrosomia in in prior , currently (Acute) Maternal varicella, non-immune (Acute) BMI 31.0-31.9,adult (Acute) (Acute) Rh negative state in antepartum period (Acute) Medical History Biliary colic Family history of hypothyroidism Ingrown left big toenail Ingrown nail of great toe of right foot Leukocytosis Low TSH level resolved on repeat TSH (during ) Missed menses Surgical History Hx of cholecystectomy [place] teeth removed Family History Mother Thyroid disorder hypothyroid History of hysterectomy for benign disease fibroids Hx laparoscopic cholecystectomy Preeclampsia Gallbladder disease Sister Raynaud's disease Thyroid disorder hypothyroid, biopsy taken Preeclampsia Maternal Grandmother Hypertension Parkinson's disease Maternal Grandfather Hypertension Myocardial infarction Paternal Grandmother Diabetes Hypertension Breast cancer Paternal Grandfather Hx of cholecystectomy Brother Liver disease Father Gallbladder disease Sister No problems noted. Sister No problems noted. Brother No problems noted. Brother Hypothyroid Sister No problems noted. Daughter No problems noted. Social History Smoking/Tobacco Use Status: Never Second Hand Exposure: Yes Smoking risk assessment performed?: Yes Alcohol Intake: current Alcohol Intake frequency: holidays/special occasions only Details: social, 1x/mos. w/o use w/ knowledge of . Drug use: Never Substance use type: does not use Adopted: No Caregiver/Support person: No Foster care: No Household members: spouse and children Housing: house Number of Children: 0 Communication Needs: Corrective Lenses Do you need help understanding health information?: Never current occupation: nurse [employer]. Pets and animals: Yes Pets and animals: dog(s) Sexually active: Yes Current gender identity: female What is your relationship status?: How often do you talk on the phone with friends or family?: three or more times per week Do you belong to any clubs or organized social groups?: yes Panel score (0-1 are the most socially isolated patients): 3 What type of physical activity do you participate in: walking, weight lifting and other Sadaf/Orthodox: Other Special sadaf needs: No Agree to transfusion: Yes Seatbelt use: always Helmet use: Yes (not w/ bicycle, enc. to use at all times.) Helmet use: sometimes Drive intox or ride w/intox driver license agent: No Water heater temp set <120 deg: No (unknown, will check.) Working smoke detector in home: Yes Fire extinguisher in home: Yes Carbon monox detector in home: Yes Firearms in home: Yes (yes,) Do you feel safe at home: Yes Do you feel safe in your relationship?: Yes Victim of physical abuse: No Victim of emotional abuse: No Victim of sexual abuse: No Female Reproductive History Menstrual Age of Menarche: 13 Duration of menses: 3-5 days control method: none History History 4 Para 3 Hx # Term Pregnancies 3 Multiple births 0 Hx # Pregnancies 0 Ectopic pregnancies 0 AB induced 0 Hx Number of Living Children 3 AB spontaneous 0 Past Pregnancies Del. Date GA/Weeks # Preg Succ Route Wgt Sex Labor Lgth Anesth esia Location [facility] 09/14/18 41 No vaginal 9 lb 3 oz Female ashley Carr CNM 11/07/19 39 No vaginal 8 lb 9 oz Male 24 hours [facility] Froylan Powers CNM 02/08/21 41 No Yes vaginal 8 lb 12.03 oz Female 8 hours [facility] Delivery Date: 09/14/18 Last Updated by: Yana Blake IOL for postdates and PROM, prolonged labor> 20 hrs, pit aug, epidural Delivery Date: 11/07/19 Last Updated by: Yana Blake IOL for unstable lie, epidural, had decreased FHT with bright red bleeding right before delivery, tight nuchal cord, first degree Delivery Date: 02/08/21 Last Updated by: Irina Powers CNM Spontaneous labor, Tub . Meds Allergies and Home Medications Allergies Allergy/AdvReac Type Severity Reaction Status Date / Time house dust Allergy Mild Verified 07/11/22 14:28 jaison Allergy Hives Verified 07/11/22 14:28 soap Allergy Blisters Verified 07/11/22 14:28 on hands pollen Allergy Intermediate Uncoded 07/11/22 14:28 Home Medications Medication Instructions Recorded Confirmed Type prenat.vits,jil,zmk-fnvf-hirig 1 tab PO DAILY 02/05/18 07/11/22 History magnesium 250 mg tablet 250 mg PO DAILY PRN 09/28/18 07/11/22 History cholecalciferol (vitamin D3) 100 1,000 unit PO PRN 07/26/19 07/11/22 History mcg (4,000 unit) capsule sennosides 8.6 mg-docusate sodium 1 tab-cap PO .COMPLEX PRN 10/28/19 07/11/22 History 50 mg capsule (Senna Plus) ascorbate calcium (vitamin C) 500 1 g PO DAILY PRN 01/25/21 07/11/22 History mg tablet loratadine 10 mg tablet 10 mg PO DAILY 03/23/21 07/11/22 History blood sugar diagnostic (FreeStyle #100 ea 02/14/22 07/11/22 Rx Lite Strips) lancets 28 gauge (FreeStyle #100 ea 02/14/22 07/11/22 Rx Lancets) zinc gluconate 50 mg tablet 50 mg PO DAILY 06/20/22 07/11/22 History Exam Detailed Labor and Delivery Exam Man Score: Cervical Points Exam 0 1 2 3 Dilation Closed 1-2cm 3-4 cm 5-6cm Effacement 0-30% 40-50% 60-70% 80% Consistency Firm Medium Soft Station -3 -2 -1,0 +1,+2 Position Posterior Mid Anterior Risk Assessment Risk for Shoulder Dystocia Historical/Initial OB: POSITIVE FOR: Pre- BMI>30 and Previous Macrosomia; NEGATIVE FOR: Pelvic Abnormality or Previous Shoulder Dystocia Counseling: proven to 9'3 Risk for Pre-Eclampsia Date Initiated/Initials: pt advised, she declines at this time 07/13. Yes, if one or more: NEGATIVE FOR: Hx Pre-E/Gest HTN, Chronic HTN, Multiple Gestation, Pre-gestational DM, Renal Disease, Systemic Lupus or APA Syndrome Yes, if 2 or more: POSITIVE FOR: BMI>30 and Mother/Sister w/ Pre-E; NEGATIVE FOR: Nulliparity, Age>= 35 yrs, >10yr btwn pregnancies, ethinicty or Previous IUGR Risk for Post- Hemorrhage Initial: NEGATIVE FOR: Multiple Gestation, Previous PPH, Known Clotting Deficiency, Grand Multiparity or Anticoagulation Risks Reviewed Risks Reviewed Upon Admission: Yes
[2022-07-19] VITALS (10 sets, daily range): BP systolic 124–164; BP diastolic 70–83; PULSE 72–86; RESP 16–18; TEMP 36.5–36.9
[2022-07-19 11:07] LABS: HCT 40.6 % (36.0-46.0); HGB 13.6 g/dL (11.2-15.7); MCH 30.1 pg (27.0-33.0); MCHC 33.5 % (32.0-36.0); MCV 90 fL (80-95); MPV 11.3 fL (8.0-11.0); Platelet Count 267 10^3/uL (130-400); RBC 4.52 10^6/uL (3.93-5.22); RDW 14.8 % (11.7-14.6); RDW-SD 48.6 fL; WBC 12.23 10^3/uL (4.4-10.8)
--- NOTE | 2022-07-19 11:44 | HPE_ITS ---
Date of service: 07/19/22 Time of Service: 11:44 Assessment and Plan Assessment and plan (1) Encounter for planned induction of labor: Status: Acute Assessment and plan: 1. Admission for potential ECV and induction of labor due to unstable lie, on arrival baby has cephalic MOIRA presentation. 2. Plan to initiate pitocin induction per patient desire and recent history of unstable lie 3. Risks, benefits and alternatives to IOL and pitocin reviewed. Denies questions 4. CBC, type and screen and COVID test obtained 5. IV access and continuous EFM to be started with pitocin 6. Regular diet until active labor 7. Abdominal binder placed to hold baby in cephalic presentation will scan additionally as indicated. 8. Dr. Albert is aware of plan and agrees to POC 9. Expect NVD, will perform water if labor progresses normally and we can use telemetry monitoring. KH OB-HPI Labor/Delivery History of Present Illness Reason for Visit: Breech Chief Complaint: Scheduled Induction of Labor Indication for Induction: Other (unstable lie). SADA Calculator Estimated Delivery Date Method Current WG Current Estimate 07/29/22 LMP (Certain) 38w 4d Other Estimates 07/31/22 Ultrasound #1 38w 2d History of Present Expected Delivery Route/Plan - CNM ? FOB/ - Fabricio Hoover BB yes to circ Hopes for tub GBS negative @ 33 wks- repeat before 07/16-neg Specific Issues/Plan 1. Unvaccinated against Covid- declines vaccine 2. Prev macrosomia and BMI @ 31; declines early glucola- will test QID x 2 weeks. 3. RH neg - Received rhogam at 28 weeks 4. Hx of low TSH during - TSH with reflex drawn 01/24 TSH-0.04/T4-1.04,repeat thyroid testing every trimester___ 5. Family history preeclampsia and BMI 31 - offer low dose ASA- declines. 6. Rubella non-immune - offer vaccine post 7. Panorama: low risk x5 male, Second trimester AFP - WNL 8. Declines GTT, will test QID x 2 weeks. 9. Right upper abdominal pain. Transferred to [facility] for rulw out appendicitis - treated with antibiotics and symptoms subsided. Assessment: History Reviewed & Current Narrative: Gila and Shiva present for potential ECV and then induction of labor once fetus is cephalic. On arrival, cephalic presentation confirmed by US. Plan is to move forward with pitocin induction per patient preference. She declines AROM or other methods of induction at this time. She is hoping that labor will begin and she will deliver in tub if maternal and labor status is normal with use of continuous monitoring with telemetry monitoring. Denies questions, agrees to plan of care. Abdominal binder placed to try to maintain cephalic presentation. Expect NVD. Informed Consent Informed Consent: Induction of Labor and Risk,Benefits,Alternatives Discussed PFS All Active Problems Encounter for planned induction of labor (Acute) Unstable lie of fetus, antepartum (Acute) History of macrosomia in in prior , currently (Acute) Maternal varicella, non-immune (Acute) BMI 31.0-31.9,adult (Acute) (Acute) Rh negative state in antepartum period (Acute) Medical History 33 weeks gestation of Biliary colic Breech presentation Family history of hypothyroidism Ingrown left big toenail Ingrown nail of great toe of right foot Leukocytosis Low TSH level resolved on repeat TSH (during ) Missed menses Premature uterine contractions Right lower quadrant pain Surgical History Hx of cholecystectomy [place] teeth removed Family History Mother Thyroid disorder hypothyroid History of hysterectomy for benign disease fibroids Hx laparoscopic cholecystectomy Preeclampsia Gallbladder disease Sister Raynaud's disease Thyroid disorder hypothyroid, biopsy taken Preeclampsia Maternal Grandmother Hypertension Parkinson's disease Maternal Grandfather Hypertension Myocardial infarction Paternal Grandmother Diabetes Hypertension Breast cancer Paternal Grandfather Hx of cholecystectomy Brother Liver disease Father Gallbladder disease Sister No problems noted. Sister No problems noted. Brother No problems noted. Brother Hypothyroid Sister No problems noted. Daughter No problems noted. Social History Smoking/Tobacco Use Status: Never Second Hand Exposure: Yes Smoking risk assessment performed?: Yes Alcohol Intake: current Alcohol Intake frequency: holidays/special occasions only Details: social, 1x/mos. w/o use w/ knowledge of . Drug use: Never Substance use type: does not use Adopted: No Caregiver/Support person: No Foster care: No Household members: spouse and children Housing: house Number of Children: 0 Communication Needs: Corrective Lenses Do you need help understanding health information?: Never current occupation: nurse [employer]. Pets and animals: Yes Pets and animals: dog(s) Sexually active: Yes Current gender identity: female What is your relationship status?: How often do you talk on the phone with friends or family?: three or more times per week Do you belong to any clubs or organized social groups?: yes Panel score (0-1 are the most socially isolated patients): 3 What type of physical activity do you participate in: walking, weight lifting and other Sadaf/Pentecostalism: Other Special sadaf needs: No Agree to transfusion: Yes Seatbelt use: always Helmet use: Yes (not w/ bicycle, enc. to use at all times.) Helmet use: sometimes Drive intox or ride w/intox driver helper: No Water heater temp set <120 deg: No (unknown, will check.) Working smoke detector in home: Yes Fire extinguisher in home: Yes Carbon monox detector in home: Yes Firearms in home: Yes (yes,) Do you feel safe at home: Yes Do you feel safe in your relationship?: Yes Victim of physical abuse: No Victim of emotional abuse: No Victim of sexual abuse: No Female Reproductive History Menstrual Age of Menarche: 13 Duration of menses: 3-5 days control method: none History History 4 Para 3 Hx # Term Pregnancies 3 Multiple births 0 Hx # Pregnancies 0 Ectopic pregnancies 0 AB induced 0 Hx Number of Living Children 3 AB spontaneous 0 Past Pregnancies Del. Date GA/Weeks # Preg Succ Route Wgt Sex Labor Lgth Anesth esia Location [facility] 09/14/18 41 No vaginal 9 lb 3 oz Female ashley Carr CNM 11/07/19 39 No vaginal 8 lb 9 oz Male 24 hours ashley Powers CNM 02/08/21 41 No Yes vaginal 8 lb 12.03 oz Female 8 hours MICHELL Hollingsworth Delivery Date: 09/14/18 Last Updated by: Yana Blake IOL for postdates and PROM, prolonged labor> 20 hrs, pit aug, epidural Delivery Date: 11/07/19 Last Updated by: Yana Blake IOL for unstable lie, epidural, had decreased FHT with bright red bleeding right before delivery, tight nuchal cord, first degree Delivery Date: 02/08/21 Last Updated by: Irina Powers CNM Spontaneous labor, Tub . Meds Allergies and Home Medications Allergies Allergy/AdvReac Type Severity Reaction Status Date / Time house dust Allergy Mild Verified 07/19/22 12:01 jaison Allergy Hives Verified 07/19/22 12:01 soap Allergy Blisters Verified 07/19/22 12:01 on hands pollen Allergy Intermediate Uncoded 07/19/22 12:01 Home Medications Medication Instructions Recorded Confirmed Type prenat.vits,jil,enl-lpuq-sbrbp 1 tab PO DAILY 02/05/18 07/19/22 History magnesium 250 mg tablet 250 mg PO DAILY PRN 09/28/18 07/19/22 History cholecalciferol (vitamin D3) 100 1,000 unit PO PRN 07/26/19 07/19/22 History mcg (4,000 unit) capsule sennosides 8.6 mg-docusate sodium 1 tab-cap PO .COMPLEX PRN 10/28/19 07/19/22 History 50 mg capsule (Senna Plus) ascorbate calcium (vitamin C) 500 1 g PO DAILY PRN 01/25/21 07/19/22 History mg tablet loratadine 10 mg tablet 10 mg PO DAILY 03/23/21 07/19/22 History blood sugar diagnostic (FreeStyle #100 ea 02/14/22 07/11/22 Rx Lite Strips) lancets 28 gauge (FreeStyle #100 ea 02/14/22 07/11/22 Rx Lancets) zinc gluconate 50 mg tablet 50 mg PO DAILY 06/20/22 07/19/22 History Exam Physical Exam Vital signs: VS pending at this time. KH Constitutional Constitutional: no acute distress Detailed Labor and Delivery Exam Dilation: 1 Effacement (%): 50 station: -1 Position: MOIRA Cervix position: mid Consistency: soft Campbell Score: Cervical Points Exam 0 1 2 3 Dilation Closed 1-2cm 3-4 cm 5-6cm Effacement 0-30% 40-50% 60-70% 80% Consistency Firm Medium Soft Station -3 -2 -1,0 +1,+2 Position Posterior Mid Anterior CAMPBELL Score(Cervical Ripeness Score): 7 Amniotic Membrane Status: Intact Contraction Frequency(min): rare Contraction Duration(sec): irregular Contraction Intensity: Mild Fetus A Heart Rate Baseline: 140 Monitor Accelerations: Absent Monitor Decelerations: None Variability: Moderate (6-25 BPM) Presentation: Vertex Categories: Category I Est. Weight: 8 lb HEENT Exam HEENT Exam: Normal Neck Exam Neck Exam: Normal (visual inspection) Chest/Brest/Axilla Exam Chest Exam: Not Done Breast Exam Breast Exam: Not Done Respiratory Exam Respiratory Exam: Normal Cardiovascular Exam Cardiovascular Exam: Normal Abdominal Exam Abdominal Exam: Normal (baby is MOIRA, cephalic EFW 8lb) Rectal Exam Rectal Exam: Not Done Exam Exam: Normal Extremities Exam Extremities Exam: Abnormal (superficial varicose veins bilaterally) Back/Spine/Pelvis Exam Back Exam: Normal Pelvis Adequate: Yes Skin Exam Skin Exam: Normal Neurological Exam Neurological Exam: Normal Psychiatric Exam Psychiatric Exam: Normal Results Results Group Beta Strep: Negative Blood Type: O- Rubella Status: Immune Varicella Immunity: Nonimmune Lab Results: Hep B&C neg, HIV neg, Syphilis neg, GC CT neg, CF neg, AFP only Normal risk for ONTD, 1 hour glucose declined by patient, Gila did do QID BG testing for 2 we eks in beginning of and at 28 weeks without elevations in BG's noted. Abnormal Lab Findings: Abnormal Labs 07/19/22 11:00 WBC 12.23 H RDW 14.8 H MPV 11.3 H Ultrasound OB Ultrasound for presentation. Indication: unstable lie, possible ECV Position: MOIRA. Presentation: Vertex. Exam complete. Risk Assessment Risk for Shoulder Dystocia Historical/Initial OB: POSITIVE FOR: Pre- BMI>30 and Previous Macrosomia; NEGATIVE FOR: Pelvic Abnormality or Previous Shoulder Dystocia 40 Weeks: NEGATIVE FOR: EFW> 4500 gms, Maternal Weight Gain >40lb or Post Dates Increased Risk?: No Counseling: proven to 9'3 Delivery Plan @ 40 wks: NVD KH Risk for Pre-Eclampsia Date Initiated/Initials: pt advised, she declines at this time 07/13. Yes, if one or more: NEGATIVE FOR: Hx Pre-E/Gest HTN, Chronic HTN, Multiple Gestation, Pre-gestational DM, Renal Disease, Systemic Lupus or APA Syndrome Yes, if 2 or more: POSITIVE FOR: BMI>30 and Mother/Sister w/ Pre-E; NEGATIVE FOR: Nulliparity, Age>= 35 yrs, >10yr btwn pregnancies, ethinicty or Previous IUGR Risk for Post- Hemorrhage Initial: NEGATIVE FOR: Multiple Gestation, Previous PPH, Known Clotting Deficiency, Grand Multiparity or Anticoagulation At Risk?: No Date/Initials: 07/19/22 KH Risks Reviewed Risks Reviewed Upon Admission: Yes Pocus Exam Limited OB Exam DATE OF EXAM:: 07/19/22 TIME OF EXAM:: 11:26 PROVIDER THAT PERFORMED THE STUDY: Irina Salas Type of Exam: Pelvic OB Trans Abdominal REASON FOR EXAM: other ( presentation) indication: presentation to allow for induction of labor Exam Complete. DIFFERENTAL DIAGNOSES: unstable lie, cephalic presentation noted on exam today INCIDENTAL FINDINGS: none
[2022-07-19] MEDS: Oxytocin/Normal Saline 30 UNIT/500 ML BAG 2 UNITS IV (12:07)
[2022-07-19] MEDS: Lactated Ringers 1,000 ML 125 ML IV ×2 (12:09→20:08)
--- NOTE | 2022-07-19 14:55 | W.PM.OBNL1 ---
Date of service: 07/19/22 Time of Service: 14:45 Informed Consent Informed Consent: Induction of Labor and Risk,Benefits,Alternatives Discussed Fetus A Assessment Note: Monitor is currently off for patient to be out of bed to BR to void Assessment and Plan Assessment and plan (1) Encounter for planned induction of labor: Status: Acute Assessment and plan: 1. US done to confirm presentation as cephalic again as tracing was becomming difficult to maintain 2. Will continue pitocin increases and reassess in 2 hours or prn.KH Objective Abnormal lab results 07/19/22 Range/Units 11:00 WBC 12.23 H (4.4-10.8) 10^3/uL RDW 14.8 H (11.7-14.6) % MPV 11.3 H (8.0-11.0) fL Temp Pulse Resp BP 97.7 F 80 16 126/70 07/19/22 14:22 07/19/22 14:18 07/19/22 14:22 07/19/22 14:18 Laboratory Results WBC Cancelled 07/19/22 Unknown RBC Cancelled 07/19/22 Unknown Hgb Cancelled 07/19/22 Unknown Hct Cancelled 07/19/22 Unknown MCV Cancelled 07/19/22 Unknown MCH Cancelled 07/19/22 Unknown MCHC Cancelled 07/19/22 Unknown RDW Cancelled 07/19/22 Unknown Plt Count Cancelled 07/19/22 Unknown MPV Cancelled 07/19/22 Unknown Patient ABO/Rh O Negative 07/19/22 11:00 Antibody Screen POSITIVE 07/19/22 11:00 Antibody Identification Anti-D 07/19/22 11:00 Subjective Interval history since last seen: Gila is feeling some cramping. US done at bedside to verify cephalic presentation again. KH Results Hemoglobin/Hematocrit: Hgb Cancelled 07/19/22 Unknown Hct Cancelled 07/19/22 Unknown Abnormal Lab Findings: Abnormal Labs 07/19/22 11:00 WBC 12.23 H RDW 14.8 H MPV 11.3 H Pocus Exam Limited OB Exam DATE OF EXAM:: 07/19/22 TIME OF EXAM:: 14:45 PROVIDER THAT PERFORMED THE STUDY: Irina Salas IS THIS A REPEAT EXAM DURING THIS ENCOUNTER: Yes, Provider: Same provider Type of Exam: Pelvic OB Trans Abdominal REASON FOR EXAM: other (has had unstable lie and is being induced) indication: has had unstable lie and is having labor induced, continued verification of cephalic presentation. Exam Complete. DIFFERENTAL DIAGNOSES: Cephalic presentation confirmed
--- NOTE | 2022-07-19 19:07 | W.PM.OBNL1 ---
Date of service: 07/19/22 Time of Service: 19:07 Informed Consent Informed Consent: Induction of Labor and Risk,Benefits,Alternatives Discussed Pelvic Exam Comments: deferred Contractions Monitor Mode: Palpation (nursing is trying to get telemetry working right now) Contraction Frequency(min): irregular Contraction Duration(sec): 40-50 Intensity: Mild Fetus A Monitor: External (US) Heart Rate Baseline: 145 Amniotic Membrane Status: Intact Assessment Note: broken tracing while adjusting monitor Assessment and Plan Assessment and plan (1) Encounter for planned induction of labor: Status: Acute Assessment and plan: 1. Baby has remained cephalic 2. Will continue with pitocin until 20 mu and if not in active labor at that point will discontinue pitocin and change to misoprostol 50 mcg PO and reassess. 3. Continue to expect NVD. KH Objective Abnormal lab results 07/19/22 Range/Units 11:00 WBC 12.23 H (4.4-10.8) 10^3/uL RDW 14.8 H (11.7-14.6) % MPV 11.3 H (8.0-11.0) fL Temp Pulse Resp BP 97.7 F 86 16 124/77 07/19/22 14:22 07/19/22 18:11 07/19/22 14:22 07/19/22 18:11 Laboratory Results WBC Cancelled 07/19/22 Unknown RBC Cancelled 07/19/22 Unknown Hgb Cancelled 07/19/22 Unknown Hct Cancelled 07/19/22 Unknown MCV Cancelled 07/19/22 Unknown MCH Cancelled 07/19/22 Unknown MCHC Cancelled 07/19/22 Unknown RDW Cancelled 07/19/22 Unknown Plt Count Cancelled 07/19/22 Unknown MPV Cancelled 07/19/22 Unknown COVID-19 Source Cancelled 07/19/22 11:42 SARS-CoV-2 (PCR) Cancelled 07/19/22 11:42 Patient ABO/Rh O Negative 07/19/22 11:00 Antibody Screen POSITIVE 07/19/22 11:00 Antibody Identification Anti-D 07/19/22 11:00 Subjective Interval history since last seen: Gila is feeling some cramping and agrees that cervical ripening later with misoprostol might be beneficial. We plan to continue with pitocin until it is at 20 mu and if not actively camacho will take a 1 hour break and give 50 mcg of misoprostol PO at 2100. KH Results Hemoglobin/Hematocrit: Hgb Cancelled 07/19/22 Unknown Hct Cancelled 07/19/22 Unknown Abnormal Lab Findings: Abnormal Labs 07/19/22 11:00 WBC 12.23 H RDW 14.8 H MPV 11.3 H
[2022-07-19] MEDS: Acetaminophen 325 MG TAB 650 MG PO (20:07)
--- NOTE | 2022-07-19 23:29 | W.PM.OBNL1 ---
Date of service: 07/19/22 Time of Service: 23:29 Informed Consent Informed Consent: Induction of Labor and Risk,Benefits,Alternatives Discussed Pelvic Exam Comments: VE deferred Contractions Monitor Mode: External Contraction Frequency(min): 3-4 Contraction Duration(sec): 60 Intensity: Mild Fetus A Monitor: Novii Heart Rate Baseline: 130 Presentation: Cephalic Variability: Moderate (6-25 BPM) Categories: Category I Accelerations: 15 X 15 Amniotic Membrane Status: Intact Assessment and Plan Assessment and plan (1) Encounter for planned induction of labor: Status: Acute Assessment and plan: 1. Option of continued pitocin to 26 mu VS discontinuing and beginning misoprostol reviewed. Patient prefer Misoprostol. 2. Will allow rest until 0100 and then give 50 mcg Misoprostol 3. Reassess in 4 hours or prn 4. Cephalic presentation at this time by jaime's 5. Expect NVD. KH Objective Abnormal lab results 07/19/22 Range/Units 11:00 WBC 12.23 H (4.4-10.8) 10^3/uL RDW 14.8 H (11.7-14.6) % MPV 11.3 H (8.0-11.0) fL Temp Pulse Resp BP 97.8 F 72 18 138/73 07/19/22 22:34 07/19/22 22:34 07/19/22 22:34 07/19/22 22:34 Laboratory Results WBC Cancelled 07/19/22 Unknown RBC Cancelled 07/19/22 Unknown Hgb Cancelled 07/19/22 Unknown Hct Cancelled 07/19/22 Unknown MCV Cancelled 07/19/22 Unknown MCH Cancelled 07/19/22 Unknown MCHC Cancelled 07/19/22 Unknown RDW Cancelled 07/19/22 Unknown Plt Count Cancelled 07/19/22 Unknown MPV Cancelled 07/19/22 Unknown COVID-19 Source Cancelled 07/19/22 11:42 SARS-CoV-2 (PCR) Cancelled 07/19/22 11:42 Patient ABO/Rh O Negative 07/19/22 11:00 Antibody Screen POSITIVE 07/19/22 11:00 Antibody Identification Anti-D 07/19/22 11:00 Subjective Interval history since last seen: Gila is feeling mild contractions but feels she could sleep through them. Pitocin is at 20 mu and she would like to switch to misoprostol and see if contractions will increase with that. Has had misoprostol in past and denies questions. KH Interventions Induction (unstable lie) Indication: Other (unstable lie), Type of Induction: Misoprostol (50 mcg) administration: Oral (will give at 0100) and Pitocin rate at(mU/min): 20 discontinued at this time and will begin Misoprostol ., Results Hemoglobin/Hematocrit: Hgb Cancelled 07/19/22 Unknown Hct Cancelled 07/19/22 Unknown Abnormal Lab Findings: Abnormal Labs 07/19/22 11:00 WBC 12.23 H RDW 14.8 H MPV 11.3 H
[2022-07-20] VITALS (8 sets, daily range): BP systolic 129–155; BP diastolic 76–87; PULSE 76–92; TEMP 36.7–36.9
[2022-07-20] MEDS: miSOPROStol 25 MCG TAB 50 MCG PO ×2 (01:05→05:04)
--- NOTE | 2022-07-20 08:34 | W.PM.OBNL1 ---
Date of service: 07/20/22 Time of Service: 07:47 Informed Consent Informed Consent: Induction of Labor and Risk,Benefits,Alternatives Discussed Pelvic Exam Comments: VE deferred. Contractions Monitor Mode: External Contraction Frequency(min): 4 Contraction Duration(sec): 50 Intensity: Mild Fetus A Monitor: External (US) Heart Rate Baseline: 137 Presentation: Breech (pocus exam done) Variability: Moderate (6-25 BPM) Amniotic Membrane Status: Intact Assessment and Plan Assessment and plan (1) Encounter for planned induction of labor: Status: Acute Assessment and plan: 1. Due to baby breech this morning by US, Consult with Dr. Albert done in patient room. Option of continued attempt to induce and do ECV, vs expectant management and return for repeat assessment in <1 week reviewed. Gila prefers to be discharged to home and to call if labor ensues or return Monday07/25/22 for further assessment and potential induction. 2. Reviewed risks of potential prolapse of cord, arm or leg if nothing is in the pelvis, to call with ROM and come in or if in labor. 3. section discussed as potential due to persistent unstable lie, the procedure, anesthesia possibilities and risks, benefits all discussed by Dr. Albert with Gila and Shiva. They verbalize understanding. 4. Will return to on 07/25 for further assessment (2) Unstable lie of fetus, antepartum: Status: Acute Assessment and plan: 1. POCUS done after repeat Leopolds indicates breech, US confirmed breech presentation. KH Objective Abnormal lab results 07/19/22 Range/Units 11:00 WBC 12.23 H (4.4-10.8) 10^3/uL RDW 14.8 H (11.7-14.6) % MPV 11.3 H (8.0-11.0) fL Temp Pulse Resp BP 98.1 F 85 18 146/87 H 07/20/22 05:12 07/20/22 07:51 07/19/22 22:34 07/20/22 07:51 Laboratory Results WBC Cancelled 07/19/22 Unknown RBC Cancelled 07/19/22 Unknown Hgb Cancelled 07/19/22 Unknown Hct Cancelled 07/19/22 Unknown MCV Cancelled 07/19/22 Unknown MCH Cancelled 07/19/22 Unknown MCHC Cancelled 07/19/22 Unknown RDW Cancelled 07/19/22 Unknown Plt Count Cancelled 07/19/22 Unknown MPV Cancelled 07/19/22 Unknown COVID-19 Source Cancelled 07/19/22 11:42 SARS-CoV-2 (PCR) Cancelled 07/19/22 11:42 Patient ABO/Rh O Negative 07/19/22 11:00 Antibody Screen POSITIVE 07/19/22 11:00 Antibody Identification Anti-D 07/19/22 11:00 Subjective Interval history since last seen: Feeling well. Is unaware of contractions. Results Hemoglobin/Hematocrit: Hgb Cancelled 07/19/22 Unknown Hct Cancelled 07/19/22 Unknown Abnormal Lab Findings: Abnormal Labs 07/19/22 11:00 WBC 12.23 H RDW 14.8 H MPV 11.3 H Pocus Exam Limited OB Exam DATE OF EXAM:: 07/20/22 TIME OF EXAM:: 07:47 PROVIDER THAT PERFORMED THE STUDY: Irina Salas IS THIS A REPEAT EXAM DURING THIS ENCOUNTER: Yes, Provider: Same provider Type of Exam: Pelvic OB Trans Abdominal REASON FOR EXAM: other (unstable lie) indication: unstable lie Exam Complete. DIFFERENTAL DIAGNOSES: unstable lie
--- NOTE | 2022-07-20 08:50 | DSE_ITS ---
Date of service: 07/20/22 Time of Service: 08:50 DS: Diagnosis Discharge Diagnosis (1) Encounter for planned induction of labor: Status: Acute Asessment and Plan: 1. unsuccessful induction of labor. lie returned to breech 2. Options of continued induction with ECV being done today VS expectant management with return 07/25 for further assessment and possible IOL/ECV reviewed, patient prefers discharge for expectant management 3. Risks of expectant management discussed such as labor with fetus in non cephalic presentation that could allow for prolapse of cord, arm or leg and then need for emergent section. Patient will call with any signs of early labor or if SROM occurs. 4. Dr. Albert reviewed all risks, benefits and alternatives to this plan including section and possible repeat ECV and IOL 5. Will discharge to home this morning. JORGE (2) Unstable lie of fetus, antepartum: Status: Acute Asessment and Plan: 1. repeat POCUS exam this morning, breech then transverse again. Discharge Plan Disposition Patient Disposition: Home Condition: Good Discharge Details Reason For Visit: Breech Admit Date/Time: 07/19/22 06:00 Admit Provider: Mirella Albert Attending Provider: Mirella Albert [facility] Hospital Course: On arrival for planned ECV and induction, presentation was cephalic. /-2. Patient opted to remain for cervical ripening and induction. She received pitocin and then misoprostol 50 mcg PO X 2 with last dose at 0500 today. Baby remained cephalic by US and Morales's until 0745 assessment 07/20 when US confirmed breech presentation. Decision through collaborative consultation with patient, , CNM and Dr. Albert to discharge not in l abor and return for further assessment on 07/25 or if she believes she may be in early labor or SROM. Patient prefer not to continue today with induction process and prefers to avoid section if possible. They are aware of risk for prolapse of cord, arm or leg if SROM or active labor and that that can be emergent and possible harm and will call with any early signs of labor. FHR tracing has been CAT I and reassuring. Home Meds and New Rx's Prescriptions: Continued prenat.vits,jil,ugg-[id number] tablet 1 tab PO DAILY zinc gluconate 50 mg tablet 50 mg PO DAILY magnesium 250 mg tablet 250 mg PO DAILY PRN cholecalciferol (vitamin D3) 100 mcg (4,000 unit) capsule 1,000 unit PO PRN Senna Plus 8.6-50 mg capsule 1 tab-cap PO .COMPLEX PRN Rx Instructions: 1 tab-cap PO every other day; PRN; ascorbate calcium (vitamin C) 500 mg tablet 1 g PO DAILY PRN loratadine 10 mg tablet 10 mg PO DAILY (DME) lancets [FreeStyle Lancets] 28 gauge misc See Rx Instructions .Route Qty: 100 0RF Rx Instructions: 4 times daily (DME) FreeStyle Lite Strips Strip See Rx Instructions .Route Qty: 100 0RF Rx Instructions: 4 times daily Discharge Instructions Activity:: Activity as Tolerated Equipment/Supplies:: No Equipment Needed Diet:: As Tolerated Discharge Orders Discharge Orders: Discharge Order (Routine); Ordered 07/20/22 Ordered By: Irina Salas OB:DS Summary Contraception Discussed Contraception Discussed: No (antepartum patient), Status at Discharge Functional status at discharge: independent ambulation Overall status at discharge: patient is back to baseline Mental Status: mental status grossly normal Speech and Movement: speech and movement normal Mood: congruent mood Affect: normal affect Time Spent with Patient providing and/or coordinating discharge services: Greater than 30 minutes Specific discharge activities: counseling by parts data writer and Dr. Albert about options of expectant management VS continued attempts to allow for induction of labor with unstable lie. Patient counseled on importance of calling for assessment with early labor or SROM immediately. Hospital Course 1. cephalic presentation on arrival, lead to induction of labor with pitocin and misoprostol 50 mcg X 2 doses without active labor ensuing, patient slept through contractions. 2. POCUS exam am of 07/20 indicated breech presentation again. Decision to stop induction and allow for discharge to home made. 3. Patient will call to be seen urgently with ROM and or signs of labor or will return 07/25 for further planning of care and assessment per consultation with Dr. Albert. Exam Physical Exam Vital signs: Temp Pulse Resp BP 98.1 F 85 18 146/87 H 07/20/22 05:12 07/20/22 07:51 07/19/22 22:34 07/20/22 07:51 Vital Signs Reviewed: Yes Narrative: repeat VS Constitutional Constitutional: no acute distress HEENT Exam HEENT Exam: Normal Neck Exam Neck Exam: Normal (visual exam) Respiratory Exam Respiratory Exam: Normal Cardiovascular Exam Cardiovascular Exam: Normal (BP elevated this morning after discussion of breech, repeat) Abdominal Exam Abdomen: Other ( lie, breech then transverse) Rectal Exam Rectal Exam: Not Done Exam Patient deferred: external exam and perineal exam Extremities Exam Extremity Exam: Normal (varicosities) Back/Spine/Pelvis Exam Back Exam: Not Done Skin Exam Skin Exam: Normal Neurological Exam Neurological Exam: Normal Psychiatric Exam Psychiatric Exam: Normal PFSH All Active Problems Encounter for planned induction of labor (Acute) Unstable lie of fetus, antepartum (Acute) History of macrosomia in infant in prior , currently (Acute) Maternal varicella, non-immune (Acute) BMI 31.0-31.9,adult (Acute) (Acute) Rh negative state in antepartum period (Acute) Medical History 33 weeks gestation of Biliary colic Breech presentation Family history of hypothyroidism Ingrown left big toenail Ingrown nail of great toe of right foot Leukocytosis Low TSH level resolved on repeat TSH (during ) Missed menses Premature uterine contractions Right lower quadrant pain Surgical History Hx of cholecystectomy [place] teeth removed Family History Mother Thyroid disorder hypothyroid History of hysterectomy for benign disease fibroids Hx laparoscopic cholecystectomy Preeclampsia Gallbladder disease Sister Raynaud's disease Thyroid disorder hypothyroid, biopsy taken Preeclampsia Maternal Grandmother Hypertension Parkinson's disease Maternal Grandfather Hypertension Myocardial infarction Paternal Grandmother Diabetes Hypertension Breast cancer Paternal Grandfather Hx of cholecystectomy Brother Liver disease Father Gallbladder disease Sister No problems noted. Sister No problems noted. Brother No problems noted. Brother Hypothyroid Sister No problems noted. Daughter No problems noted. Social History Smoking/Tobacco Use Status: Never Second Hand Exposure: Yes Smoking risk assessment performed?: Yes Alcohol Intake: current Alcohol Intake frequency: holidays/special occasions only Details: social, 1x/mos. w/o use w/ knowledge of . Drug use: Never Substance use type: does not use Adopted: No Caregiver/Support person: No Foster care: No Household members: spouse and children Housing: house Number of Children: 0 Communication Needs: Corrective Lenses Do you need help understanding health information?: Never current occupation: nurse md primary care. Pets and animals: Yes Pets and animals: dog(s) Sexually active: Yes Current gender identity: female What is your relationship status?: How often do you talk on the phone with friends or family?: three or more times per week Do you belong to any clubs or organized social groups?: yes Panel score (0-1 are the most socially isolated patients): 3 What type of physical activity do you participate in: walking, weight lifting and other Sadaf/Temple: Other Special sadaf needs: No Agree to transfusion: Yes Seatbelt use: always Helmet use: Yes (not w/ bicycle, enc. to use at all times.) Helmet use: sometimes Drive intox or ride w/intox auto carrier driver: No Water heater temp set <120 deg: No (unknown, will check.) Working smoke detector in home: Yes Fire extinguisher in home: Yes Carbon monox detector in home: Yes Firearms in home: Yes (yes,) Do you feel safe at home: Yes Do you feel safe in your relationship?: Yes Victim of physical abuse: No Victim of emotional abuse: No Victim of sexual abuse: No Female Reproductive History Menstrual Age of Menarche: 13 Duration of menses: 3-5 days control method: none History History 4 Para 3 Hx # Term Pregnancies 3 Multiple births 0 Hx # Pregnancies 0 Ectopic pregnancies 0 AB induced 0 Hx Number of Living Children 3 AB spontaneous 0 Past Pregnancies Del. Date GA/Weeks # Preg Succ Route Wgt Sex Labor Lgth Anesth esia Location [facility] 09/14/18 41 No vaginal 9 lb 3 oz Female ashley Carr CNM 11/07/19 39 No vaginal 8 lb 9 oz Male 24 hours ashley Powers CNM 02/08/21 41 No Yes vaginal 8 lb 12.03 oz Female 8 hours MICHELL Hollingsworth Delivery Date: 09/14/18 Last Updated by: Yana Blake IOL for postdates and PROM, prolonged labor> 20 hrs, pit aug, epidural Delivery Date: 11/07/19 Last Updated by: Yana Blake IOL for unstable lie, epidural, had decreased FHT with bright red bleeding right before delivery, tight nuchal cord, first degree Delivery Date: 02/08/21 Last Updated by: Irina Powers CNM Spontaneous labor, Tub . DS: Data Vitals/I&O Vitals and I&O: Vital Signs Temperature 98.1 F 07/20/22 05:12 Temperature Source Oral 07/20/22 05:12 Pulse 85 07/20/22 07:51 Pulse Rhythm Regular 07/19/22 20:01 Respiratory Rate 18 07/19/22 22:34 Blood Pressure 146/87 H 07/20/22 07:51 Blood Pressure Mean 99 07/20/22 05:12 Oxygen Delivery Method Room Air 07/19/22 12:46 Oxygen Flow Rate 0 07/19/22 12:46 Pain Level 3 07/19/22 20:01 Comment Pt is sleeping 07/20/22 01:00 Intake & Output 07/19/22 07/19/22 07/20/22 11:59 23:59 11:59 Intake Total 1567.550 / 1567.550 Output Total 425 / 425 Balance 1142.550 / 1142.550 Weight 197 lb Intake: IV 1117.550 / 1117.550 Oral 450 / 450 Output: Urine 425 / 425 Other: Urine Color Pale Yellow Data Completed and Pending Labs on day of discharge: Labs from last 24 hours 07/19/22 07/19/22 07/19/22 Unknown 11:42 11:00 WBC Cancelled RBC Cancelled Hgb Cancelled Hct Cancelled MCV Cancelled MCH Cancelled MCHC Cancelled RDW Cancelled Plt Count Cancelled MPV Cancelled COVID-19 Source Cancelled SARS-CoV-2 (PCR) Cancelled Patient ABO/Rh O Negative Antibody Screen POSITIVE Antibody Identification Anti-D 07/19/22 11:00 WBC 12.23 H RBC 4.52 Hgb 13.6 Hct 40.6 MCV 90 MCH 30.1 MCHC 33.5 RDW 14.8 H Plt Count 267 MPV 11.3 H COVID-19 Source SARS-CoV-2 (PCR) Patient ABO/Rh Antibody Screen Antibody Identification
--- NOTE | 2022-07-20 09:20 | W.PM.OBNL1 ---
Date of service: 07/20/22 Time of Service: 09:00 Informed Consent Informed Consent: Induction of Labor and Risk,Benefits,Alternatives Discussed Pelvic Exam Comments: VE deferred Contractions Monitor Mode: External Contraction Frequency(min): 2-5 Contraction Duration(sec): 30-50 Intensity: Mild Fetus A Monitor: External (US) Heart Rate Baseline: 150 Variability: Moderate (6-25 BPM) Categories: Category I Accelerations: Absent Decelerations: None Amniotic Membrane Status: Intact Assessment and Plan Assessment and plan (1) Elevated blood pressure affecting in third trimester, antepartum: Status: Acute Assessment and plan: 1. prior to discharge it was noted that BP was elevated and plan to do further BP evaluations and pre-eclampsia labs is made. 2. Report given to Irina Powers CNM who will assume care at this time. KH Objective Abnormal lab results 07/19/22 Range/Units 11:00 WBC 12.23 H (4.4-10.8) 10^3/uL RDW 14.8 H (11.7-14.6) % MPV 11.3 H (8.0-11.0) fL Temp Pulse Resp BP 98.1 F 79 18 144/84 H 07/20/22 05:12 07/20/22 09:13 07/19/22 22:34 07/20/22 09:13 Laboratory Results WBC Cancelled 07/19/22 Unknown RBC Cancelled 07/19/22 Unknown Hgb Cancelled 07/19/22 Unknown Hct Cancelled 07/19/22 Unknown MCV Cancelled 07/19/22 Unknown MCH Cancelled 07/19/22 Unknown MCHC Cancelled 07/19/22 Unknown RDW Cancelled 07/19/22 Unknown Plt Count Cancelled 07/19/22 Unknown MPV Cancelled 07/19/22 Unknown COVID-19 Source Cancelled 07/19/22 11:42 SARS-CoV-2 (PCR) Cancelled 07/19/22 11:42 Patient ABO/Rh O Negative 07/19/22 11:00 Antibody Screen POSITIVE 07/19/22 11:00 Antibody Identification Anti-D 07/19/22 11:00 Subjective Interval history since last seen: Gila is planning discharge to home this morning to return for repeat assessment in either labor or by 07/25/22 but at time of discharge planning BP was elevated 146/87 and repeat 144/84. She denies JULIO, visual changes or epigastric pain. Will remain for further BP evaluation with pre-eclampsia labs and report is given to Irina Powers CNM in relation to need for further evaluation prior to discharge as she will be assuming care at this time. KH Results Hemoglobin/Hematocrit: Hgb Cancelled 07/19/22 Unknown Hct Cancelled 07/19/22 Unknown Abnormal Lab Findings: Abnormal Labs 07/19/22 11:00 WBC 12.23 H RDW 14.8 H MPV 11.3 H
[2022-07-20 09:46] LABS: HCT 37.7 % (36.0-46.0); HGB 12.6 g/dL (11.2-15.7); MCH 30.1 pg (27.0-33.0); MCHC 33.4 % (32.0-36.0); MCV 90 fL (80-95); MPV 11.8 fL (8.0-11.0); Platelet Count 213 10^3/uL (130-400); RBC 4.19 10^6/uL (3.93-5.22); RDW 14.8 % (11.7-14.6); RDW-SD 48.7 fL; WBC 8.97 10^3/uL (4.4-10.8)
[2022-07-20 10:10] LABS: ALT 13 U/L (14-59); AST 13 U/L (15-37); Albumin 2.3 g/dL (3.4-5.0); Alkaline Phosphatase 191 U/L (46-116); Anion Gap 7.5 mmol/L (3-11); BUN 6 mg/dL (7-18); Bilirubin, Total 0.3 mg/dL (0.2-1.0); CO2 22.5 mmol/L (21.0-32.0); CREATININE 0.6 mg/dL (0.55-1.02); Calcium 8.6 mg/dL (8.5-10.1); Chloride 106 mmol/L (98-107); Estimated GFR 123.76 (mL/min/1.73m2); Glucose 121 mg/dL (74-106); Potassium 3.5 mmol/L (3.5-5.1); Sodium 136 mmol/L (136-145); Total Protein 6.1 g/dL (6.4-8.2)
[2022-07-20 11:31] LABS: COMMENT (LAB VIEW ONLY) 58.75 mg/dL; Prot/Crea Ur Ratio 0.32
--- NOTE | 2022-07-20 12:40 | W.PM.OBNL1 ---
Date of service: 07/20/22 Time of Service: 12:41 Informed Consent Informed Consent: Induction of Labor and Risk,Benefits,Alternatives Discussed Pelvic Exam Dilation: 0.5 Effacement (%): 25 station: -4 Cervix Position: posterior Consistency: soft Contractions Monitor Mode: External Contraction Frequency(min): irreg, every 2-5 Contraction Duration(sec): 50-60 Intensity: Mild Fetus A Monitor: External (US) Heart Rate Baseline: 140 Presentation: Vertex Variability: Moderate (6-25 BPM) Categories: Category I Accelerations: 15 X 15 Assessment Note: Continuous monitoring due to few accelerations noted. The baby was active and the monitor was removed after accelerations seen. Assessment and Plan Assessment and plan (1) Elevated blood pressure affecting in third trimester, antepartum: Status: Acute Assessment and plan: BP 141/84 at 1200. Discussed 24 hour urine with Gila. Will continue to observe (2) Unstable lie of fetus, antepartum: Status: Acute Assessment and plan: The baby remains breech by Margarita. Gila complains of fatigue and the monitor was removed so she can rest. Will reassess for cervical change after she and her awake. Objective Abnormal lab results 07/20/22 07/20/22 Range/Units 09:35 09:35 RDW 14.8 H (11.7-14.6) % MPV 11.8 H (8.0-11.0) fL BUN 6 L (7-18) mg/dL Glucose 121 H (74-106) mg/dL AST 13 L (15-37) U/L ALT 13 L (14-59) U/L Alkaline Phosphatase 191 H (46-116) U/L Total Protein 6.1 L (6.4-8.2) g/dL Albumin 2.3 L (3.4-5.0) g/dL Temp Pulse Resp BP 98.1 F 79 18 141/84 H 07/20/22 05:12 07/20/22 12:01 07/19/22 22:34 07/20/22 12:01 Laboratory Results WBC 8.97 10^3/uL (4.4-10.8) 07/20/22 09:35 RBC 4.19 10^6/uL (3.93-5.22) 07/20/22 09:35 Hgb 12.6 g/dL (11.2-15.7) 07/20/22 09:35 Hct 37.7 % (36.0-46.0) 07/20/22 09:35 MCV 90 fL (80-95) 07/20/22 09:35 MCH 30.1 pg (27.0-33.0) 07/20/22 09:35 MCHC 33.4 % (32.0-36.0) 07/20/22 09:35 RDW 14.8 % (11.7-14.6) H 07/20/22 09:35 Plt Count 213 10^3/uL (130-400) 07/20/22 09:35 MPV 11.8 fL (8.0-11.0) H 07/20/22 09:35 Sodium 136 mmol/L (136-145) 07/20/22 09:35 Potassium 3.5 mmol/L (3.5-5.1) 07/20/22 09:35 Chloride 106 mmol/L (98-107) 07/20/22 09:35 Carbon Dioxide 22.5 mmol/L (21.0-32.0) 07/20/22 09:35 Anion Gap 7.5 mmol/L (3-11) 07/20/22 09:35 BUN 6 mg/dL (7-18) L 07/20/22 09:35 Creatinine 0.6 mg/dL (0.55-1.02) 07/20/22 09:35 Est GFR (CKD-EPI 2020) 123.76 (mL/min/1.73m2) 07/20/22 09:35 Glucose 121 mg/dL (74-106) H 07/20/22 09:35 Calcium 8.6 mg/dL (8.5-10.1) 07/20/22 09:35 Total Bilirubin 0.3 mg/dL (0.2-1.0) 07/20/22 09:35 AST 13 U/L (15-37) L 07/20/22 09:35 ALT 13 U/L (14-59) L 07/20/22 09:35 Alkaline Phosphatase 191 U/L (46-116) H 07/20/22 09:35 Total Protein 6.1 g/dL (6.4-8.2) L 07/20/22 09:35 Albumin 2.3 g/dL (3.4-5.0) L 07/20/22 09:35 Ur Random Creatinine 58.75 mg/dL 07/20/22 10:55 U Random Total Protein 19.0 mg/dL 07/20/22 10:55 U [place] Prot/Creat Ratio 0.32 07/20/22 10:55 COVID-19 Source Cancelled 07/19/22 11:42 SARS-CoV-2 (PCR) Cancelled 07/19/22 11:42 Patient ABO/Rh O Negative 07/19/22 11:00 Antibody Screen POSITIVE 07/19/22 11:00 Antibody Identification Anti-D 07/19/22 11:00 Subjective Interval history since last seen: BP elevated 140s/80s. preeclampsia labs sent. Normal serum labs with protein /creatinene 0.32. Trace of edema. Gila denies other signs of preeclampsia. Results Hemoglobin/Hematocrit: Hgb 12.6 g/dL (11.2-15.7) 07/20/22 09:35 Hct 37.7 % (36.0-46.0) 07/20/22 09:35 Abnormal Lab Findings: Abnormal Labs 07/19/22 07/20/22 07/20/22 11:00 09:35 09:35 WBC 12.23 H RDW 14.8 H 14.8 H MPV 11.3 H 11.8 H BUN 6 L Glucose 121 H AST 13 L ALT 13 L Alkaline Phosphatase 191 H Total Protein 6.1 L Albumin 2.3 L
[2022-07-20] MEDS: Acetaminophen 325 MG TAB 650 MG PO (14:22)
[2022-07-20 14:45] LABS: Lab Add On Test DONE
[2022-07-20 16:23] LABS: TSH (W/Ref FT4) 0.77 uIU/mL (0.36-3.74)
--- NOTE | 2022-07-20 16:34 | DSE_ITS ---
Date of service: 07/20/22 Time of Service: 16:34 DS: Diagnosis Discharge Diagnosis (1) Elevated blood pressure affecting in third trimester, antepartum: Status: Acute Asessment and Plan: I informed Gila of elevated protein/ creatinene ratio. She was instructed to complete 24 hour urine and retrn in 2 days for BP check and 24 hour urine. Gila reported fatigue and that her contractions felt stronger. She took a nap and awoke reporting that the contractions were now milder. Signs of labor reviewed. Instructed to return with headache unresponsive to tylenol and rest of increasing edema. BP at discharge was 155/75 and 148/78 (2) Unstable lie of fetus, antepartum: Status: Acute Asessment and Plan: Baby was breech by Margarita on discharge. Will reassess presentation in 2 days. This plan was reviewed with Dr. Albert. Discharge Plan Disposition Patient Disposition: Home Condition: Fair Discharge Details Reason For Visit: Breech Admit Date/Time: 07/19/22 06:00 Admit Provider: Mirella Albert Attending Provider: Mirella Albert Primary Care Provider: [facility] Course Hospital Course: On arrival for planned ECV and induction, presentation was cephalic. /2. Patient opted to remain for cervical ripening and induction. She received pitocin and then misoprostol 50 mcg PO X 2 with last dose at 0500 today. Baby remained cephalic by US and Morales's until 0745 assessment 07/20 when US confirmed breech presentation. Decision through collaborative consultation with patient, , CNM and Dr. Albert to discharge not in labor and return for further assessment on 07/25 or if she believes she may be in early labor or SROM. Patient prefer not to continue today with induction process and prefers to avoid section if possible. They are aware of risk for prolapse of cord, arm or leg if SROM or active labor and that that can be emergent and possible harm and will call with any early signs of labor. FHR tracing has been CAT I and reassuring. Home Meds and New Rx's Prescriptions: Continued prenat.vits,jil,fvo-iopp-yjqho tablet 1 tab PO DAILY zinc gluconate 50 mg tablet 50 mg PO DAILY magnesium 250 mg tablet 250 mg PO DAILY PRN cholecalciferol (vitamin D3) 100 mcg (4,000 unit) capsule 1,000 unit PO PRN Senna Plus 8.6-50 mg capsule 1 tab-cap PO .COMPLEX PRN Rx Instructions: 1 tab-cap PO every other day; PRN; ascorbate calcium (vitamin C) 500 mg tablet 1 g PO DAILY PRN loratadine 10 mg tablet 10 mg PO DAILY (DME) lancets [FreeStyle Lancets] 28 gauge misc See Rx Instructions .Route Qty: 100 0RF Rx Instructions: 4 times daily (DME) FreeStyle Lite Strips Strip See Rx Instructions .Route Qty: 100 0RF Rx Instructions: 4 times daily Discharge Instructions Instructions: Preeclampsia During (DC) Activity:: Activity as Tolerated Equipment/Supplies:: No Equipment Needed Diet:: As Tolerated Discharge Orders Discharge Orders: Discharge Order (Routine); Ordered 07/20/22 Ordered By: Irina Salas Discharge Data Discharge Date/Time-TO BE ENTERED AT DEPARTURE: 07/20/22 14:55 OB:DS Summary Contraception Discussed Contraception Discussed: No, Status at Discharge Functional status at discharge: independent ambulation Overall status at discharge: patient is not back to baseline (hypertension ) Mental Status: mental status grossly normal Speech and Movement: speech and movement normal Mood: congruent mood Affect: normal affect Exam Physical Exam Vital signs: Temp Pulse Resp BP 98.4 F 76 18 148/78 H 07/20/22 07:51 07/20/22 14:05 07/19/22 22:34 07/20/22 14:05 Respiratory Exam Respiratory Exam: Normal Cardiovascular Exam Cardiovascular Exam: Normal Exam Comments: cervix 0.5 cms./-4 and soft/25% effaced Extremities Exam Extremity Exam: Edema (trace) Skin Exam Skin Exam: Normal Psychiatric Exam Psychiatric Exam: Normal PFSH All Active Problems (Updated 07/20/22 @ 09:25 by Irina Salas CNM) Elevated blood pressure affecting in third trimester, antepartum (Acute) Encounter for planned induction of labor (Acute) Unstable lie of fetus, antepartum (Acute) History of macrosomia in infant in prior , currently (Acute) Maternal varicella, non-immune (Acute) BMI 31.0-31.9,adult (Acute) (Acute) Rh negative state in antepartum period (Acute) Medical History 33 weeks gestation of Biliary colic Breech presentation Family history of hypothyroidism Ingrown left big toenail Ingrown nail of great toe of right foot Leukocytosis Low TSH level resolved on repeat TSH (during ) Missed menses Premature uterine contractions Right lower quadrant pain Surgical History Hx of cholecystectomy [place] teeth removed Family History Mother Thyroid disorder hypothyroid History of hysterectomy for benign disease fibroids Hx laparoscopic cholecystectomy Preeclampsia Gallbladder disease Sister Raynaud's disease Thyroid disorder hypothyroid, biopsy taken Preeclampsia Maternal Grandmother Hypertension Parkinson's disease Maternal Grandfather Hypertension Myocardial infarction Paternal Grandmother Diabetes Hypertension Breast cancer Paternal Grandfather Hx of cholecystectomy Brother Liver disease Father Gallbladder disease Sister No problems noted. Sister No problems noted. Brother No problems noted. Brother Hypothyroid Sister No problems noted. Daughter No problems noted. Social History Smoking/Tobacco Use Status: Never Second Hand Exposure: Yes Smoking risk assessment performed?: Yes Alcohol Intake: current Alcohol Intake frequency: holidays/special occasions only Details: social, 1x/mos. w/o use w/ knowledge of . Drug use: Never Substance use type: does not use Adopted: No Caregiver/Support person: No Foster care: No Household members: spouse and children Housing: house Number of Children: 0 Communication Needs: Corrective Lenses Do you need help understanding health information?: Never current occupation: nurse [employer]. Pets and animals: Yes Pets and animals: dog(s) Sexually active: Yes Current gender identity: female What is your relationship status?: How often do you talk on the phone with friends or family?: three or more times per week Do you belong to any clubs or organized social groups?: yes Panel score (0-1 are the most socially isolated patients): 3 What type of physical activity do you participate in: walking, weight lifting and other Sadaf/Hoahaoism: Other Special sadaf needs: No Agree to transfusion: Yes Seatbelt use: always Helmet use: Yes (not w/ bicycle, enc. to use at all times.) Helmet use: sometimes Drive intox or ride w/intox otr hazmat company driver: No Water heater temp set <120 deg: No (unknown, will check.) Working smoke detector in home: Yes Fire extinguisher in home: Yes Carbon monox detector in home: Yes Firearms in home: Yes (yes,) Do you feel safe at home: Yes Do you feel safe in your relationship?: Yes Victim of physical abuse: No Victim of emotional abuse: No Victim of sexual abuse: No Female Reproductive History Menstrual Age of Menarche: 13 Duration of menses: 3-5 days control method: none History History 4 Para 3 Hx # Term Pregnancies 3 Multiple births 0 Hx # Pregnancies 0 Ectopic pregnancies 0 AB induced 0 Hx Number of Living Children 3 AB spontaneous 0 Past Pregnancies Del. Date GA/Weeks # Preg Succ Route Wgt Sex Labor Lgth Anesth esia Location Prov [facility] 09/14/18 41 No vaginal 9 lb 3 oz Female ashley Carr CNM 11/07/19 39 No vaginal 8 lb 9 oz Male 24 hours [facility] Froylan Powers CNM 02/08/21 41 No Yes vaginal 8 lb 12.03 oz Female 8 hours MICHELL Hollingsworth Delivery Date: 09/14/18 Last Updated by: Yana Blake IOL for postdates and PROM, prolonged labor> 20 hrs, pit aug, epidural Delivery Date: 11/07/19 Last Updated by: Yana Blake IOL for unstable lie, epidural, had decreased FHT with bright red bleeding right before delivery, tight nuchal cord, first degree Delivery Date: 02/08/21 Last Updated by: Irina Powers CNM Spontaneous labor, Tub . DS: Data Vitals/I&O Vitals and I&O: Vital Signs Temperature 98.4 F 07/20/22 07:51 Temperature Source Oral 07/20/22 07:51 Pulse 76 07/20/22 14:05 Pulse Rhythm Regular 07/20/22 09:44 Respiratory Rate 18 07/19/22 22:34 Blood Pressure 148/78 H 07/20/22 14:05 Blood Pressure Mean 99 07/20/22 05:12 Oxygen Delivery Method Room Air 07/19/22 12:46 Oxygen Flow Rate 0 07/19/22 12:46 Pain Level 3 07/19/22 20:01 Comment Pt is sleeping 07/20/22 01:00 Intake & Output 07/19/22 07/20/22 07/20/22 23:59 11:59 23:59 Intake Total 1567.550 / 1567.550 Output Total 425 / 425 Balance 1142.550 / 1142.550 Weight 197 lb Intake: IV 1117.550 / 1117.550 Oral 450 / 450 Output: Urine 425 / 425 Other: Urine Color Pale Pale Yellow Yellow Data Completed and Pending Labs on day of discharge: Labs from last 24 hours 07/20/22 07/20/22 07/20/22 12:51 10:55 09:35 WBC RBC Hgb Hct MCV MCH MCHC RDW Plt Count MPV Sodium Potassium Chloride Carbon Dioxide Anion Gap BUN Creatinine Est GFR (CKD-EPI 2020) Glucose Calcium Total Bilirubin AST ALT Alkaline Phosphatase Total Protein Albumin TSH Cancelled 0.77 Ur Random Creatinine 58.75 U Random Total Protein 19.0 U [place] Prot/Creat Ratio 0.32 Add-On Test Request 07/20/22 07/20/22 07/20/22 09:35 09:35 09:35 WBC 8.97 RBC 4.19 Hgb 12.6 Hct 37.7 MCV 90 MCH 30.1 MCHC 33.4 RDW 14.8 H Plt Count 213 MPV 11.8 H Sodium 136 Potassium 3.5 Chloride 106 Carbon Dioxide 22.5 Anion Gap 7.5 BUN 6 L Creatinine 0.6 Est GFR (CKD-EPI 2020) 123.76 Glucose 121 H Calcium 8.6 Total Bilirubin 0.3 AST 13 L ALT 13 L Alkaline Phosphatase 191 H Total Protein 6.1 L Albumin 2.3 L TSH Ur Random Creatinine U Random Total Protein U [place] Prot/Creat Ratio Add-On Test Request DONE
== END 2022-07-20 14:55 | disposition home or self-care (01) | DRG 832 ==
PROVIDERS: Advanced Practice Midwife; Admitting Provider Obstetrics & Gynecology; PCP Nurse Practitioner Family; Visit Provider Obstetrics & Gynecology
DX: O32.0XX0 Maternal care for unstable lie, not applicable or unspecified; O16.3 Unspecified maternal hypertension, third trimester; O36.0930 Maternal care for other rhesus isoimmunization, third trimester, not applicable or unspecified; Z3A.38 38 weeks gestation of pregnancy
CPT/HCPCS: 36415; 80053; 85027; 86850; 86900; 86901; 87635; 82565; 84156; 84443; 86870; J3490

== ENCOUNTER 2022-07-22 07:13 | Outpatient (CLI) | payer MEDICAID, SELFPAY ==
[2022-07-22 10:27] VITALS: BP 136/86; PULSE 72; TEMP 37.1
[2022-07-22 10:36] VITALS: BP 136/86; PULSE 72
[2022-07-22 11:12] LABS: COMMENT (LAB VIEW ONLY) 33.14 mg/dL; PROTEIN 7.5 mg/dL; Prot/Crea Ur Ratio 0.22
--- NOTE | 2022-07-22 11:52 | W.OBNST ---
Date of service: 07/22/22 Time of Service: 11:52 NST Evaluation Reason for NST Reasons for Nonstress Test: GESTATIONAL HYPERTENSION Gestational Age Gestational Age in Weeks and Days: 39 Weeks and 0Days Test and Monitor Explained Test/Monitor Explained: Test Explained, Monitor Explained and Patient Verbalized Understanding Vital Signs Blood Pressure: 136/86 Pulse: 72 Temperature: 98.8 F Urine Results Urine Protein: Negative Urine Ketones: Negative Urine Glucose: Negative Urine Blood: Negative NST Information Date on Monitor: 07/22/22 Time on Monitor: 10:24 NST Interventions: PO Hydration NST Evaluation Patient States Movement: Present FHR Baseline: 150 Variability: Moderate 6-25 bpm Accelerations: 10x10 Decelerations: None NST Results: Reactive Note Ultrasound Done: Presentation Presentation Results: vertex by US Coding for Presentation w/NST: Completed Exam. NST Note Note: Travis presents for NST due to elevated BP and proteinuria at previous admission. Travis believes it may have been stress related. Urine dip neg for protein today and protein creatinene ratio sent. Travis collected a 24 hour urine and delivered it to the lab but it was rejected due to incorrect labeling. Induction of labor was offered today. travis is undecided and she would like to go for a walk and think it over and will notify us. Protein creatinene ratio is 0.22 today. NST Reviewed and Verified by: Irina Powers
[2022-07-22 11:54] VITALS: BP 136/86; PULSE 72; TEMP 37.1
== END 2022-07-22 11:15 | disposition home or self-care (01) ==
LOC: BCD 07:16 → OBS 10:26
PROVIDERS: PCP Nurse Practitioner Family; Visit Provider Advanced Practice Midwife
DX: O14.93 Unspecified pre-eclampsia, third trimester (principal); Z3A.39 39 weeks gestation of pregnancy
CPT/HCPCS: 59025; 82565; 84155; 84156

== ENCOUNTER 2022-07-22 14:08 | Inpatient (IN) | payer MEDICAID, SELFPAY ==
--- NOTE | 2022-07-22 14:46 | W.PM.OBHPL1 ---
Date of service: 07/22/22 Time of Service: 14:47 Assessment and Plan Assessment and plan (1) Encounter for induction of labor: Status: Acute Assessment and plan: Induction methods were reviewed. Gila elects for misoprostol induction of labor. Misoprostol 25 mcg PO per protocol and anticipate (2) Unstable lie of fetus, antepartum: Status: Acute Assessment and plan: Will continue to confirm presentation. OB-HPI Labor/Delivery History of Present Illness Reason for Visit: Induction Chief Complaint: Scheduled Induction of Labor (unstable lie) Indication for Induction: Other (unstable lie); Other. SADA Calculator Estimated Delivery Date Method Current WG Current Estimate 07/29/22 LMP (Certain) 39w 0d Other Estimates 07/31/22 Ultrasound #1 38w 5d Comments: Induction of labor was attempted 07/20. The induction was stopped when the baby turned to breech after receiving pitocin and misoprostol x 2. BP was elevated at time of discharge with protein/creatinene 0.32. Gila came in for NST today and BP check. BP was WNL and proein/creatinene 0.22. BOP is now 135/82. The baby was noted to be vertex. IOL today was offered. Gila was undecided about induction so she and her Fabricio went for a walk and had lunch and returns for IOL. History of Present Expected Delivery Route/Plan - CNM ? FOB/ - Fabricio Hoover BB yes to circ Hopes for tub GBS negative @ 33 wks- repeat before 07/16-neg Specific Issues/Plan 1. Unvaccinated against Covid- declines vaccine 2. Prev macrosomia and BMI @ 31; declines early glucola- will test QID x 2 weeks. 3. RH neg - Received rhogam at 28 weeks 4. Hx of low TSH during - TSH with reflex drawn 01/24 TSH-0.04/T4-1.04,repeat thyroid testing every trimester 07/20-TSH 0.77 5. Family history preeclampsia and BMI 31 - offer low dose ASA- declines. 6. Varicella non-immune - offer vaccine post 7. Panorama: low risk x5 male, Second trimester AFP - WNL 8. Declines GTT, will test QID x 2 weeks. 9. Right upper abdominal pain. Transfer[place] [facility] [place] out appendicitis - treated with antibiotics and symptoms subsided. [facility] All Active Problems (Updated 07/22/22 @ 15:16 by Irina Powers CNM) Encounter for induction of labor (Acute) Unstable lie of fetus, antepartum (Acute) History of macrosomia in in prior , currently (Acute) Maternal varicella, non-immune (Acute) BMI 31.0-31.9,adult (Acute) (Acute) Rh negative state in antepartum period (Acute) Medical History 33 weeks gestation of Biliary colic Breech presentation Family history of hypothyroidism Ingrown left big toenail Ingrown nail of great toe of right foot Leukocytosis Low TSH level resolved on repeat TSH (during ) Missed menses Premature uterine contractions Right lower quadrant pain Surgical History Hx of cholecystectomy [place] teeth removed Family History Mother Thyroid disorder hypothyroid History of hysterectomy for benign disease fibroids Hx laparoscopic cholecystectomy Preeclampsia Gallbladder disease Sister Raynaud's disease Thyroid disorder hypothyroid, biopsy taken Preeclampsia Maternal Grandmother Hypertension Parkinson's disease Maternal Grandfather Hypertension Myocardial infarction Paternal Grandmother Diabetes Hypertension Breast cancer Paternal Grandfather Hx of cholecystectomy Brother Liver disease Father Gallbladder disease Sister No problems noted. Sister No problems noted. Brother No problems noted. Brother Hypothyroid Sister No problems noted. Daughter No problems noted. Social History Smoking/Tobacco Use Status: Never Second Hand Exposure: Yes Smoking risk assessment performed?: Yes Alcohol Intake: current Alcohol Intake frequency: holidays/special occasions only Details: social, 1x/mos. w/o use w/ knowledge of . Drug use: Never Substance use type: does not use Adopted: No Caregiver/Support person: No Foster care: No Household members: spouse and children Housing: house Number of Children: 0 Communication Needs: Corrective Lenses Do you need help understanding health information?: Never current occupation: nurse [employer]. Pets and animals: Yes Pets and animals: dog(s) Sexually active: Yes Current gender identity: female What is your relationship status?: How often do you talk on the phone with friends or family?: three or more times per week Do you belong to any clubs or organized social groups?: yes Panel score (0-1 are the most socially isolated patients): 3 What type of physical activity do you participate in: walking, weight lifting and other Sadaf/Spiritism: Other Special sadaf needs: No Agree to transfusion: Yes Seatbelt use: always Helmet use: Yes (not w/ bicycle, enc. to use at all times.) Helmet use: sometimes Drive intox or ride w/intox water taxi driver: No Water heater temp set <120 deg: No (unknown, will check.) Working smoke detector in home: Yes Fire extinguisher in home: Yes Carbon monox detector in home: Yes Firearms in home: Yes (yes,) Do you feel safe at home: Yes Do you feel safe in your relationship?: Yes Victim of physical abuse: No Victim of emotional abuse: No Victim of sexual abuse: No Female Reproductive History Menstrual Age of Menarche: 13 Duration of menses: 3-5 days control method: none History History 4 Para 3 Hx # Term Pregnancies 3 Multiple births 0 Hx # Pregnancies 0 Ectopic pregnancies 0 AB induced 0 Hx Number of Living Children 3 AB spontaneous 0 Past Pregnancies Del. Date GA/Weeks # Preg Succ Route Wgt Sex Labor Lgth Anesthesia Location [facility] 09/14/18 41 No vaginal 9 lb 3 oz Female ashley Hollingsworth CNM 11/07/19 39 No vaginal 8 lb 9 oz Male 24 hours ashley Powers CNM 02/08/21 41 No Yes vaginal 8 lb 12.03 oz Female 8 hours MICHELL Hollingsworth Delivery Date: 09/14/18 Last Updated by: Yana Blake IOL for postdates and PROM, prolonged labor> 20 hrs, pit aug, epidural Delivery Date: 11/07/19 Last Updated by: Yana Blake IOL for unstable lie, epidural, had decreased FHT with bright red bleeding right before delivery, tight nuchal cord, first degree Delivery Date: 02/08/21 Last Updated by: Irina Powers CNM Spontaneous labor, Tub . Meds Allergies and Home Medications Allergies Allergy/AdvReac Type Severity Reaction Status Date / Time house dust Allergy Mild Verified 07/19/22 12:01 jaison Allergy Hives Verified 07/19/22 12:01 soap Allergy Blisters Verified 07/19/22 12:01 on hands pollen Allergy Intermediate Uncoded 07/19/22 12:01 Home Medications Medication Instructions Recorded Confirmed Type prenat.vits,jil,zfj-wamu-ljpxo 1 tab PO DAILY 02/05/18 07/22/22 History magnesium 250 mg tablet 250 mg PO DAILY PRN 09/28/18 07/22/22 History cholecalciferol (vitamin D3) 100 1,000 unit PO PRN 07/26/19 07/22/22 History mcg (4,000 unit) capsule sennosides 8.6 mg-docusate sodium 1 tab-cap PO .COMPLEX PRN 10/28/19 07/22/22 History 50 mg capsule (Senna Plus) ascorbate calcium (vitamin C) 500 1 g PO DAILY PRN 01/25/21 07/22/22 History mg tablet loratadine 10 mg tablet 10 mg PO DAILY 03/23/21 07/22/22 History blood sugar diagnostic (FreeStyle #100 ea 02/14/22 07/22/22 Rx Lite Strips) lancets 28 gauge (FreeStyle #100 ea 02/14/22 07/22/22 Rx Lancets) zinc gluconate 50 mg tablet 50 mg PO DAILY 06/20/22 07/22/22 History Exam Detailed Labor and Delivery Exam Dilation: 1 Effacement (%): 25 station: -3 Cervix position: posterior Consistency: soft Campbell Score: Cervical Points Exam 0 1 2 3 Dilation Closed 1-2cm 3-4 cm 5-6cm Effacement 0-30% 40-50% 60-70% 80% Consistency Firm Medium Soft Station -3 -2 -1,0 +1,+2 Position Posterior Mid Anterior CAMPBELL Score(Cervical Ripeness Score): 3 Amniotic Membrane Status: Intact Monitor Mode: External Contraction Frequency(min): irregular cramping Contraction Duration(sec): 40-60 Contraction Intensity: Mild Fetus A Heart Rate Baseline: 150 Monitor Accelerations: 15 X 15 Monitor Decelerations: None Variability: Moderate (6-25 BPM) Presentation: Vertex Categories: Category I Respiratory Exam Respiratory Exam: Normal Cardiovascular Exam Cardiovascular Exam: Normal Abdominal Exam Abdominal Exam: Normal Exam Exam: Normal Extremities Exam Extremities Exam: Normal Back/Spine/Pelvis Exam Pelvis Adequate: Yes Skin Exam Skin Exam: Normal Psychiatric Exam Psychiatric Exam: Normal Results Results Group Beta Strep: Negative Blood Type: A- Rubella Status: Immune Varicella Immunity: Nonimmune Lab Results: protein creatinene today 0.22 Ultrasound OB Ultrasound for presentation. Indication: confirm vertex Exam complete. Risk Assessment Risk for Shoulder Dystocia Historical/Initial OB: POSITIVE FOR: Pre- BMI>30 and Previous Macrosomia; NEGATIVE FOR: Pelvic Abnormality or Previous Shoulder Dystocia 40 Weeks: NEGATIVE FOR: EFW> 4500 gms, Maternal Weight Gain >40lb or Post Dates Counseling: proven to 9'3 Delivery Plan @ 40 wks: KAREN PATEL Risk for Pre-Eclampsia Date Initiated/Initials: pt advised, she declines at this time 07/13. Yes, if one or more: NEGATIVE FOR: Hx Pre-E/Gest HTN, Chronic HTN, Multiple Gestation, Pre-gestational DM, Renal Disease, Systemic Lupus or APA Syndrome Yes, if 2 or more: POSITIVE FOR: BMI>30 and Mother/Sister w/ Pre-E; NEGATIVE FOR: Nulliparity, Age>= 35 yrs, >10yr btwn pregnancies, ethinicty or Previous IUGR Risk for Post- Hemorrhage Initial: NEGATIVE FOR: Multiple Gestation, Previous PPH, Known Clotting Deficiency, Grand Multiparity or Anticoagulation Date/Initials: 07/19/22 JORGE Risks Reviewed Risks Reviewed Upon Admission: Yes
[2022-07-22 15:17] VITALS: BP 135/82; PULSE 83; RESP 20; TEMP 36.5
[2022-07-22 15:19] VITALS: BP 135/82; PULSE 83
[2022-07-22 15:23] LABS: HGB 11.7 g/dL (11.2-15.7); MCH 29.9 pg (27.0-33.0); MCHC 33.4 % (32.0-36.0); MCV 90 fL (80-95); MPV 11.6 fL (8.0-11.0); Platelet Count 226 10^3/uL (130-400); RBC 3.91 10^6/uL (3.93-5.22); RDW 14.8 % (11.7-14.6); RDW-SD 48.9 fL; WBC 10.57 10^3/uL (4.4-10.8)
[2022-07-22] MEDS: miSOPROStol 25 MCG TAB PO ×2 (15:48→20:29)
[2022-07-22 17:22] VITALS: BP 145/84; PULSE 66
[2022-07-22] MEDS: Magnesium Gluconate 500 MG TAB PO (21:21)
--- NOTE | 2022-07-22 21:35 | W.PM.OBNL1 ---
Date of service: 07/22/22 Time of Service: 21:36 Informed Consent Informed Consent: Induction of Labor Pelvic Exam Dilation: 1 Effacement (%): 25 station: -2 Cervix Position: mid Consistency: soft Contractions Monitor Mode: External Contraction Frequency(min): every 3-5 Contraction Duration(sec): 60 Intensity: Moderate/Strong Fetus A Monitor: External (US) Heart Rate Baseline: 150 Presentation: Vertex Variability: Moderate (6-25 BPM) Categories: Category I Accelerations: 15 X 15 Decelerations: None Amniotic Membrane Status: Intact Assessment and Plan Assessment and plan (1) Encounter for induction of labor: Status: Acute Assessment and plan: Anticipate . Continue misoprostol per protocol. rest encouraged. (2) Unstable lie of fetus, antepartum: Status: Acute Assessment and plan: Will confirm vertex position when appropriate. Objective Abnormal lab results 07/22/22 Range/Units 15:13 RBC 3.91 L (3.93-5.22) 10^6/uL Hct 35.0 L (36.0-46.0) % RDW 14.8 H (11.7-14.6) % MPV 11.6 H (8.0-11.0) fL Temp Pulse Resp BP 97.7 F 66 20 145/84 H 07/22/22 15:17 07/22/22 17:22 07/22/22 15:17 07/22/22 17:22 Laboratory Results WBC 10.57 10^3/uL (4.4-10.8) 07/22/22 15:13 RBC 3.91 10^6/uL (3.93-5.22) L 07/22/22 15:13 Hgb 11.7 g/dL (11.2-15.7) 07/22/22 15:13 Hct 35.0 % (36.0-46.0) L 07/22/22 15:13 MCV 90 fL (80-95) 07/22/22 15:13 MCH 29.9 pg (27.0-33.0) 07/22/22 15:13 MCHC 33.4 % (32.0-36.0) 07/22/22 15:13 RDW 14.8 % (11.7-14.6) H 07/22/22 15:13 Plt Count 226 10^3/uL (130-400) 07/22/22 15:13 MPV 11.6 fL (8.0-11.0) H 07/22/22 15:13 Patient ABO/Rh O Negative 07/22/22 15:13 Antibody Screen NEGATIVE 07/22/22 15:13 Subjective Interval history since last seen: Gila is resting an dexperiencing no discomfort. An abdominal binder is in place. She received second dose of misoprostol 25 mcg PO. Results Hemoglobin/Hematocrit: Hgb 11.7 g/dL (11.2-15.7) 07/22/22 15:13 Hct 35.0 % (36.0-46.0) L 07/22/22 15:13 Abnormal Lab Findings: Abnormal Labs 07/22/22 15:13 RBC 3.91 L Hct 35.0 L RDW 14.8 H MPV 11.6 H
[2022-07-22 22:32] VITALS: BP 132/83; PULSE 75
[2022-07-23] VITALS (11 sets, daily range): BP systolic 123–166; BP diastolic 67–92; PULSE 61–128; RESP 14–18; TEMP 36.8–37; BMI 35.4
[2022-07-23] MEDS: miSOPROStol 25 MCG TAB 50 MCG PO ×2 (00:32→04:35)
[2022-07-23 09:12] LABS: ALT 15 U/L (14-59); AST 16 U/L (15-37); Albumin 2.7 g/dL (3.4-5.0); Alkaline Phosphatase 225 U/L (46-116); Anion Gap 8.7 mmol/L (3-11); BUN 8 mg/dL (7-18); Bilirubin, Total 0.4 mg/dL (0.2-1.0); CO2 23.3 mmol/L (21.0-32.0); CREATININE 0.8 mg/dL (0.55-1.02); Calcium 9.3 mg/dL (8.5-10.1); Chloride 103 mmol/L (98-107); Estimated GFR 101.59 (mL/min/1.73m2); Glucose 101 mg/dL (74-106); Potassium 3.4 mmol/L (3.5-5.1); Sodium 135 mmol/L (136-145); Uric Acid 5.2 mg/dL (2.6-6.0)
[2022-07-23] MEDS: Acetaminophen 325 MG TAB 650 MG PO (09:54)
--- NOTE | 2022-07-23 10:47 | W.PM.OBNL1 ---
Date of service: 07/23/22 Time of Service: 09:00 Informed Consent Informed Consent: Induction of Labor Pelvic Exam Comments: exam deferred Contractions Monitor Mode: External Contraction Frequency(min): every 2-3 Contraction Duration(sec): 40-60 Intensity: Mild/Moderate Fetus A Monitor: External (US) Heart Rate Baseline: 140 Presentation: Breech Variability: Moderate (6-25 BPM) Categories: Category I Accelerations: 15 X 15 Decelerations: None Amniotic Membrane Status: Intact Assessment and Plan Assessment and plan (1) Unstable lie of fetus, antepartum: Status: Acute Assessment and plan: Options were reviewed with Gila including external version and continuation of induction, expectant management with the possibility of urgent if active spontaneous labor occurs or . Gila expressed concern that a was inevitable. She chose to remain here at the center and try positon changes to see if the baby turns spontaneously today. She was placed in trendelenberg and Ice pack applied to the fundus. Patient's status and pllan reviewed with Dr Jorge who agrees. CMP and uric acid drawn. Objective Abnormal lab results 07/22/22 07/23/22 Range/Units 15:13 08:36 RBC 3.91 L (3.93-5.22) 10^6/uL Hct 35.0 L (36.0-46.0) % RDW 14.8 H (11.7-14.6) % MPV 11.6 H (8.0-11.0) fL Sodium 135 L (136-145) mmol/L Potassium 3.4 L (3.5-5.1) mmol/L Alkaline Phosphatase 225 H (46-116) U/L Albumin 2.7 L (3.4-5.0) g/dL Temp Pulse Resp BP 97.7 F 67 20 140/85 07/22/22 15:17 07/23/22 09:32 07/22/22 15:17 07/23/22 09:32 Laboratory Results WBC 10.57 10^3/uL (4.4-10.8) 07/22/22 15:13 RBC 3.91 10^6/uL (3.93-5.22) L 07/22/22 15:13 Hgb 11.7 g/dL (11.2-15.7) 07/22/22 15:13 Hct 35.0 % (36.0-46.0) L 07/22/22 15:13 MCV 90 fL (80-95) 07/22/22 15:13 MCH 29.9 pg (27.0-33.0) 07/22/22 15:13 MCHC 33.4 % (32.0-36.0) 07/22/22 15:13 RDW 14.8 % (11.7-14.6) H 07/22/22 15:13 Plt Count 226 10^3/uL (130-400) 07/22/22 15:13 MPV 11.6 fL (8.0-11.0) H 07/22/22 15:13 Sodium 135 mmol/L (136-145) L 07/23/22 08:36 Potassium 3.4 mmol/L (3.5-5.1) L 07/23/22 08:36 Chloride 103 mmol/L (98-107) 07/23/22 08:36 Carbon Dioxide 23.3 mmol/L (21.0-32.0) 07/23/22 08:36 Anion Gap 8.7 mmol/L (3-11) 07/23/22 08:36 BUN 8 mg/dL (7-18) 07/23/22 08:36 Creatinine 0.8 mg/dL (0.55-1.02) 07/23/22 08:36 Est GFR (CKD-EPI 2020) 101.59 (mL/min/1.73m2) 07/23/22 08:36 Glucose 101 mg/dL (74-106) 07/23/22 08:36 Uric Acid 5.2 mg/dL (2.6-6.0) 07/23/22 08:36 Calcium 9.3 mg/dL (8.5-10.1) 07/23/22 08:36 Total Bilirubin 0.4 mg/dL (0.2-1.0) 07/23/22 08:36 AST 16 U/L (15-37) 07/23/22 08:36 ALT 15 U/L (14-59) 07/23/22 08:36 Alkaline Phosphatase 225 U/L (46-116) H 07/23/22 08:36 Total Protein 7.0 g/dL (6.4-8.2) 07/23/22 08:36 Albumin 2.7 g/dL (3.4-5.0) L 07/23/22 08:36 Patient ABO/Rh O Negative 07/22/22 15:13 Antibody Screen NEGATIVE 07/22/22 15:13 Subjective Interval history since last seen: Gila slept well and awoke with mild contractions. She had removed the bdominal binder during the night. The baby's position in breech by Margarita and confirmed with US. BP at 0800 155/87. No edema noted or signs of preeclampsia Results Hemoglobin/Hematocrit: Hgb 11.7 g/dL (11.2-15.7) 07/22/22 15:13 Hct 35.0 % (36.0-46.0) L 07/22/22 15:13 Abnormal Lab Findings: Abnormal Labs 07/22/22 07/23/22 15:13 08:36 RBC 3.91 L Hct 35.0 L RDW 14.8 H MPV 11.6 H Sodium 135 L Potassium 3.4 L Alkaline Phosphatase 225 H Albumin 2.7 L
--- NOTE | 2022-07-23 11:41 | W.PM.OBNL1 ---
Date of service: 07/23/22 Time of Service: 11:42 Informed Consent Informed Consent: Risk,Benefits,Alternatives Discussed (expectant management vs. external version) Pelvic Exam Comments: exam deferred Contractions Monitor Mode: External Contraction Frequency(min): every 4-5 Contraction Duration(sec): 40-50 Intensity: Mild Fetus A Monitor: External (US) Heart Rate Baseline: 130 Presentation: Breech Variability: Moderate (6-25 BPM) Categories: Category I FHR Rhythm: Regular Accelerations: 15 X 15 Decelerations: Variable Recurrence: Episodic (occasional) Assessment and Plan Assessment and plan (1) Unstable lie of fetus, antepartum: Status: Acute Assessment and plan: Gila would like to wait until her company arrives and then decide. Gaetano padilla CRNA from anesthesia is here on the unit and went to discuss anesthesia options with Gila. Objective Abnormal lab results 07/22/22 07/23/22 Range/Units 15:13 08:36 RBC 3.91 L (3.93-5.22) 10^6/uL Hct 35.0 L (36.0-46.0) % RDW 14.8 H (11.7-14.6) % MPV 11.6 H (8.0-11.0) fL Sodium 135 L (136-145) mmol/L Potassium 3.4 L (3.5-5.1) mmol/L Alkaline Phosphatase 225 H (46-116) U/L Albumin 2.7 L (3.4-5.0) g/dL Temp Pulse Resp BP 97.7 F 67 20 140/85 07/22/22 15:17 07/23/22 09:32 07/22/22 15:17 07/23/22 09:32 Laboratory Results WBC 10.57 10^3/uL (4.4-10.8) 07/22/22 15:13 RBC 3.91 10^6/uL (3.93-5.22) L 07/22/22 15:13 Hgb 11.7 g/dL (11.2-15.7) 07/22/22 15:13 Hct 35.0 % (36.0-46.0) L 07/22/22 15:13 MCV 90 fL (80-95) 07/22/22 15:13 MCH 29.9 pg (27.0-33.0) 07/22/22 15:13 MCHC 33.4 % (32.0-36.0) 07/22/22 15:13 RDW 14.8 % (11.7-14.6) H 07/22/22 15:13 Plt Count 226 10^3/uL (130-400) 07/22/22 15:13 MPV 11.6 fL (8.0-11.0) H 07/22/22 15:13 Sodium 135 mmol/L (136-145) L 07/23/22 08:36 Potassium 3.4 mmol/L (3.5-5.1) L 07/23/22 08:36 Chloride 103 mmol/L (98-107) 07/23/22 08:36 Carbon Dioxide 23.3 mmol/L (21.0-32.0) 07/23/22 08:36 Anion Gap 8.7 mmol/L (3-11) 07/23/22 08:36 BUN 8 mg/dL (7-18) 07/23/22 08:36 Creatinine 0.8 mg/dL (0.55-1.02) 07/23/22 08:36 Est GFR (CKD-EPI 2020) 101.59 (mL/min/1.73m2) 07/23/22 08:36 Glucose 101 mg/dL (74-106) 07/23/22 08:36 Uric Acid 5.2 mg/dL (2.6-6.0) 07/23/22 08:36 Calcium 9.3 mg/dL (8.5-10.1) 07/23/22 08:36 Total Bilirubin 0.4 mg/dL (0.2-1.0) 07/23/22 08:36 AST 16 U/L (15-37) 07/23/22 08:36 ALT 15 U/L (14-59) 07/23/22 08:36 Alkaline Phosphatase 225 U/L (46-116) H 07/23/22 08:36 Total Protein 7.0 g/dL (6.4-8.2) 07/23/22 08:36 Albumin 2.7 g/dL (3.4-5.0) L 07/23/22 08:36 Patient ABO/Rh O Negative 07/22/22 15:13 Antibody Screen NEGATIVE 07/22/22 15:13 Subjective Interval history since last seen: Baby remains in breech presentation. CMP WNL. BP at 0930 140/85. Various positions tried including side lying release for hip opening. Gila feels tightening occasionally but no pain with contractions. Results Hemoglobin/Hematocrit: Hgb 11.7 g/dL (11.2-15.7) 07/22/22 15:13 Hct 35.0 % (36.0-46.0) L 07/22/22 15:13 Abnormal Lab Findings: Abnormal Labs 07/22/22 07/23/22 15:13 08:36 RBC 3.91 L Hct 35.0 L RDW 14.8 H MPV 11.6 H Sodium 135 L Potassium 3.4 L Alkaline Phosphatase 225 H Albumin 2.7 L
--- NOTE | 2022-07-23 12:17 | W.ANESPRE ---
General Info Date of Service Date Performed: 07/23/22 Height: 5 ft 3 in Weight: 90.7 kg Body Mass Index (BMI): 35.4 Surgical Procedure: Discussing potential Version for Breech position. Meds Allergies and Home Medications Allergies Allergy/AdvReac Type Severity Reaction Status Date / Time house dust Allergy Mild Verified 07/22/22 16:38 jaison Allergy Hives Verified 07/22/22 16:38 soap Allergy Blisters Verified 07/22/22 16:38 on hands pollen Allergy Intermediate Uncoded 07/22/22 16:38 Home Medication Medication Instructions Recorded prenat.vits,jil,hvn-btaq-rmfvz 1 tab PO DAILY 02/05/18 magnesium 250 mg tablet 250 mg PO DAILY PRN 09/28/18 cholecalciferol (vitamin D3) 100 1,000 unit PO PRN 07/26/19 mcg (4,000 unit) capsule sennosides 8.6 mg-docusate sodium 1 tab-cap PO .COMPLEX PRN 10/28/19 50 mg capsule (Senna Plus) ascorbate calcium (vitamin C) 500 1 g PO DAILY PRN 01/25/21 mg tablet loratadine 10 mg tablet 10 mg PO DAILY 03/23/21 blood sugar diagnostic (FreeStyle #100 ea 02/14/22 Lite Strips) lancets 28 gauge (FreeStyle #100 ea 02/14/22 Lancets) zinc gluconate 50 mg tablet 30 mg PO DAILY 06/20/22 Current Visit Medications: Current Medications Generic Name Dose Route Start Last Admin Trade Name Freq PRN Reason Stop Dose Admin Acetaminophen 650 mg 07/23/22 09:46 07/23/22 09:54 Acetaminophen 325 Mg Tab PO 650 mg Q4H PRN PRN Administration Ringer's Solution 1,000 mls @ 200 mls/hr 07/22/22 14:45 IV INFUSION KATIE Sodium Chloride 500 mls @ 0 mls/hr 07/22/22 14:42 Saline 500ml Bag IV PRN PRN As Directed IV Miscellaneous Supplies 1 each 07/22/22 14:45 Iv Access IV DIRECTED KATIE Magnesium Gluconate 500 mg 07/23/22 20:00 Magnesium Gluconate 500 Mg Tab PO DAILY@2000 KATIE Misoprostol 50 mcg 07/23/22 00:00 07/23/22 04:35 Misoprostol 25 Mcg Tab PO 50 mcg Q4H KATIE Administration Sodium Chloride 0 ml 07/22/22 14:42 Normal Saline Flush 10 Ml Syr IVP PRN PRN Terbutaline Sulfate 0.25 mg 07/22/22 14:42 Terbutaline 1 Mg/Ml Vial SC PRN PRN PFSH Active Problems Active Problems: Problem Status Onset Code Encounter for induction of labor Z34.90 Elevated blood pressure affecting in third trimester, antepartum O16.3 Unstable lie of fetus, antepartum O32.0XX0 History of macrosomia in infant in prior , currently O09.299 Maternal varicella, non-immune O09.899, Z28.3 BMI 31.0-31.9,adult Z68.31 Z34.90 Rh negative state in antepartum period O26.899, Z67.91 Medical History Medical History 33 weeks gestation of Biliary colic Breech presentation Family history of hypothyroidism Ingrown left big toenail Ingrown nail of great toe of right foot Leukocytosis Low TSH level resolved on repeat TSH (during ) Missed menses Premature uterine contractions Right lower quadrant pain Surgical History Surgical History Hx of cholecystectomy [place] teeth removed Tobacco Smoking/Tobacco Use Status: Never Passive smoking exposure: Yes Second hand exposure: Yes Alcohol Alcohol Intake: current Alcohol intake frequency: holidays/special occasions only Details: social, 1x/mos. w/o use w/ knowledge of . Substance Use Substance use: Never Substance use type: does not use Prental History History 4 Para 3 Hx # Term Pregnancies 3 Multiple births 0 Hx # Pregnancies 0 Ectopic pregnancies 0 AB induced 0 Hx Number of Living Children 3 AB spontaneous 0 Past Pregnancies Del. Date GA/Weeks # Preg Succ Route Wgt Sex Labor Lgth Anesthesia Location Prov Compl 09/14/18 41 No vaginal 4167.38 g Female ashley Hollingsworth CNM 11/07/19 39 No vaginal 3883.885 g Male 24 hours ashley Powers CNM 02/08/21 41 No Yes vaginal 3969.784 g Female 8 hours MICHELL Hollingsworth Delivery Date: 09/14/18 Last Updated by: Yana Blake IOL for postdates and PROM, prolonged labor> 20 hrs, pit aug, epidural Delivery Date: 11/07/19 Last Updated by: Yana Blake IOL for unstable lie, epidural, had decreased FHT with bright red bleeding right before delivery, tight nuchal cord, first degree Delivery Date: 02/08/21 Last Updated by: Irina Powers CNM Spontaneous labor, Tub . Vital Signs and Lab Results Vital Signs Most Recent Vital Signs in EMR: Most Recent Vital Signs Temp Pulse Resp BP 36.5 C 67 20 140/85 07/22/22 15:17 07/23/22 09:32 07/22/22 15:17 07/23/22 09:32 Lab Results 07/22/22 15:13 07/23/22 08:36 Blood Type / Crossmatch: Patient ABO/Rh O Negative 07/22/22 Antibody Screen NEGATIVE 07/22/22 Complete Blood Count: White Blood Count 10.57 10^3/uL (4.4-10.8) 07/22/22 15:13 Red Blood Count 3.91 10^6/uL (3.93-5.22) L 07/22/22 15:13 Hemoglobin 11.7 g/dL (11.2-15.7) 07/22/22 15:13 Hematocrit 35.0 % (36.0-46.0) L 07/22/22 15:13 Platelet Count 226 10^3/uL (130-400) 07/22/22 15:13 Complete Metabolic Panel: Sodium 135 mmol/L (136-145) L 07/23/22 08:36 Potassium 3.4 mmol/L (3.5-5.1) L 07/23/22 08:36 Chloride 103 mmol/L (98-107) 07/23/22 08:36 Carbon Dioxide 23.3 mmol/L (21.0-32.0) 07/23/22 08:36 BUN 8 mg/dL (7-18) 07/23/22 08:36 Creatinine 0.8 mg/dL (0.55-1.02) 07/23/22 08:36 Est GFR (CKD-EPI 2020) 101.59 (mL/min/1.73m2) 07/23/22 08:36 Calcium 9.3 mg/dL (8.5-10.1) 07/23/22 08:36 Albumin 2.7 g/dL (3.4-5.0) L 07/23/22 08:36 Glucose 101 mg/dL (74-106) 07/23/22 08:36 Liver Function Panel: Alanine Aminotransferase (ALT/SGPT) 15 U/L (14-59) 07/23/22 08:36 Aspartate Amino Transf (AST/SGOT) 16 U/L (15-37) 07/23/22 08:36 Coagulation Panel: No Data to Display Cardiac Panel: No Data to Display Arterial Blood Gas: No Data to Display Venous Blood Gas: No Data to Display Pancreas Panel: No Data to Display Thyroid Panel: Thyroid Stimulating Hormone (TSH) 0.77 uIU/mL (0.36-3.74) 07/20/22 09:35 Infectious Disease: No Data to Display Blood Cultures: No Data to Display Toxicology Panel: Urine Amphetamines Screen Negative (Negative) 07/04/22 15:00 Urine Benzodiazepines Screen Negative (Negative) 07/04/22 15:00 Urine Barbiturates Screen Negative (Negative) 07/04/22 15:00 Urine Cocaine Screen Negative (Negative) 07/04/22 15:00 Urine Methadone Screen Negative (Negative) 07/04/22 15:00 Urine Opiates Screen Negative (Negative) 07/04/22 15:00 Ur Tricyclic Antidepressants Screen Negative (Negative) 07/04/22 15:00 Ur Tetrahydrocannabinol (THC) Scrn Negative (Negative) 07/04/22 15:00 Panel: No Data to Display Anesthesia Assessment and Plan Anesthesia History Personal History: No History of Anesthesia Complications Family History: No Family History of Anesthesia Complications Exercise Tolerance Exercise Tolerance: Metabolic Equivalents>4 Pertinent Negatives Pertinent Negatives: No Symptoms of GERD, No Major Cardiovascular Symptoms or Complaints, No Major Pulmonary Symptoms or Complaints and No History of CVA/TIA Cardiac & Pulmonary Exam Cardiac Exam: Normal S1/S2 Heart Sounds Pulmonary Exam: Clear Bilateral Breath Sounds Implantable Cardiac Device Does patient have a Pacemaker or an ICD?: No Airway Exam Known Difficult Airway: No Mallampati Class: 3 Mouth Opening: Normal (> 3cm) Thyromental Distance: Greater than 3 cm Neck Range of Motion: Full ROM Neck Circumference: Normal Teeth Condition: Normal Dentition ASA Classification ASA Score: ASA 2 Emergency Case?: No NPO Status NPO Status: Full Stomach Status Status: Confirmed Anesthesia Plan Resuscitation Status: Full Code Anesthesia Technique: Spinal Anesthesia (Secondary emergent plan of GA if spinal fails or if not enough time to place spinal) Airway Planned: Natural Airway Monitors Used: Standard Monitors
--- NOTE | 2022-07-23 16:31 | W.PM.OBNL1 ---
Date of service: 07/23/22 Time of Service: 16:31 Informed Consent Informed Consent: Risk,Benefits,Alternatives Discussed (pitocin augmentation vs.cervidil) Pelvic Exam Dilation: 1 Effacement (%): 50 station: -2 Cervix Position: mid Consistency: soft Contractions Monitor Mode: External Contraction Frequency(min): every 2-4 Contraction Duration(sec): 40-50 Intensity: Mild/Moderate Fetus A Monitor: External (US) Heart Rate Baseline: 140 Presentation: Vertex Variability: Moderate (6-25 BPM) Categories: Category I Accelerations: 15 X 15 Decelerations: None Assessment and Plan Assessment and plan (1) Encounter for induction of labor: Status: Acute Assessment and plan: Options for continued induction discussed. Gila was offered and declines AROM. Due to ongoing contractions, pitocin augmentation or cervidil was offered and Gila wishes to use the tub later for comfort so she decided on continued cervical ripening with cervidil. The abdominal binder was placed above the fundus and ambulation was encouraged. Will administer cervidil when it is available. (2) Unstable lie of fetus, antepartum: Status: Acute Assessment and plan: Continue to assess baby's presentation. Dr. holder is present on the unit and is aware of this plan. Anticipate . Objective Abnormal lab results 07/23/22 Range/Units 08:36 Sodium 135 L (136-145) mmol/L Potassium 3.4 L (3.5-5.1) mmol/L Alkaline Phosphatase 225 H (46-116) U/L Albumin 2.7 L (3.4-5.0) g/dL Temp Pulse Resp BP 97.7 F 71 20 166/90 H 07/22/22 15:17 07/23/22 16:09 07/22/22 15:17 07/23/22 16:09 Laboratory Results WBC 10.57 10^3/uL (4.4-10.8) 07/22/22 15:13 RBC 3.91 10^6/uL (3.93-5.22) L 07/22/22 15:13 Hgb 11.7 g/dL (11.2-15.7) 07/22/22 15:13 Hct 35.0 % (36.0-46.0) L 07/22/22 15:13 MCV 90 fL (80-95) 07/22/22 15:13 MCH 29.9 pg (27.0-33.0) 07/22/22 15:13 MCHC 33.4 % (32.0-36.0) 07/22/22 15:13 RDW 14.8 % (11.7-14.6) H 07/22/22 15:13 Plt Count 226 10^3/uL (130-400) 07/22/22 15:13 MPV 11.6 fL (8.0-11.0) H 07/22/22 15:13 Sodium 135 mmol/L (136-145) L 07/23/22 08:36 Potassium 3.4 mmol/L (3.5-5.1) L 07/23/22 08:36 Chloride 103 mmol/L (98-107) 07/23/22 08:36 Carbon Dioxide 23.3 mmol/L (21.0-32.0) 07/23/22 08:36 Anion Gap 8.7 mmol/L (3-11) 07/23/22 08:36 BUN 8 mg/dL (7-18) 07/23/22 08:36 Creatinine 0.8 mg/dL (0.55-1.02) 07/23/22 08:36 Est GFR (CKD-EPI 2020) 101.59 (mL/min/1.73m2) 07/23/22 08:36 Glucose 101 mg/dL (74-106) 07/23/22 08:36 Uric Acid 5.2 mg/dL (2.6-6.0) 07/23/22 08:36 Calcium 9.3 mg/dL (8.5-10.1) 07/23/22 08:36 Total Bilirubin 0.4 mg/dL (0.2-1.0) 07/23/22 08:36 AST 16 U/L (15-37) 07/23/22 08:36 ALT 15 U/L (14-59) 07/23/22 08:36 Alkaline Phosphatase 225 U/L (46-116) H 07/23/22 08:36 Total Protein 7.0 g/dL (6.4-8.2) 07/23/22 08:36 Albumin 2.7 g/dL (3.4-5.0) L 07/23/22 08:36 Patient ABO/Rh O Negative 07/22/22 15:13 Antibody Screen NEGATIVE 07/22/22 15:13 Subjective Interval history since last seen: Gila visited with her company and reported that contractions were mild. Darling CANAS suspected the baby was vertex by jamie. Dr Holder went in to meet Gila and confirmed that baby was vertex by US. Results Hemoglobin/Hematocrit: Hgb 11.7 g/dL (11.2-15.7) 07/22/22 15:13 Hct 35.0 % (36.0-46.0) L 07/22/22 15:13 Abnormal Lab Findings: Abnormal Labs 07/22/22 07/23/22 15:13 08:36 RBC 3.91 L Hct 35.0 L RDW 14.8 H MPV 11.6 H Sodium 135 L Potassium 3.4 L Alkaline Phosphatase 225 H Albumin 2.7 L
[2022-07-23] MEDS: Dinoprostone-CERVICAL 10 MG VSUPP VG (17:00)
--- NOTE | 2022-07-23 21:23 | W.PM.OBNL1 ---
Date of service: 07/23/22 Time of Service: 21:23 Informed Consent Informed Consent: Risk,Benefits,Alternatives Discussed (pitocin augmentation vs.cervidil) Pelvic Exam Dilation: 2 Effacement (%): 80 station: -2 Position: KEZIA Cervix Position: posterior Consistency: soft Contractions Monitor Mode: External Contraction Frequency(min): every 2-3 Contraction Duration(sec): 60 Intensity: Moderate Fetus A Monitor: External (US) Heart Rate Baseline: 140 Presentation: Vertex Variability: Moderate (6-25 BPM) Categories: Category I Accelerations: 15 X 15 Decelerations: None Assessment and Plan Assessment and plan (1) Encounter for induction of labor: Status: Acute Assessment and plan: Tub was prepared and will continue to provide comfort measures. Anticipate Objective Abnormal lab results 07/23/22 Range/Units 08:36 Sodium 135 L (136-145) mmol/L Potassium 3.4 L (3.5-5.1) mmol/L Alkaline Phosphatase 225 H (46-116) U/L Albumin 2.7 L (3.4-5.0) g/dL Temp Pulse Resp BP 97.7 F 100 H 20 141/83 H 07/22/22 15:17 07/23/22 21:07 07/22/22 15:17 07/23/22 21:07 Laboratory Results WBC 10.57 10^3/uL (4.4-10.8) 07/22/22 15:13 RBC 3.91 10^6/uL (3.93-5.22) L 07/22/22 15:13 Hgb 11.7 g/dL (11.2-15.7) 07/22/22 15:13 Hct 35.0 % (36.0-46.0) L 07/22/22 15:13 MCV 90 fL (80-95) 07/22/22 15:13 MCH 29.9 pg (27.0-33.0) 07/22/22 15:13 MCHC 33.4 % (32.0-36.0) 07/22/22 15:13 RDW 14.8 % (11.7-14.6) H 07/22/22 15:13 Plt Count 226 10^3/uL (130-400) 07/22/22 15:13 MPV 11.6 fL (8.0-11.0) H 07/22/22 15:13 Sodium 135 mmol/L (136-145) L 07/23/22 08:36 Potassium 3.4 mmol/L (3.5-5.1) L 07/23/22 08:36 Chloride 103 mmol/L (98-107) 07/23/22 08:36 Carbon Dioxide 23.3 mmol/L (21.0-32.0) 07/23/22 08:36 Anion Gap 8.7 mmol/L (3-11) 07/23/22 08:36 BUN 8 mg/dL (7-18) 07/23/22 08:36 Creatinine 0.8 mg/dL (0.55-1.02) 07/23/22 08:36 Est GFR (CKD-EPI 2020) 101.59 (mL/min/1.73m2) 07/23/22 08:36 Glucose 101 mg/dL (74-106) 07/23/22 08:36 Uric Acid 5.2 mg/dL (2.6-6.0) 07/23/22 08:36 Calcium 9.3 mg/dL (8.5-10.1) 07/23/22 08:36 Total Bilirubin 0.4 mg/dL (0.2-1.0) 07/23/22 08:36 AST 16 U/L (15-37) 07/23/22 08:36 ALT 15 U/L (14-59) 07/23/22 08:36 Alkaline Phosphatase 225 U/L (46-116) H 07/23/22 08:36 Total Protein 7.0 g/dL (6.4-8.2) 07/23/22 08:36 Albumin 2.7 g/dL (3.4-5.0) L 07/23/22 08:36 Patient ABO/Rh O Negative 07/22/22 15:13 Antibody Screen NEGATIVE 07/22/22 15:13 Subjective Interval history since last seen: Gila is complaining of more discomfort. She requested to use the tub. Cervidil remains in place. Results Hemoglobin/Hematocrit: Hgb 11.7 g/dL (11.2-15.7) 07/22/22 15:13 Hct 35.0 % (36.0-46.0) L 07/22/22 15:13 Abnormal Lab Findings: Abnormal Labs 07/22/22 07/23/22 15:13 08:36 RBC 3.91 L Hct 35.0 L RDW 14.8 H MPV 11.6 H Sodium 135 L Potassium 3.4 L Alkaline Phosphatase 225 H Albumin 2.7 L
[2022-07-24] VITALS (13 sets, daily range): BP systolic 120–158; BP diastolic 68–92; PULSE 69–95; RESP 16–18; TEMP 36.7–37.3
--- NOTE | 2022-07-24 00:59 | W.PM.OBNL1 ---
Date of service: 07/24/22 Time of Service: 00:59 Pelvic Exam Dilation: 7 Effacement (%): 100 station: -1 Cervix Position: posterior Consistency: soft Contractions Monitor Mode: External Contraction Frequency(min): every 3 min Contraction Duration(sec): 60 Intensity: Strong Fetus A Monitor: External (US) Heart Rate Baseline: 135 Presentation: Vertex Variability: Moderate (6-25 BPM) Categories: Category I FHR Rhythm: Regular Accelerations: 15 X 15 Decelerations: Variable Recurrence: Episodic Amniotic Membrane Status: Intact Assessment and Plan Assessment and plan (1) Encounter for induction of labor: Status: Acute Assessment and plan: Anticipate . Will reassess for cervical change in 2 hours or PRN. Objective Abnormal lab results 07/23/22 Range/Units 08:36 Sodium 135 L (136-145) mmol/L Potassium 3.4 L (3.5-5.1) mmol/L Alkaline Phosphatase 225 H (46-116) U/L Albumin 2.7 L (3.4-5.0) g/dL Temp Pulse Resp BP 98.2 F 128 H 14 138/92 H 07/23/22 23:55 07/23/22 23:55 07/23/22 23:55 07/23/22 23:55 Laboratory Results WBC 10.57 10^3/uL (4.4-10.8) 07/22/22 15:13 RBC 3.91 10^6/uL (3.93-5.22) L 07/22/22 15:13 Hgb 11.7 g/dL (11.2-15.7) 07/22/22 15:13 Hct 35.0 % (36.0-46.0) L 07/22/22 15:13 MCV 90 fL (80-95) 07/22/22 15:13 MCH 29.9 pg (27.0-33.0) 07/22/22 15:13 MCHC 33.4 % (32.0-36.0) 07/22/22 15:13 RDW 14.8 % (11.7-14.6) H 07/22/22 15:13 Plt Count 226 10^3/uL (130-400) 07/22/22 15:13 MPV 11.6 fL (8.0-11.0) H 07/22/22 15:13 Sodium 135 mmol/L (136-145) L 07/23/22 08:36 Potassium 3.4 mmol/L (3.5-5.1) L 07/23/22 08:36 Chloride 103 mmol/L (98-107) 07/23/22 08:36 Carbon Dioxide 23.3 mmol/L (21.0-32.0) 07/23/22 08:36 Anion Gap 8.7 mmol/L (3-11) 07/23/22 08:36 BUN 8 mg/dL (7-18) 07/23/22 08:36 Creatinine 0.8 mg/dL (0.55-1.02) 07/23/22 08:36 Est GFR (CKD-EPI 2020) 101.59 (mL/min/1.73m2) 07/23/22 08:36 Glucose 101 mg/dL (74-106) 07/23/22 08:36 Uric Acid 5.2 mg/dL (2.6-6.0) 07/23/22 08:36 Calcium 9.3 mg/dL (8.5-10.1) 07/23/22 08:36 Total Bilirubin 0.4 mg/dL (0.2-1.0) 07/23/22 08:36 AST 16 U/L (15-37) 07/23/22 08:36 ALT 15 U/L (14-59) 07/23/22 08:36 Alkaline Phosphatase 225 U/L (46-116) H 07/23/22 08:36 Total Protein 7.0 g/dL (6.4-8.2) 07/23/22 08:36 Albumin 2.7 g/dL (3.4-5.0) L 07/23/22 08:36 Patient ABO/Rh O Negative 07/22/22 15:13 Antibody Screen NEGATIVE 07/22/22 15:13 Subjective Interval history since last seen: Gila is using the tub for comfort with good effect and she is coping well with contractions. She declined rupture of membranes and she wishes to remain in the water fo delivery. The contractions were every 2 minutes and the cervidil was removed. Results Hemoglobin/Hematocrit: Hgb 11.7 g/dL (11.2-15.7) 07/22/22 15:13 Hct 35.0 % (36.0-46.0) L 07/22/22 15:13 Abnormal Lab Findings: Abnormal Labs 07/22/22 07/23/22 15:13 08:36 RBC 3.91 L Hct 35.0 L RDW 14.8 H MPV 11.6 H Sodium 135 L Potassium 3.4 L Alkaline Phosphatase 225 H Albumin 2.7 L
[2022-07-24] MEDS: Oxytocin 10 UNITS/ML VIAL IM (01:37)
[2022-07-24] MEDS: miSOPROStol 200 MCG TAB 400 MCG SL (01:40)
--- NOTE | 2022-07-24 02:11 | W.OBDELIVERY ---
Date of service: 07/24/22 Time of Service: 02:11 OB Labor/ Delivery Information Baby A Delivery Delivery Method: Spontaneaous Presentation: Vertex Vertex Position: Left Occipital Anterior Amniotic Fluid: Clear Estimated Blood Loss: 700 Delivery Outcome: Liveborn Infant Complications: none Infant Transferred: Remains with Mother Note: FHTs 130s with episodic brief variable decelerations during first stage of labor. Gila labored in the tub and cervidil was removed at 7 cms dilation. The abdominal binder was removed. FHTs 130s in second stage by intermittent auscultation. She progressed rapidly to full dilation and began bearing down. Precipitous delivery of male infant delivered in KEZIA position. Baby was brought immediately to [facility] and was placed in mother's arms and had a vigorous cry. Cord was clamped and cut by xavi serrano's father after it stopped pulsating. Gila was moved to the bed . The placenta delivered spontaneously and appears to by intact with a three vessel cord. Pitocin 10 units IM was administered before delivery of the placenta. A large amount of clots delivered with alessandro placenta and measured 500 cc. Cytotec 400 mcg PO was given. The perineum was inspected and there was a small perineal abrasion which did not require sutures . The baby did breastfeed well after delivery. After delivery, Mother and baby Ahmet and father Fabricio were stable and bonding well in the delivery room and there were no complications. Providers Nurse Neurophysiological Technician: Irina Powers Database Management System Specialist: Claudio Butt Nurse: Richa Steiner Nurse: Lali Campos Labor/Delivery Information Number of Babies in Womb: 1 Steroids Given: None Reason Steroids Not Administered: N/A Group Beta Strep: Negative Rubella Status: Immune Blood Type: A- Varicella Immunity: Nonimmune Medication in Delivery: 10u oxytocin IM Shoulder Dystocia: No Stages of Labor Onset of Labor Date: 07/23/22 Onset of Labor Time: 19:00 Complete Dilatation Date: 07/24/22 Complete Dilatation Time: 01:10 Labor - Stage 1 Duration: 6 hours and 10 minutes ROM Baby A: 07/24/22 ROM Baby A: 01:00 Infant Delivery Date-Baby A: 07/24/22 Infant Delivery Time-Baby A: 01:18 Labor Stage 2 Duration: 8 minutes Placenta Delivery Date-Baby A: 07/24/22 Placenta Delivery Time-Baby A: 01:39 Labor-Stage 3 Duration: 21 minutes Total Length of Labor-Baby A: 6 hours and 18 minutes Placenta Cultured: No Placenta Status: Delivered Baby A Infant Gender: Male Gestational Status: Term (39-41.6 wks) Gestational Age in Weeks/Days: 39 Weeks and 2 Days Length-Baby A: 21.46 in Score-1 Minute Interval(Baby A) Heart Rate-1 minute: 100 BPM or Greater Respiratory Effort- 1 minute: Spontaneous/Strong Cry Muscle Tone-1 minute: Active Movement Reflex Response-1 minute: Prompt Response Color-1 minute: Pallor or Cyanosis Total Score-1 minute: 8 Score-5 Minute Interval(Baby A) Heart Rate- 5 minute: 100 BPM or Greater Respiratory Effort-5 minute: Spontaneous/Strong Cry Muscle Tone-5 minute: Active Movement Reflex Response-5 minute: Prompt Response Color-5 minute: Bluish Hands or Feet Total Score- 5 minute: 9
[2022-07-24] MEDS: Acetaminophen 325 MG TAB 650 MG PO ×3 (02:35→17:27)
[2022-07-24] MEDS: Ibuprofen 600 MG TAB PO ×3 (02:36→17:27)
[2022-07-24] MEDS: Dibucaine 1% 28 GM TUBE TP (02:39)
[2022-07-24] MEDS: Hamamelis Leaf/Glycerin 100 EACH BOX PR (02:40)
[2022-07-24] MEDS: Oxytocin/Normal Saline 30 UNIT/500 ML BAG 95 UNITS IV (03:13)
[2022-07-24] MEDS: Normal Saline Flush 10 ML SYR IVP (03:17)
--- NOTE | 2022-07-24 05:39 | W.PM.OBPNV1 ---
Date of service: 07/24/22 Time of Service: 03:30 Assessment and Plan Assessment and plan (1) hemorrhage, delivered: Status: Acute Assessment and plan: Continued assessment of QBL and continue pitocin infusion. Consider TXA and roberts catheter if bleeding continues. Fluid replacement after pitocin is infused. (2) Term of male : Status: Acute Assessment and plan: Routine post care. Subjective Subjective Interval history: Gila continues to have slow but bright bleeding. IV pitocin was started per protocol for post infusion and the uterus was massaged. She soaked a large pad in 1 hour which weighed 105 cc. at 0330. She was straight cathed for 75 cc of concentrated urine. bP 133/91 and pulse 79 Exam Physical Exam Vital signs: Temp Pulse Resp BP 99.1 F 92 H 16 124/72 07/24/22 03:47 07/24/22 05:29 07/24/22 01:49 07/24/22 05:29 Results Hemoglobin/Hematocrit: Hgb 11.7 g/dL (11.2-15.7) 07/22/22 15:13 Hct 35.0 % (36.0-46.0) L 07/22/22 15:13 Abnormal Lab Findings: Abnormal Labs 07/22/22 07/23/22 15:13 08:36 RBC 3.91 L Hct 35.0 L RDW 14.8 H MPV 11.6 H Sodium 135 L Potassium 3.4 L Alkaline Phosphatase 225 H Albumin 2.7 L
--- NOTE | 2022-07-24 05:47 | W.PM.OBPNV1 ---
Date of service: 07/24/22 Time of Service: 05:47 Assessment and Plan Assessment and plan (1) hemorrhage, delivered: Status: Acute Assessment and plan: TXA is held at this time. Will continue to assess. Lactated ringers 500 cc bolus was ordered after the pitocin is infused and then 125 cc/hr. Gila is stable at this time and resting comfortably. (2) Elevated blood pressure affecting in third trimester, antepartum: Status: Resolved Assessment and plan: Protein/ creatinene ratio was sent and will plan to repeat CBC and CMP at 2100. Subjective Subjective Interval history: I was called at 0420 by RN because the patient had a soaked pad with 120 cc of blood. Gila requested to get up to the bathroom but did not void. She tolerated that fairly well with slight dizziness. She complained of cramping and had received motrin 600 mg PO. BP was 133/88 and pulse 92. After returning to bed a roberts catheter was placed for 25 cc of concentrated urine. Under nitrous oxide analgesia, a speculum exam was performed and three small clots were extracted from the internal os of the cervix and the cervix was examined. There was no bleeding noted from the cervix. Total QBL from this procedure and blood that was in the hat in the toilet was 84 cc. Total QBL after delivery was 1130. The fundus was firm after extraction of clots and bleeding was light. Dr Jorge was called at 0530 and notified of Gila's status. Exam Physical Exam Vital signs: Temp Pulse Resp BP 99.1 F 92 H 16 124/72 07/24/22 03:47 07/24/22 05:29 07/24/22 01:49 07/24/22 05:29 Results Hemoglobin/Hematocrit: Hgb 11.7 g/dL (11.2-15.7) 07/22/22 15:13 Hct 35.0 % (36.0-46.0) L 07/22/22 15:13 Abnormal Lab Findings: Abnormal Labs 07/22/22 07/23/22 15:13 08:36 RBC 3.91 L Hct 35.0 L RDW 14.8 H MPV 11.6 H Sodium 135 L Potassium 3.4 L Alkaline Phosphatase 225 H Albumin 2.7 L
[2022-07-24] MEDS: Lactated Ringers 500 ML IV (06:08)
[2022-07-24 07:03] LABS: PROTEIN 63.8 mg/dL; Prot/Crea Ur Ratio 0.18
[2022-07-24] MEDS: Docusate Sodium 100 MG CAP PO (09:50)
[2022-07-24 21:18] LABS: HCT 30.3 % (36.0-46.0); HGB 10.2 g/dL (11.2-15.7); MCH 30.6 pg (27.0-33.0); MCHC 33.7 % (32.0-36.0); MCV 91 fL (80-95); MPV 11.5 fL (8.0-11.0); Platelet Count 236 10^3/uL (130-400); RBC 3.33 10^6/uL (3.93-5.22); RDW 14.9 % (11.7-14.6); RDW-SD 49.5 fL; WBC 13.47 10^3/uL (4.4-10.8)
[2022-07-24 21:47] LABS: ALT 13 U/L (14-59); AST 11 U/L (15-37); Albumin 2.2 g/dL (3.4-5.0); Alkaline Phosphatase 158 U/L (46-116); Anion Gap 7.1 mmol/L (3-11); BUN 11 mg/dL (7-18); Bilirubin, Total 0.2 mg/dL (0.2-1.0); CO2 24.9 mmol/L (21.0-32.0); CREATININE 0.7 mg/dL (0.55-1.02); Calcium 8.8 mg/dL (8.5-10.1); Chloride 109 mmol/L (98-107); Estimated GFR 119.24 (mL/min/1.73m2); Glucose 88 mg/dL (74-106); Sodium 141 mmol/L (136-145); Total Protein 5.7 g/dL (6.4-8.2)
[2022-07-25] MEDS: Ibuprofen 600 MG TAB PO ×2 (00:26→11:55)
[2022-07-25] MEDS: Acetaminophen 325 MG TAB 650 MG PO ×2 (00:27→11:55)
[2022-07-25 06:15] VITALS: BP 135/82; PULSE 79; RESP 18
[2022-07-25 06:38] LABS: HCT 33.5 % (36.0-46.0); HGB 11.1 g/dL (11.2-15.7); MCH 30.6 pg (27.0-33.0); MCHC 33.1 % (32.0-36.0); MCV 92 fL (80-95); MPV 11.8 fL (8.0-11.0); Platelet Count 238 10^3/uL (130-400); RBC 3.63 10^6/uL (3.93-5.22); RDW 14.9 % (11.7-14.6); RDW-SD 50.6 fL; WBC 13.74 10^3/uL (4.4-10.8)
--- NOTE | 2022-07-25 11:55 | W.PM.OBDISCH ---
Date of service: 07/25/22 Time of Service: 16:36 DS: Diagnosis Discharge Diagnosis (1) hemorrhage, delivered: Status: Acute Asessment and Plan: Gila has been Out of bed without incident and vital signs are stable. She requests discharge to home today after the baby has a circumcision. This morning H and H is 11.1 and 33.5 (2) Elevated blood pressure affecting in third trimester, antepartum: Status: Resolved Asessment and Plan: BP has been WNL with normal labwork last night. Gila has a BP cuff at home and was instructed to take her BP at home daily. Rest was encouraged when she returns home. (3) Term of male : Status: Acute Asessment and Plan: She has been caring for her baby, Ahmet independently. Pain is managed well with oral analgesics. Voiding without difficulty. well. A - stable mother and baby, S/P post hemorrhage , Post day 1 P - Discharge to home this evening . Routine post instructions. [facility] at 2 and 6 weeks. Discharge Plan Disposition Patient Disposition: Home Condition: Good Discharge Details Reason For Visit: IOL Admit Date/Time: 07/22/22 14:08 Admit Provider: Irina Powers Attending Provider: Irina Powers Primary Care Provider: Yari Anaya Home Meds and New Rx's Prescriptions: Continued magnesium 250 mg tablet 250 mg PO DAILY PRN Discontinued (DME) lancets [FreeStyle Lancets] 28 gauge misc See Rx Instructions .Route Qty: 100 0RF Rx Instructions: 4 times daily (DME) FreeStyle Lite Strips Strip See Rx Instructions .Route Qty: 100 0RF Rx Instructions: 4 times daily No Action prenat.vits,jil,zll-xdax-ydyfm tablet 1 tab PO DAILY zinc gluconate 50 mg tablet 30 mg PO DAILY cholecalciferol (vitamin D3) 100 mcg (4,000 unit) capsule 1,000 unit PO PRN Senna Plus 8.6-50 mg capsule 1 tab-cap PO .COMPLEX PRN Rx Instructions: 1 tab-cap PO every other day; PRN; ascorbate calcium (vitamin C) 500 mg tablet 1 g PO DAILY PRN loratadine 10 mg tablet 10 mg PO DAILY Discharge Instructions Stand Alone Forms: BC Instructions, BC Post Vaginal Deliver Activity:: Activity as Tolerated Equipment/Supplies:: No Equipment Needed Diet:: As Tolerated Discharge Orders Discharge Orders: Discharge Order (Routine); Ordered 07/25/22 Ordered By: Irina Powers Discharge Data Discharge Date/Time-TO BE ENTERED AT DEPARTURE: 07/25/22 15:15 OB:DS Summary Summary Vaginal Delivery Method: Spontaneaous Episiotomy Description: None Laceration Description: None Laceration Extension: N/A Contraception Discussed Contraception Discussed: Yes Contraceptive Plan: Undecided (Caya discussed), [place] Infant Gender-Baby A: Male weight: 6 lb 12.644 oz Status at Discharge Functional status at discharge: independent ambulation Overall status at discharge: patient is back to baseline Mental Status: mental status grossly normal Speech and Movement: speech and movement normal Mood: congruent mood Affect: normal affect Exam Physical Exam Vital signs: Temp Pulse Resp BP 98.1 F 79 18 135/82 07/24/22 19:37 07/25/22 06:15 07/25/22 06:15 07/25/22 06:15 Respiratory Exam Respiratory Exam: Normal Cardiovascular Exam Cardiovascular Exam: Normal Fundal Exam Fundus: Below Umbilicus and Firm Exam Comments: Intact perienum. Extremities Exam Extremity Exam: Normal Back/Spine/Pelvis Exam Back Exam: Normal Skin Exam Skin Exam: Normal Psychiatric Exam Psych[facility] Exam: [facility] All Active Problems (Updated 07/24/22 @ 05:41 by Irina Powers CNM) Term of male (Acute) hemorrhage, delivered (Acute) Encounter for induction of labor (Acute) Unstable lie of fetus, antepartum (Acute) History of macrosomia in in prior , currently (Acute) Maternal varicella, non-immune (Acute) BMI 31.0-31.9,adult (Acute) (Acute) Rh negative state in antepartum period (Acute) Medical History 33 weeks gestation of Biliary colic Breech presentation Family history of hypothyroidism Ingrown left big toenail Ingrown nail of great toe of right foot Leukocytosis Low TSH level resolved on repeat TSH (during ) Missed menses Premature uterine contractions Right lower quadrant pain Surgical History Hx of cholecystectomy [place] teeth removed Family History Mother Thyroid disorder hypothyroid History of hysterectomy for benign disease fibroids Hx laparoscopic cholecystectomy Preeclampsia Gallbladder disease Sister Raynaud's disease Thyroid disorder hypothyroid, biopsy taken Preeclampsia Maternal Grandmother Hypertension Parkinson's disease Maternal Grandfather Hypertension Myocardial infarction Paternal Grandmother Diabetes Hypertension Breast cancer Paternal Grandfather Hx of cholecystectomy Brother Liver disease Father Gallbladder disease Sister No problems noted. Sister No problems noted. Brother No problems noted. Brother Hypothyroid Sister No problems noted. Daughter No problems noted. Social History Smoking/Tobacco Use Status: Never Second Hand Exposure: Yes Smoking risk assessment performed?: Yes Alcohol Intake: current Alcohol Intake frequency: holidays/special occasions only Details: social, 1x/mos. w/o use w/ knowledge of . Drug use: Never Substance use type: does not use Adopted: No Caregiver/Support person: No Foster care: No Household members: spouse and children Housing: house Number of Children: 0 Communication Needs: Corrective Lenses Do you need help understanding health information?: Never current occupation: nurse [employer]. Pets and animals: Yes Pets and animals: dog(s) Sexually active: Yes Current gender identity: female What is your relationship status?: How often do you talk on the phone with friends or family?: three or more times per week Do you belong to any clubs or organized social groups?: yes Panel score (0-1 are the most socially isolated patients): 3 What type of physical activity do you participate in: walking, weight lifting and other Sadaf/Hinduism: Other Special sadaf needs: No Agree to transfusion: Yes Seatbelt use: always Helmet use: Yes (not w/ bicycle, enc. to use at all times.) Helmet use: sometimes Drive intox or ride w/intox garbage truck driver: No Water heater temp set <120 deg: No (unknown, will check.) Working smoke detector in home: Yes Fire extinguisher in home: Yes Carbon monox detector in home: Yes Firearms in home: Yes (yes,) Do you feel safe at home: Yes Do you feel safe in your relationship?: Yes Victim of physical abuse: No Victim of emotional abuse: No Victim of sexual abuse: No Female Reproductive History Menstrual Age of Menarche: 13 Duration of menses: 3-5 days control method: none History History 4 Para 3 Hx # Term Pregnancies 3 Multiple births 0 Hx # Pregnancies 0 Ectopic pregnancies 0 AB induced 0 Hx Number of Living Children 3 AB spontaneous 0 Past Pregnancies Del. Date GA/Weeks # Preg Succ Route Wgt Sex Labor Lgth Anesthesia Location Prov Complic 09/14/18 41 No vaginal 9 lb 3 oz Female regional Darrick GALARZA 11/07/19 39 No vaginal 8 lb 9 oz Male 24 hours regional Froylan Powers CNM 02/08/21 41 No Yes vaginal 8 lb 12.03 oz Female 8 hours [facility] Delivery Date: 09/14/18 Last Updated by: Yana Blake IOL for postdates and PROM, prolonged labor> 20 hrs, pit aug, epidural Delivery Date: 11/07/19 Last Updated by: Yana Blake IOL for unstable lie, epidural, had decreased FHT with bright red bleeding right before delivery, tight nuchal cord, first degree Delivery Date: 02/08/21 Last Updated by: Irina Powers CNM Spontaneous labor, Tub . DS: Data Vitals/I&O Vitals and I&O: Vital Signs Temperature 98.1 F 07/24/22 19:37 Temperature Source Oral 07/24/22 19:37 Pulse 79 07/25/22 06:15 Pulse Rhythm Regular 07/24/22 19:37 Respiratory Rate 18 07/25/22 06:15 Respiratory Depth Normal 07/24/22 03:15 Blood Pressure 135/82 07/25/22 06:15 Blood Pressure Mean 99 07/25/22 06:15 Oxygen Delivery Method Room Air 07/22/22 15:17 Oxygen Flow Rate 0 07/22/22 15:17 Pain Level 4 07/25/22 00:27 Comment breathing with contrx 07/23/22 23:55 Intake & Output 07/24/22 07/24/22 07/25/22 11:59 23:59 11:59 Intake Total 500 / 500 Output Total 1205 / 1805 600 / 1805 Balance -705 / -1305 -600 / -1305 Intake: Oral 500 / 500 Output: Urine 75 / 675 600 / 675 Blood 1130 / 1130 Other: Urine Color Pale Comment up to BR, unable to void Data Completed and Pending Labs on day of discharge: Labs from last 24 hours 07/25/22 07/24/22 07/24/22 06:10 21:10 21:10 WBC 13.74 H RBC 3.63 L Hgb 11.1 L Hct 33.5 L MCV 92 MCH 30.6 MCHC 33.1 RDW 14.9 H Plt Count 238 MPV 11.8 H Sodium 141 Potassium 4.0 Chloride 109 H Carbon Dioxide 24.9 Anion Gap 7.1 BUN 11 Creatinine 0.7 Est GFR (CKD-EPI 2020) 119.24 Glucose 88 Calcium 8.8 Total Bilirubin 0.2 AST 11 L ALT 13 L Alkaline Phosphatase 158 H Total Protein 5.7 L Albumin 2.2 L Patient ABO/Rh Antibody Screen Screen Pending Rhogam Unit Number Unit Expiration Date Product Lot # 07/24/22 07/22/22 21:10 15:13 WBC 13.47 H RBC 3.33 L Hgb 10.2 L Hct 30.3 L MCV 91 MCH 30.6 MCHC 33.7 RDW 14.9 H Plt Count 236 MPV 11.5 H Sodium Potassium Chloride Carbon Dioxide Anion Gap BUN Creatinine Est GFR (CKD-EPI 2020) Glucose Calcium Total Bilirubin AST ALT Alkaline Phosphatase Total Protein Albumin Patient ABO/Rh O Negative Antibody Screen NEGATIVE Screen Rhogam Unit Number [id number] Unit Expiration Date 04/15/23 Product Lot # [id number]
[2022-07-25 15:29] VITALS: BP 124/80; PULSE 78; RESP 14; TEMP 36.5
== END 2022-07-25 15:15 | disposition home or self-care (01) | DRG 806 ==
PROVIDERS: Admitting Provider Advanced Practice Midwife; PCP Nurse Practitioner Family; Visit Provider Advanced Practice Midwife
DX: O32.0XX0 Maternal care for unstable lie, not applicable or unspecified (principal); O72.1 Other immediate postpartum hemorrhage; Z37.0 Single live birth; Z3A.39 39 weeks gestation of pregnancy; O16.4 Unspecified maternal hypertension, complicating childbirth
CPT/HCPCS: 36415; 80053; 85027; 85461; 86850; 86900; 86901; 90384; 82565; 84156; 84550; J2590; J2790; J3490

== ENCOUNTER 2022-08-01 15:46 | Outpatient (CLI) | payer MEDICAID, SELFPAY ==
[2022-08-01 11:50] LABS: HCT 37.3 % (36.0-46.0); HGB 12.1 g/dL (11.2-15.7); MCH 29.7 pg (27.0-33.0); MCHC 32.4 % (32.0-36.0); MCV 92 fL (80-95); MPV 9.7 fL (8.0-11.0); Platelet Count 489 10^3/uL (130-400); RBC 4.07 10^6/uL (3.93-5.22); RDW 14.7 % (11.7-14.6); RDW-SD 49.6 fL; WBC 9.91 10^3/uL (4.4-10.8)
[2022-08-01 12:07] LABS: ALT 65 U/L (14-59); AST 36 U/L (15-37); Albumin 3.2 g/dL (3.4-5.0); Alkaline Phosphatase 144 U/L (46-116); Anion Gap 7.5 mmol/L (3-11); BUN 11 mg/dL (7-18); Bilirubin, Total 0.3 mg/dL (0.2-1.0); CO2 29.5 mmol/L (21.0-32.0); CREATININE 0.8 mg/dL (0.55-1.02); Calcium 9.6 mg/dL (8.5-10.1); Chloride 104 mmol/L (98-107); Estimated GFR 101.59 (mL/min/1.73m2); Glucose 84 mg/dL (74-106); Potassium 3.9 mmol/L (3.5-5.1); Sodium 141 mmol/L (136-145); Total Protein 7.7 g/dL (6.4-8.2)
== END 2022-08-01 15:47 | disposition home or self-care (01) ==
LOC: LBO 15:46
PROVIDERS: Advanced Practice Midwife; PCP Nurse Practitioner Family; Visit Provider Internal Medicine Endocrinology, Diabetes & Metabolism
DX: O13.5 Gestational [pregnancy-induced] hypertension without significant proteinuria, complicating the puerperium; O72.1 Other immediate postpartum hemorrhage
CPT/HCPCS: 36415; 80053; 85027

== ENCOUNTER 2023-05-01 14:54 | Outpatient (CLI) | payer MEDICAID, SELFPAY ==
[2023-05-01 15:47] LABS: HCG Quant, Pregnancy 2192 mIU/mL (1-3)
== END 2023-05-01 14:55 | disposition home or self-care (01) ==
LOC: LBO 14:55
PROVIDERS: PCP Nurse Practitioner Family; Visit Provider Advanced Practice Midwife
DX: Z34.91 Encounter for supervision of normal pregnancy, unspecified, first trimester (principal); Z3A.01 Less than 8 weeks gestation of pregnancy
CPT/HCPCS: 36415; 84702

== ENCOUNTER 2023-05-03 02:36 | Outpatient (CLI) | payer MEDICAID, SELFPAY ==
[2023-05-03 15:42] LABS: HCG Quant, Pregnancy 5588 mIU/mL (1-3)
== END 2023-05-03 02:37 | disposition home or self-care (01) ==
LOC: LBO 02:36
PROVIDERS: PCP Nurse Practitioner Family; Visit Provider Advanced Practice Midwife
DX: Z34.91 Encounter for supervision of normal pregnancy, unspecified, first trimester (principal)
CPT/HCPCS: 36415; 84702

== ENCOUNTER 2023-06-20 05:19 | Outpatient (CLI) | payer MEDICAID, SELFPAY ==
[2023-06-20 14:54] LABS: Panorama Kit Sent via Fed Ex
[2023-06-20 14:58] LABS: Abs Immature Grans 0.03 10^3/uL (0.0-0.06); Absolute Basophil Count 0.04 10^3/uL (0.0-0.2); Absolute Eosinophil Count 0.15 10^3/uL (0.0-0.7); Absolute Lymphocyte Count 2.27 10^3/uL (1.2-3.4); Absolute Monocyte Count 0.59 10^3/uL (0.1-0.8); Absolute Neutrophil Count 6.42 10^3/uL (1.2-6.7); Basophils % 0.4; Eosinophils % 1.6; HCT 34.5 % (36.0-46.0); HGB 11.9 g/dL (11.2-15.7); Immature Grans % 0.3; Lymphocytes % 23.9; MCH 29.7 pg (27.0-33.0); MCHC 34.5 % (32.0-36.0); MCV 86 fL (80-95); MPV 10.3 fL (8.0-11.0); Monocytes % 6.2; Neutrophils % 67.6; Platelet Count 361 10^3/uL (130-400); RBC 4.01 10^6/uL (3.93-5.22); RDW 13.7 % (11.7-14.6); RDW-SD 42.7 fL
[2023-06-20 15:12] LABS: Glucose,1 Hr (Glucola) 124 mg/dL (80-140)
[2023-06-20 15:26] LABS: TSH (W/Ref FT4) 0.25 uIU/mL (0.36-3.74)
[2023-06-20 17:23] LABS: FREE T4 0.87 ng/dL (0.76-1.46)
[2023-06-20 22:07] LABS: Hepatitis B Surface Ag Negative (Negative)
[2023-06-20 22:44] LABS: Hepatitis C Ab w Rflx HCV PCR Negative (Negative)
[2023-06-20 23:17] LABS: HIV-1/2 Ag & Ab Screen Negative (Negative)
[2023-06-21 10:46] LABS: Varicella IgG Antibody Negative (See Note)
[2023-06-21 10:49] LABS: Rubella IgG Ab (UVM) Positive (See Note)
[2023-06-22 19:20] LABS: Syphilis IgG w/Reflex Nonreactive (Nonreactive)
== END 2023-06-20 05:20 | disposition home or self-care (01) ==
LOC: LBO 05:19
PROVIDERS: Advanced Practice Midwife; PCP Nurse Practitioner Family; Visit Provider Advanced Practice Midwife
DX: Z34.91 Encounter for supervision of normal pregnancy, unspecified, first trimester (principal)
CPT/HCPCS: 36415; 82950; 86787; 86803; 86850; 86900; 86901; 87340; 87389; 84439; 84443; 85025; 86762; 86780

== ENCOUNTER 2023-06-20 14:42 | Outpatient (REF) | payer MEDICAID, SELFPAY ==
[2023-06-23 15:08] LABS: Chlamydia Result Negative (Negative); GC Result Negative (Negative)
== END 2023-06-20 14:43 | disposition home or self-care (01) ==
LOC: LBN 14:42
PROVIDERS: PCP Nurse Practitioner Family; Visit Provider Advanced Practice Midwife
DX: Z34.91 Encounter for supervision of normal pregnancy, unspecified, first trimester (principal)
CPT/HCPCS: 87491; 87591; 87086

== ENCOUNTER → 2023-08-16 04:46 | Outpatient (CLI) | payer MEDICAID, SELFPAY ==
--- NOTE | 2023-08-16 07:30 | DI.US_ITS ---
Exam(s) US OB 2-3 TRIMESTER EXAM: US OB 2-3 TRIMESTER CLINICAL HISTORY: anatomy/morphology,z34.91. TECHNIQUE: Transabdominal obstetrical ultrasound was performed. COMPARISON: US POCUS EXAM from 05/30/2023 FINDINGS: There is a single viable intrauterine gestation with cardiac activity identified-139 bpm. Amniotic fluid: There is a normal amount of amniotic fluid. Placental location: The placenta is posterior grade 1,and appears to be low lying with the tip of the placenta just overlying the lateral aspect of the internal cervical os. ANATOMY: A 3 vessel umbilical cord is seen. A four-chamber cardiac view was obtained. Right and left ventricular outflow tracts were imaged. There are no obvious abnormalities of the spinal column evident. There is no obvious abnormal ity of the anterior abdominal wall. stomach and urinary bladder are identified and there is no evidence of hydronephrosis. No abnormalities of the upper lip region are identified. No evidence of choroid plexus cysts i n the brain. Dating parameters place this at approximately 20 weeks gestational age. BPD measures 20 weeks and 2 days HC measures 19 weeks and 5 days AC measures 20 weeks FL measures 19 weeks and 5 days Estimated weight is 320 gm-0 pounds, 11 ounces Fetus is at the 32 percentile on the Hadlock scale. IMPRESSION:: Single viable intrauterine gestation which is approximately 20 weeks gestational age, i mplying an SADA of 01/03/2024. There are no obvious anomalies evident on today's study. The placenta is posterior there is evidence of placenta previa which will require follow-up in tr imester. There is a normal amount of amniotic fluid. DATA REPOSITORY:
== END ==
PROVIDERS: PCP Nurse Practitioner Family; Visit Provider Advanced Practice Midwife
DX: Z34.92 Encounter for supervision of normal pregnancy, unspecified, second trimester (principal); Z3A.20 20 weeks gestation of pregnancy
CPT/HCPCS: 76805

== ENCOUNTER 2023-10-17 20:50 | Observation (INO) | payer MEDICAID, SELFPAY ==
[2023-10-17] VITALS (7 sets, daily range): BP systolic 135–149; BP diastolic 76–79; PULSE 67–80; RESP 18; TEMP 36.6–37.1
--- NOTE | 2023-10-17 | DI.US_ITS ---
Exam(s) US ABDOMEN RENAL EXAM: US ABDOMEN RENAL CLINICAL HISTORY: left flank pain TECHNIQUE: Ultrasound abdomen performed using standard protocol. COMPARISON: No exams were available for comparison FINDINGS: ABDOMINAL AORTA AND IVC: Visualized portions normal caliber. PANCREAS: Pancreatic body measures 3.9 cm. The pancreas is otherwise unremarkable. No fluid collect ions are seen sonographically. LIVER: Normal. Hepatopetal flow in the Portal Vein. The liver measures 18.3 cm long. GALLBLADDER: Status post cholecystectomy. BILIARY SYSTEM: Common bile duct measures < 7 mm. No intrahepatic biliary ductal dilation. SPLEEN: Not enlarged. ASCITES: None seen. Renal size in cm: Right: 12.4. Left: 13.5. Echogenicity: Normal. Hydronephrosis: There is no right hydronephrosis. There is [id number] left hydronephrosis. Cyst or mass: No. Nephrolithiasis: No. Other findings: None. Bladder:There is mild thickening of the wall of the urinary bladder. This may be due to underdistent ion. Ureteral jets: Right: Not visualized on this examination. Left: Not visualized on this examination. Prevoid vol:70 cc Postvoid vol:Not performed on this examination. Renal color flow: Symmetric and within normal limits. IMPRESSION: 1. [id number]-[id number] left hydronephrosis. No nephrolithiasis. 2. Mild thickening of the wall of the urinary bladder. While this may be due to underdistention, cys titis cannot be excluded. Please correlate clinically. 3. Mild prominence of the body of the pancreas. No peripancreatic fluid collections are seen. Pleas e correlate clinically for evidence of pancreatitis. DATA REPOSITORY:
[2023-10-17] MEDS: Ondansetron O.D.T. 4 MG TABEF 8 MG PO (20:16)
[2023-10-17] MEDS: HYDROmorphone 2 MG TAB PO (20:32)
--- NOTE | 2023-10-17 20:37 | HPE_ITS ---
Date of service: 10/17/23 Time of Service: 20:37 Assessment and Plan Assessment and plan (1) Acute left flank pain: Status: Acute Assessment and plan: A: 32 yo @ 29 wks, sudden onset left flank pain No labor, NST reactive, obstetrically stable, r/o nephrolithiasis s/p cholecystectomy and appendectomy P: Discussed differential and plan of care with Dr. Jorge CBC, CMP, amylase, lipase, UC&S Dilaudid 2 mg PO, Zofran 8 mg ODT Renal and abdominal ultrasound this evening (2) 29 weeks gestation of : Status: Acute OB-HPI Labor/Delivery History of Present Illness Reason for Visit: NST Chief Complaint: Other (left flank pain, onset this morning, constant crampy pain, worsening this afternoon, nausea and vomiting prior to arrival, denies contractions or ROM or bleeding, denies dysuria.). SADA Calculator Estimated Delivery Date Method Current WG Current Estimate 01/02/24 Manual 29w 0d 3rd dating ultrasound, date will be used for SADA Other Estimates 12/08/23 LMP (Certain) 32w 4d 12/30/23 Ultrasound #1 29w 3d 01/06/24 Ultrasound #2 28w 3d History of Present Expected Delivery Route/Plan - CNM BG Varicella Non-Immune, pt aware, declines vaccine Specific Issues/Plan 1. BMI 33, early [id number] 2. Appendectomy 9 wks @ [facility] 3. cfDNA LR female, Previous CF neg, declines SMA, Declines AFP . 4. BMI 33.5 and Mother had pre-eclampsia, declines low dose ASA 5. Placenta previa @ 20 wks, pt desires [facility] f/up scan and MFM consult 5a. Level 2 scan done 09/12, nml anatomy, no previa, posterior placenta Assessment: History Reviewed & Current Review of Systems Narrative: ROS noncontributory other than HPI PFSH All Active Problems (Updated 10/17/23 @ 20:44 by Stefani Blake) 29 weeks gestation of (Acute) Acute left flank pain (Acute) (Acute) Maternal varicella, non-immune (Acute) History of hemorrhage, currently (Acute) History of gestational hypertension (Acute) BMI 31.0-31.9,adult (Acute) Medical History (Updated 07/23/24 @ 20:44 by Stefani Blake) Placenta previa centralis in second trimester resolved @ 24 wks per [facility] level scan 09/13/23 at early stage Biliary colic Family history of hypothyroidism Surgical History Status post appendectomy At [facility] 06/02/23 Hx of cholecystectomy [place] teeth removed Family History Mother Thyroid disorder hypothyroid History of hysterectomy for benign disease fibroids Hx laparoscopic cholecystectomy Preeclampsia Gallbladder disease Sister Raynaud's disease Thyroid disorder hypothyroid, biopsy taken Maternal Grandmother Hypertension Parkinson's disease Brain aneurysm Maternal Grandfather Hypertension Myocardial infarction Paternal Grandmother Diabetes Hypertension Breast cancer Paternal Grandfather Hx of cholecystectomy Brother Liver disease Father Gallbladder disease Sister No problems noted. Sister No problems noted. Brother No problems noted. Brother Hypothyroid Sister No problems noted. Daughter No problems noted. Social History Smoking/Tobacco Use Status: Never Second Hand Exposure: Yes Smoking risk assessment performed?: Yes Alcohol Intake: current Alcohol Intake frequency: holidays/special occasions only Details: social, 1x/mos. w/o use w/ knowledge of . Drug use: Never Substance use type: does not use Adopted: No Caregiver/Support person: No Foster care: No Household members: spouse and children Housing: house Number of Children: 0 Communication Needs: Corrective Lenses Do you need help understanding health information?: Never current occupation: nurse [employer]. Pets and animals: Yes Pets and animals: dog(s) Sexually active: Yes Do you think of yourself as: straight/heterosexual Current gender identity: female What is your relationship status?: How often do you talk on the phone with friends or family?: three or more times per week How often do you get together with friends or relatives?: once per week How often do you attend jew or mandaen services?: 4 or more times per year Do you belong to any clubs or organized social groups?: yes Panel score (0-1 are the most socially isolated patients): 4 What type of physical activity do you participate in: walking, weight lifting and other Frequency: daily Sadaf/Bahai: Other Special sadaf needs: No Agree to transfusion: Yes Seatbelt use: always Helmet use: Yes (not w/ bicycle, enc. to use at all times.) Helmet use: sometimes Drive intox or ride w/intox delivery driver/customer service: No Water heater temp set <120 deg: No (unknown, will check.) Working smoke detector in home: Yes Fire extinguisher in home: Yes Carbon monox detector in home: Yes Firearms in home: Yes (yes,) Do you feel safe at home: Yes Do you feel safe in your relationship?: Yes Victim of physical abuse: No Victim of emotional abuse: No Victim of sexual abuse: No Female Reproductive History Menstrual Age of Menarche: 13 Duration of menses: 3-5 days control method: none History History 5 Para 4 Hx # Term Pregnancies 4 Multiple births 0 Hx # Pregnancies 0 Ectopic pregnancies 0 AB induced 0 Hx Number of Living Children 4 AB spontaneous 0 Past Pregnancies Del. Date GA/Weeks # Preg Succ Route Wgt Sex Labor Lgth Anesth esia Location [facility] 09/14/18 41 No vaginal 9 lb [address] [facility] Tripp Carr CNM 11/07/19 39 No vaginal 8 lb 9 oz [address] [facility] Froylan Powers CNM 02/08/21 41 No Yes vaginal 8 lb 12.03 oz Female 8 hours MICHELL Hollingsworth 07/24/22 39 No Yes vaginal 6 lb 12.64 oz Male 6hrs 18min MICHELL Hollingsworth hemorrhage Delivery Date: 09/14/18 Last Updated by: Yana Blake IOL for postdates and PROM, prolonged labor> 20 hrs, [facility] aug, epidural Delivery Date: 11/07/19 Last Updated by: Yana Blake IOL for unstable lie, epidural, had decreased FHT with bright red bleeding right before delivery, tight nuchal cord, first degree Delivery Date: 02/08/21 Last Updated by: Irina Powers CNM Spontaneous labor, Tub . Delivery Date: 07/24/22 Last Updated by: RICHA Llanos; induction of labor due to unstable lie of fetus; precipitous delivery; EBL 1100cc Meds Allergies and Home Medications Allergies Allergy/AdvReac Type Severity Reaction Status Date / Time house dust Allergy Mild Other (See Verified 09/14/23 12:54 Comment) jaison Allergy Hives Verified 09/14/23 12:54 soap Allergy Blisters Verified 09/14/23 12:54 on hands pollen Allergy Intermediate Other (See Uncoded 09/14/23 12:54 Comment) Home Medications ?Medication ?Instructions ?Recorded ?Confirmed ?Type prenat.vits,jil,uxo-qqst-gqjrn 1 tab PO DAILY 02/05/18 08/19/23 History magnesium 250 mg tablet 250 mg PO DAILY PRN 09/28/18 08/19/23 History cholecalciferol (vitamin D3) 100 1,000 unit PO PRN 07/26/19 08/19/23 History mcg (4,000 unit) capsule sennosides 8.6 mg-docusate sodium 1 tab-cap PO .COMPLEX PRN 10/28/19 08/19/23 History 50 mg capsule (Senna Plus) ascorbate calcium (vitamin C) 500 1 g PO DAILY PRN 01/25/21 08/19/23 History mg tablet loratadine 10 mg tablet 10 mg PO DAILY 03/23/21 08/19/23 History zinc gluconate 50 mg tablet 30 mg PO DAILY 06/20/22 08/19/23 History Exam Physical Exam Vital signs: Temp Pulse Resp BP 97.8 F 71 18 149/79 H 10/17/23 19:51 10/17/23 19:51 10/17/23 19:51 10/17/23 19:51 Vital Signs Reviewed: Yes Constitutional Constitutional: moderate distress, average body habitus and cooperative Detailed Labor and Delivery Exam Amniotic Membrane Status: Intact Contraction Frequency(min): none (uterine irritability per toco, not appreciated by pt) Fetus A Heart Rate Baseline: 130 Monitor Accelerations: 15 X 15 Monitor Decelerations: None Variability: Moderate (6-25 BPM) Categories: Category I HEENT Exam HEENT Exam: Normal Neck Exam Neck Exam: Normal Chest/Brest/Axilla Exam Chest Exam: Normal Breast Exam Breast Exam: Not Done Respiratory Exam Respiratory Exam: Normal Cardiovascular Exam Cardiovascular Exam: Normal Abdominal Exam Abdominal Exam: Normal (gravid, nontender) Detailed Abdominal Exam Comments: Left flank pain noted, below rib cage and above hip bone. CVAT negative. No lower abd pain Rectal Exam Rectal Exam: Normal Exam Exam: Not Done Extremities Exam Extremities Exam: Normal Back/Spine/Pelvis Exam Back Exam: Normal (neg CVAT) Skin Exam Skin Exam: Normal Neurological Exam Neurological Exam: Normal Psychiatric Exam Psychiatric Exam: Normal (pt tearful from pain) Results Results Group Beta Strep: Not Done Blood Type: O- Rubella Status: Immune Varicella Immunity: Nonimmune Risk Assessment Risk for Shoulder Dystocia Historical/Initial OB: POSITIVE FOR: Pre- BMI>30 and Previous Macrosomia; NEGATIVE FOR: Pelvic Abnormality or Previous Shoulder Dystocia Counseling: proven to Date/Initial: 05/2623 Risk for Pre-Eclampsia Daily Dose ASA Indicated: Yes (pt declines after counseling) Date Initiated/Initials: 06/20/23 Yes, if one or more: POSTIVE FOR: Hx Pre-E/Gest HTN; NEGATIVE FOR: Chronic HTN, Multiple Gestation, Pre-gestational DM, Renal Disease, Systemic Lupus or APA Syndrome Yes, if 2 or more: POSITIVE FOR: Mother/Sister w/ Pre-E; NEGATIVE FOR: Nulliparity, Age>= 35 yrs, >10yr btwn pregnancies, BMI>30, ethinicty or Previous IUGR Risk for Post- Hemorrhage Initial: NEGATIVE FOR: Multiple Gestation, Previous PPH, Known Clotting Deficiency, Grand Multiparity or Anticoagulation Risks Reviewed Risks Reviewed Upon Admission: Yes
[2023-10-17 20:39] LABS: Abs Immature Grans 0.16 10^3/uL (0.0-0.06); Absolute Basophil Count 0.05 10^3/uL (0.0-0.2); Basophils % 0.3 %; Eosinophils % 0.1 %; HCT 36.5 % (36.0-46.0); HGB 11.9 g/dL (11.2-15.7); MCH 28.8 pg (27.0-33.0); MCHC 32.6 % (32.0-36.0); MCV 88 fL (80-95); MPV 10.7 fL (8.0-11.0); Monocytes % 3.6 %; Platelet Count 268 10^3/uL (130-400); RBC 4.13 10^6/uL (3.93-5.22); RDW 13.7 % (11.7-14.6); RDW-SD 44.2 fL
[2023-10-17 20:40] LABS: Absolute Eosinophil Count 0.02 10^3/uL (0.0-0.7); Absolute Lymphocyte Count 1.34 10^3/uL (1.2-3.4); Absolute Neutrophil Count 14.62 10^3/uL (1.2-6.7)
[2023-10-17 20:56] LABS: ALT 16 U/L (14-59); AST 14 U/L (15-37); Albumin 2.9 g/dL (3.4-5.0); Alkaline Phosphatase 108 U/L (46-116); Amylase 74 U/L (25-115); Anion Gap 11.5 mmol/L (3-11); BUN 8 mg/dL (7-18); Bilirubin, Total 0.32 mg/dL (0.2-1.0); CO2 23.5 mmol/L (21.0-32.0); CREATININE 0.9 mg/dL (0.55-1.02); Chloride 102 mmol/L (98-107); Estimated GFR 87.65 (mL/min/1.73m2); Glucose 115 mg/dL (74-106); Lipase 38 U/L (16-77); Potassium 3.8 mmol/L (3.5-5.1); Sodium 137 mmol/L (136-145); Total Protein 7.3 g/dL (6.4-8.2)
--- NOTE | 2023-10-17 21:11 | W.OBNST ---
Date of service: 10/17/23 Time of Service: 21:11 NST Evaluation Reason for NST Reasons for Nonstress Test: OTHER, SEE COMMENT Reason for NST Other: left side pain Gestational Age Gestational Age in Weeks and Days: 29 Weeks and 0Days Test and Monitor Explained Test/Monitor Explained: Test Explained, Monitor Explained and Patient Verbalized Understanding Vital Signs Blood Pressure: 149/79 Pulse: 71 Temperature: 208.0 F Urine Results Urine Protein: Negative Urine Ketones: Positive Urine Glucose: Negative Urine Blood: Negative NST Information Date on Monitor: 10/17/23 Time on Monitor: 19:27 Date off Monitor: 10/17/23 Time off Monitor: 20:30 Total Time on Monitor: 63 NST Interventions: None and PO Hydration NST Evaluation Patient States Movement: Present FHR Baseline: 130 Variability: Moderate 6-25 bpm Accelerations: 15x15 Decelerations: None NST Results: Reactive Note Ultrasound Done: N/A. NST Note NST Reviewed and Verified by: Stefani Blake
--- NOTE | 2023-10-17 21:55 | PGE_ITS ---
Date of Service Date of service: 10/17/23 Time of Service: 21:55 Assessment and Plan Assessment and plan (1) Acute left flank pain: Status: Acute Assessment and plan: A: Left hydronephrosis per ultrasound, no stones Final report pending LFT's and other labs nml, WBC 16.8; afebrile, normotensive P: Reviewed findings with Dr. Jorge Pt to stay overnight on observation IV to be initiated for hydration and medication Dilaudid 2 mg IV q4H prn, Zofran 4 mg IV q6H prn Dr. Jorge to evaluate in morning, if pain continues consider surgical consult Subjective Subjective Interval history since last seen: Dilaudid helping ease her pain, feeling a little bit hungry and tired. Time Spent with Patient Time Spent with Patient: 25-34 minutes Time was spent: preparing to see the patient(eg.review tests), obtaining and/or reviewing separately otained hiistory, ordering medications,tests, procedures, referring, communicating with other health foster care case manager and counseling the patient
--- NOTE | 2023-10-17 22:02 | DI.VRAD_ITS ---
PROCEDURE INFORMATION: Exam: US Abdomen Complete Exam date and time: 10/17/2023 8:42 PM Age: 32 years old Clinical indication: Abdominal pain; Flank; Left upper quadrant (luq); ; Prior surgery; Surgery date: 6+ months; Surgery type: Cholecestomy TECHNIQUE: Imaging protocol: Real-time ultrasound of the abdomen with image documentation. Complete exam. COMPARISON: US ABDOMEN LIMITED 06/11/2022 2:56 PM FINDINGS: Liver: Liver upper limits of normal in size, 18.3 cm craniocaudal. No focal hepatic lesions are identified. No intrahepatic biliary ductal dilatation. Hepatopedal flow demonstrated in the main portal vein. Gallbladder: Prior cholecystectomy. Biliary ducts: Nondilated common bile duct measuring 4.6 mm diameter. Pancreas: Question mild thickening and heterogeneity in the pancreatic body, correlate clinically for evidence of pancreatitis. No adjacent fluid or fluid collections. Right kidney: The right kidney measures 12.4 cm in length. No hydronephrosis or gross nephrolithiasis. Normal cortical thickness and corticomedullary differentiation. No cystic or solid renal lesions. No perinephric abnormalities. Left kidney: The left kidney measures 13.5 cm in length. There is moderate left hydronephrosis. No urolithiasis is identified sonographically. Normal cortical thickness and corticomedullary differentiation. No cystic or solid renal lesions. No perinephric abnormalities. Spleen: The spleen is normal in appearance, measuring 12.5 cm maximum dimension. Urinary bladder: Question mild bladder wall thickening which may relate to partially contracted state although correlate with UA for evidence of cystitis. Bladder volume 70 mL. Bladder jets are not identified. Intraperitoneal space: No free fluid was identified. Aorta: Visualized segments of the abdominal aorta were unremarkable. Inferior vena cava: Visualized segments of the IVC are unremarkable. IMPRESSION: 1. Moderate left hydronephrosis. No gross associated urolithiasis. This might be due to hydronephrosis of but is nonspecific. Ureteral jets are not identified in the urinary bladder on either side. There is no right-sided hydronephrosis. 2. Urinary bladder is partially contracted, which may account for the mildly thick-walled appearance although correlate with UA for evidence of cystitis. 3. Borderline hepatomegaly. 4. Pancreatic body demonstrates questionable mild thickening and heterogeneity, partially obscured by bowel gas. No ductal dilatation. Correlate with lipase for evidence of pancreatitis. Dictated and Authenticated by: Sergo Mishra MD. Ordering:HAKEEM Ko MD
[2023-10-17] MEDS: Lactated Ringers 1,000 ML 125 ML IV (22:45)
[2023-10-17] MEDS: Normal Saline Flush 10 ML SYR IVP (22:45)
[2023-10-18] MEDS: Ondansetron 4 MG/2 ML VIAL IVP (00:52)
[2023-10-18] MEDS: HYDROmorphone 2 MG/ML SYR IVP (00:53)
[2023-10-18 03:20] VITALS: BP 130/90; PULSE 90; RESP 18; TEMP 36.1; O2SAT 98
[2023-10-18] MEDS: ACETAMINOPHEN 1,000 MG/100 ML BTL 400 MG IVPB (07:15)
[2023-10-18] MEDS: Lactated Ringers 1,000 ML 125 ML IV (07:23)
[2023-10-18 07:30] VITALS: BP 120/76; PULSE 79; RESP 16; TEMP 36.6; O2SAT 99
[2023-10-18 09:20] VITALS: BP 122/65; PULSE 79; TEMP 36.6
--- NOTE | 2023-10-18 10:09 | W.PM.PROGNOT ---
Date of Service Date of service: 10/18/23 Time of Service: 10:09 Assessment and Plan Assessment and plan (1) Acute left flank pain: Status: Acute Assessment and plan: A: pain & nausea resolved with passage of 2 small stones P: NST this morning, reviewed with Dr. Jorge Discharge to home, kidney stone prevention measures discussed with pt Reschedule for RhoGam and glucola screening later this week. (2) Kidney stone on left side: Status: Acute Assessment and plan: passed and resolved Subjective Subjective Interval history since last seen: Pt required dilaudid and zofran through the night, IV tylenol was also prescribed Objective Objective Narrative Objective Narrative: Pt required dilaudid and zofran through the night, IV tylenol was also prescribed At 0630 pt's pain disappeared, RN had been straining urine in case of a stone, 2 small dark colored calcifications were found in strainer after 0600 void Pt now desires discharge to home Time Spent with Patient Time Spent with Patient: <25 minutes Time was spent: preparing to see the patient(eg.review tests), obtaining and/or reviewing separately otained hiistory and counseling the patient
--- NOTE | 2023-10-18 10:14 | DSE_ITS ---
Date of service: 10/18/23 Time of Service: 10:14 DS: Diagnosis Discharge Diagnosis (1) Acute left flank pain: Status: Acute (2) Kidney stone on left side: Status: Acute Discharge Plan Disposition Patient Disposition: Home Condition: Good Discharge Details Reason For Visit: Left Flank Pain Admit Date/Time: 10/17/23 20:50 Admit Provider: Edwige Jorge Attending Provider: Stefani Blake Primary Care Provider: Natalia Anayah Hospital Course Hospital Course: Pt admitted for outpt observation overnight for pain management after labs and renal ultrasound, passed 2 small stones early this morning and pain has disappeared, discharged to home today. Home Meds and New Rx's Prescriptions: No Action prenat.vits,jil,zez-lizd-czlvb tablet 1 tab PO DAILY zinc gluconate 50 mg tablet 30 mg PO DAILY magnesium 250 mg tablet 250 mg PO DAILY PRN cholecalciferol (vitamin D3) 100 mcg (4,000 unit) capsule 1,000 unit PO PRN Senna Plus 8.6-50 mg capsule 1 tab-cap PO .COMPLEX PRN Rx Instructions: 1 tab-cap PO every other day; PRN; ascorbate calcium (vitamin C) 500 mg tablet 1 g PO DAILY PRN loratadine 10 mg tablet 10 mg PO DAILY Discharge Instructions Activity:: Activity as Tolerated Equipment/Supplies:: No Equipment Needed Diet:: Normal Diet Discharge Orders Discharge Orders: Discharge Order (Routine); Ordered 10/18/23 Ordered By: Stefani Blake Discharge Data Discharge Date/Time-TO BE ENTERED AT DEPARTURE: 10/18/23 10:11 OB:DS Summary Contraception Discussed Contraception Discussed: No (pt undelivered), Status at Discharge Functional status at discharge: independent ambulation Overall status at discharge: patient is back to baseline Mental Status: mental status grossly normal Speech and Movement: speech and movement normal and speech clear Mood: congruent mood Affect: normal affect Quality:SDOH Health Related Social Needs: No Data to Display Exam Physical Exam Vital signs: Temp Pulse Resp BP Pulse Ox 97.9 F 79 16 120/76 99 10/18/23 07:30 10/18/23 07:30 10/18/23 07:30 10/18/23 07:30 10/18/23 07:30 Constitutional Constitutional: moderate distress, average body habitus and cooperative HEENT Exam HEENT Exam: Normal Neck Exam Neck Exam: Normal Respiratory Exam Respiratory Exam: Normal Cardiovascular Exam Cardiovascular Exam: Normal Rectal Exam Rectal Exam: Normal Back/Spine/Pelvis Exam Back Exam: Normal (neg CVAT) Skin Exam Skin Exam: Normal Neurological Exam Neurological Exam: Normal Psychiatric Exam Psychiatric Exam: Normal [facility] All Active Problems (Updated 10/18/23 @ 10:12 by Stefani Blake) Kidney stone on left side (Acute) 29 weeks gestation of (Acute) Acute left flank pain (Acute) (Acute) Maternal varicella, non-immune (Acute) History of hemorrhage, currently (Acute) History of gestational hypertension (Acute) BMI 31.0-31.9,adult (Acute) Medical History (Updated 10/18/23 @ 10:12 by Stefani Blake) Placenta previa centralis in second trimester resolved @ 24 wks per [facility] level scan 09/13/23 at early stage Biliary colic Family history of hypothyroidism Surgical History Status post appendectomy At [facility] 06/02/23 Hx of cholecystectomy [place] teeth removed Family History Mother Thyroid disorder hypothyroid History of hysterectomy for benign disease fibroids Hx laparoscopic cholecystectomy Preeclampsia Gallbladder disease Sister Raynaud's disease Thyroid disorder hypothyroid, biopsy taken Maternal Grandmother Hypertension Parkinson's disease Brain aneurysm Maternal Grandfather Hypertension Myocardial infarction Paternal Grandmother Diabetes Hypertension Breast cancer Paternal Grandfather Hx of cholecystectomy Brother Liver disease Father Gallbladder disease Sister No problems noted. Sister No problems noted. Brother No problems noted. Brother Hypothyroid Sister No problems noted. Daughter No problems noted. Social History Smoking/Tobacco Use Status: Never Second Hand Exposure: Yes Smoking risk assessment performed?: Yes Alcohol Intake: current Alcohol Intake frequency: holidays/special occasions only Details: social, 1x/mos. w/o use w/ knowledge of . Drug use: Never Substance use type: does not use Adopted: No Caregiver/Support person: No Foster care: No Household members: spouse and children Housing: house Number of Children: 0 Communication Needs: Corrective Lenses Do you need help understanding health information?: Never current occupation: nurse [employer]. Pets and animals: Yes Pets and animals: dog(s) Sexually active: Yes Do you think of yourself as: straight/heterosexual Current gender identity: female What is your relationship status?: How often do you talk on the phone with friends or family?: three or more times per week How often do you get together with friends or relatives?: once per week How often do you attend moravian or confucianist services?: 4 or more times per year Do you belong to any clubs or organized social groups?: yes Panel score (0-1 are the most socially isolated patients): 4 What type of physical activity do you participate in: walking, weight lifting and other Frequency: daily Sadaf/Jainism: Other Special sadaf needs: No Agree to transfusion: Yes Seatbelt use: always Helmet use: Yes (not w/ bicycle, enc. to use at all times.) Helmet use: sometimes Drive intox or ride w/intox jinrikisha driver: No Water heater temp set <120 deg: No (unknown, will check.) Working smoke detector in home: Yes Fire extinguisher in home: Yes Carbon monox detector in home: Yes Firearms in home: Yes (yes,) Do you feel safe at home: Yes Do you feel safe in your relationship?: Yes Victim of physical abuse: No Victim of emotional abuse: No Victim of sexual abuse: No Female Reproductive History Menstrual Age of Menarche: 13 Duration of menses: 3-5 days control method: none History History 5 Para 4 Hx # Term Pregnancies 4 Multiple births 0 Hx # Pregnancies 0 Ectopic pregnancies 0 AB induced 0 Hx Number of Living Children 4 AB spontaneous 0 Past Pregnancies Del. Date GA/Weeks # Preg Succ Route Wgt Sex Labor Lgth Anesth esia Location [facility] 09/14/18 41 No vaginal 9 lb 3 oz Female ashley Carr CNM 11/07/19 39 No vaginal 8 lb 9 oz Male 24 hours ashley Powers CNM 02/08/21 41 No Yes vaginal 8 lb 12.03 oz Female 8 hours MICHELL Hollingsworth 07/24/22 39 No Yes vaginal 6 lb 12.64 oz Male 6hrs 18min MICHELL Hollingsworth hemorrhage Delivery Date: 09/14/18 Last Updated by: Yana Blake IOL for postdates and PROM, prolonged labor> 20 hrs, [facility] aug, epidural Delivery Date: 11/07/19 Last Updated by: Yana Blake IOL for unstable lie, epidural, had decreased FHT with bright red bleeding right before delivery, tight nuchal cord, first degree Delivery Date: 02/08/21 Last Updated by: Irina Powers CNM Spontaneous labor, Tub . Delivery Date: 07/24/22 Last Updated by: RICHA Llanos; induction of labor due to unstable lie of fetus; precipitous delivery; EBL 1100cc DS: Data Vitals/I&O Vitals and I&O: Vital Signs Temperature 97.9 F 10/18/23 07:30 Temperature 97.9 F 10/18/23 09:20 Temperature Source Oral 10/18/23 07:30 Pulse 79 10/18/23 07:30 Pulse 79 10/18/23 09:20 Pulse Rhythm Regular 10/18/23 07:53 Respiratory Rate 16 10/18/23 07:30 Blood Pressure 120/76 10/18/23 07:30 Blood Pressure 122/65 10/18/23 09:20 Blood Pressure Mean 90 10/18/23 07:30 Pulse Oximetry 99 10/18/23 07:30 Oxygen Delivery Method Room Air 10/17/23 19:51 Oxygen Flow Rate 0 10/17/23 19:51 Pain Level 0 10/18/23 07:36 Intake & Output 10/17/23 10/17/23 10/18/23 11:59 23:59 11:59 Intake Total 360 / 360 1500 / 1500 Output Total 100 / 100 1200 / 1200 Balance 260 / 260 300 / 300 Weight 190 lb 6 oz Intake: IV 1000 / 1000 Oral 360 / 360 500 / 500 Output: Urine 100 / 100 1200 / 1200 Other: Urine Color Light Symone Urine Appearance Stones/Calculi Urine Odor None Voiding Methods Toilet Data Completed and Pending Labs on day of discharge: Labs from last 24 hours 10/17/23 20:29 WBC 16.80 H RBC 4.13 Hgb 11.9 Hct 36.5 MCV 88 MCH 28.8 MCHC 32.6 RDW 13.7 Plt Count 268 MPV 10.7 Immature Gran % 1.0 Neutrophils % 87.0 Lymphocytes % 8.0 Monocytes % 3.6 Eosinophils % 0.1 Basophils % 0.3 Nucleated RBC % 0.0 Absolute Neutrophils 14.62 H Absolute Lymphocytes 1.34 Absolute Monocytes 0.60 Absolute Eosinophils 0.02 Absolute Basophils 0.05 Sodium 137 Potassium 3.8 Chloride 102 Carbon Dioxide 23.5 Anion Gap 11.5 H BUN 8 Creatinine 0.9 Est GFR (CKD-EPI 2020) 87.65 Glucose 115 H Calcium 9.0 Total Bilirubin 0.32 AST 14 L ALT 16 Alkaline Phosphatase 108 Total Protein 7.3 Albumin 2.9 L Amylase 74 Lipase 38 10/17/23 20:29 Urine - Clean Catch Urine Culture - Pending Preliminary micro results at discharge 10/17/23 20:29 Urine Culture - Pending Urine - Clean Catch
[2023-10-18 10:16] VITALS: BP 122/65; PULSE 79; TEMP 36.6
--- NOTE | 2023-10-18 10:16 | W.OBNST ---
Date of service: 10/18/23 Time of Service: 10:16 NST Evaluation Reason for NST Reasons for Nonstress Test: OTHER, SEE COMMENT Reason for NST Other: left side pain Gestational Age Gestational Age in Weeks and Days: 29 Weeks and 1Days Test and Monitor Explained Test/Monitor Explained: Test Explained, Monitor Explained and Patient Verbalized Understanding Vital Signs Blood Pressure: 122/65 Pulse: 79 Temperature: 97.9 F Urine Results Urine Protein: Negative Urine Ketones: Positive Urine Glucose: Negative Urine Blood: Negative NST Information Date on Monitor: 10/18/23 Time on Monitor: 09:17 Date off Monitor: 10/18/23 Time off Monitor: 09:47 Total Time on Monitor: 30 NST Interventions: None and PO Hydration NST Evaluation Patient States Movement: Present FHR Baseline: 130 Variability: Moderate 6-25 bpm Accelerations: 10x10 Decelerations: None NST Results: Reactive Note Ultrasound Done: N/A. NST Note Note: discharged home today f/up as scheduled NST Reviewed and Verified by: Stefani Blake
== END 2023-10-18 10:11 | disposition home or self-care (01) ==
LOC: BCD 21:13 → OBS 22:44
PROVIDERS: Admitting Provider Obstetrics & Gynecology; PCP Nurse Practitioner Family; Visit Provider Advanced Practice Midwife
DX: O26.893 Other specified pregnancy related conditions, third trimester (principal); N13.2 Hydronephrosis with renal and ureteral calculous obstruction; Z3A.29 29 weeks gestation of pregnancy; R10.9 Unspecified abdominal pain
CPT/HCPCS: 76770; 80053; 83690; 96360; 96361; 96365; 96366; 96375; 59025; 76700; 82150; 85025; 87086; G0378; J0131; J1170; J2405

== ENCOUNTER 2023-10-20 01:50 | Outpatient (CLI) | payer MEDICAID, SELFPAY ==
[2023-10-20 11:11] LABS: HCT 34.6 % (36.0-46.0); HGB 11.2 g/dL (11.2-15.7); MCH 28.9 pg (27.0-33.0); MCHC 32.4 % (32.0-36.0); MCV 89 fL (80-95); MPV 10.3 fL (8.0-11.0); Platelet Count 262 10^3/uL (130-400); RBC 3.87 10^6/uL (3.93-5.22); RDW 13.9 % (11.7-14.6); RDW-SD 45.1 fL; WBC 9.17 10^3/uL (4.4-10.8)
[2023-10-20 12:53] LABS: Glucose,1 Hr (Glucola) 116 mg/dL (80-140)
== END 2023-10-20 01:51 | disposition home or self-care (01) ==
LOC: LBO 01:51
PROVIDERS: Advanced Practice Midwife; PCP Nurse Practitioner Family; Visit Provider Advanced Practice Midwife
DX: Z34.93 Encounter for supervision of normal pregnancy, unspecified, third trimester (principal)
CPT/HCPCS: 36415; 82950; 85027; 86850; 90384

== ENCOUNTER 2023-12-06 15:03 | Outpatient (REF) | payer MEDICAID, SELFPAY | END 2023-12-06 15:04 | disposition home or self-care (01) | LOC: LBN 15:03 | PROVIDERS: PCP Nurse Practitioner Family; Visit Provider Advanced Practice Midwife | DX: Z34.93 Encounter for supervision of normal pregnancy, unspecified, third trimester (principal) | CPT/HCPCS: 87081 ==

== ENCOUNTER 2024-01-09 08:11 | Inpatient (IN) | payer MEDICAID, SELFPAY ==
[2024-01-09] VITALS (234 sets, daily range): BP systolic 117–171; BP diastolic 65–87; PULSE 0–151; RESP 16–18; TEMP 36.4–37.5; O2SAT 98; BMI 36.5
--- NOTE | 2024-01-09 09:15 | W.PM.OBHPL1 ---
Date of service: 01/09/24 Time of Service: 09:15 Assessment and Plan Assessment and plan (1) 41 weeks gestation of : Status: Acute (2) Encounter for induction of labor: Status: Acute Assessment and plan: A: 33 yo @ 41 wks, IOL for post dates GBS negative, category 1 tracing, campbell score of 4 Low risk for SD, increased risk for PPH Pt expects to choose epidural anesthesia while on pitocin drip P: Given multipara status, will begin with pitocin induction Admit to BC, CBC, T&S, IV access initiation Dr. Salas available for consultation Anticipate OB-HPI Labor/Delivery History of Present Illness Reason for Visit: Induction for Postdates Chief Complaint: Scheduled Induction of Labor Indication for Induction: Post Date. SADA Calculator Estimated Delivery Date Method Current WG Current Estimate 01/02/24 Manual 41w 0d 3rd dating ultrasound, date will be used for SADA Other Estimates 12/08/23 LMP (Certain) 44w 4d 12/30/23 Ultrasound #1 41w 3d 01/06/24 Ultrasound #2 40w 3d History of Present Expected Delivery Route/Plan - CNM FOB/ - Fabricio BG Varicella Non-Immune, pt aware, declines vaccine Would like a waterbirth again, but ok w/epidural, nitrous GBS negative Specific Issues/Plan 1. BMI 33, early fxjkvfl=612; 29 wk tsqteyr=108 2. Appendectomy 9 wks @ [facility] 3. cfDNA LR female, Previous CF neg, declines SMA, Declines AFP . 4. BMI 33.5 and Mother had pre-eclampsia, declines low dose ASA 5. Placenta previa @ 20 wks, [place] [facility] [place] and MFM consult 5a. Level 2 scan done 09/12, nml anatomy, no previa, posterior placenta 6. Overnight obs @29 wks left flank pain, passed kidney stone in the morning, Mild to mod. hydronephrosis 7. Rh neg, RhoGam @ 28 wks, done 10/20/23 Assessment: History Reviewed & Current Informed Consent Informed Consent: Induction of Labor and Risk,Benefits,Alternatives Discussed Review of Systems Narrative: ROS noncontributory other than HPI PFSH All Active Problems (Updated 01/09/24 @ 09:17 by Stefani Blake) Encounter for induction of labor (Acute) 41 weeks gestation of (Acute) Rh negative state in antepartum period (Acute) Kidney stone on left side (Acute) (Acute) Maternal varicella, non-immune (Acute) History of hemorrhage, currently (Acute) History of gestational hypertension (Acute) BMI 31.0-31.9,adult (Acute) Medical History (Updated 01/09/24 @ 09:17 by Stefani Blake) Evaluate position using ultrasound Acute left flank pain Placenta previa centralis in second trimester resolved @ 24 wks per [facility] [place] 09[place]13/23 at early stage Biliary colic Family history of hypothyroidism Surgical History Status post appendectomy At [facility] 06/02/23 Hx of cholecystectomy [place] teeth removed Family History Mother Thyroid disorder hypothyroid History of hysterectomy for benign disease fibroids Hx laparoscopic cholecystectomy Preeclampsia Gallbladder disease Sister Raynaud's disease Thyroid disorder hypothyroid, biopsy taken Maternal Grandmother Hypertension Parkinson's disease Brain aneurysm Maternal Grandfather Hypertension Myocardial infarction Paternal Grandmother Diabetes Hypertension Breast cancer Paternal Grandfather Hx of cholecystectomy Brother Liver disease Father Gallbladder disease Sister No problems noted. Sister No problems noted. Brother No problems noted. Brother Hypothyroid Sister No problems noted. Daughter No problems noted. Social History Smoking/Tobacco Use Status: Never Second Hand Exposure: Yes Smoking risk assessment performed?: Yes Alcohol Intake: former Details: social, 1x/mos. w/o use w/ knowledge of . Drug use: Never Substance use type: does not use Adopted: No Caregiver/Support person: No Foster care: No Household members: spouse and children Housing: house Number of Children: 0 Communication Needs: Corrective Lenses Do you need help understanding health information?: Never current occupation: nurse [employer]. Pets and animals: Yes Pets and animals: dog(s) Sexually active: Yes Do you think of yourself as: straight/heterosexual Current gender identity: female What is your relationship status?: How often do you talk on the phone with friends or family?: three or more times per week How often do you get together with friends or relatives?: once per week How often do you attend yarsani or sabianist services?: 4 or more times per year Do you belong to any clubs or organized social groups?: yes Panel score (0-1 are the most socially isolated patients): 4 What type of physical activity do you participate in: walking, weight lifting and other Frequency: daily Sadaf/Hindu: Other Special sadaf needs: No Agree to transfusion: Yes Seatbelt use: always Helmet use: Yes (not w/ bicycle, enc. to use at all times.) Helmet use: sometimes Drive intox or ride w/intox horse and wagon driver: No Water heater temp set <120 deg: No (unknown, will check.) Working smoke detector in home: Yes Fire extinguisher in home: Yes Carbon monox detector in home: Yes Firearms in home: Yes (yes,) Do you feel safe at home: Yes Do you feel safe in your relationship?: Yes Victim of physical abuse: No Victim of emotional abuse: No Victim of sexual abuse: No Female Reproductive History Menstrual Age of Menarche: 13 Duration of menses: 3-5 days control method: none History History 5 Para 4 Hx # Term Pregnancies 4 Multiple births 0 Hx # Pregnancies 0 Ectopic pregnancies 0 AB induced 0 Hx Number of Living Children 4 AB spontaneous 0 Past Pregnancies Del. Date GA/Weeks # Preg Succ Route Wgt Sex Labor Lgth Anesthesia Location [facility] 09/14/18 41 No vaginal 9 lb 3 oz Female ashley Hollingsworth CNM 11/07/19 39 No vaginal 8 lb 9 oz Male 24 hours [facility] Froylan Powers CNM 02/08/21 41 No Yes vaginal 8 lb 12.03 oz Female 8 hours MICHELL Hollingsworth 07/24/22 39 No Yes vaginal 6 lb 12.64 oz Male 6hrs 18min MICHELL Hollingsworth hemorrhage Delivery Date: 09/14/18 Last Updated by: Yana Blake IOL for postdates and PROM, prolonged labor> 20 hrs, pit aug, epidural Delivery Date: 11/07/19 Last Updated by: Yana Blake IOL for unstable lie, epidural, had decreased FHT with bright red bleeding right before delivery, tight nuchal cord, first degree Delivery Date: 02/08/21 Last Updated by: Irina Powers CNM Spontaneous labor, Tub . Delivery Date: 07/24/22 Last Updated by: MICHELL Kathleen; induction of labor with cervidil due to unstable lie of fetus; precip in tub; EBL 1100cc Meds Allergies and Home Medications Allergies Allergy/AdvReac Type Severity Reaction Status Date / Time house dust Allergy Mild Other (See Verified 01/09/24 08:33 Comment) jaison Allergy Hives Verified 01/09/24 08:33 soap Allergy Blisters Verified 01/09/24 08:33 on hands pollen Allergy Intermediate Other (See Uncoded 01/09/24 08:33 Comment) Home Medications ?Medication ?Instructions ?Recorded ?Confirmed ?Type prenat.vits,jil,ogy-fjjc-rilor 1 tab PO DAILY 02/05/18 01/09/24 History magnesium 250 mg tablet 250 mg PO DAILY PRN 09/28/18 01/09/24 History cholecalciferol (vitamin D3) 100 1,000 unit PO PRN 07/26/19 01/09/24 History mcg (4,000 unit) capsule sennosides 8.6 mg-docusate sodium 1 tab-cap PO .COMPLEX PRN 10/28/19 01/09/24 History 50 mg capsule (Senna Plus) ascorbate calcium (vitamin C) 500 1 g PO DAILY PRN 01/25/21 01/09/24 History mg tablet loratadine 10 mg tablet 10 mg PO DAILY 03/23/21 01/09/24 History zinc gluconate 50 mg tablet 30 mg PO DAILY 06/20/22 01/09/24 History Exam Physical Exam Vital Signs Reviewed: Yes Constitutional Constitutional: no acute distress, average body habitus and cooperative Detailed Labor and Delivery Exam Dilation: 1 Effacement (%): 20 station: -3 Position: ROP Cervix position: mid Consistency: soft CAMPBELL Score(Cervical Ripeness Score): 4 Amniotic Membrane Status: Intact Contraction Frequency(min): irreg Contraction Intensity: Mild Fetus A Heart Rate Baseline: 140 Monitor Accelerations: 15 X 15 Monitor Decelerations: None Variability: Moderate (6-25 BPM) Categories: Category I Est. Weight: 7 lb 14.986 oz Est. Weight: 3600 gms HEENT Exam HEENT Exam: Normal Neck Exam Neck Exam: Normal Chest/Brest/Axilla Exam Chest Exam: Normal Breast Exam Breast Exam: Not Done Respiratory Exam Respiratory Exam: Normal Cardiovascular Exam Cardiovascular Exam: Normal Abdominal Exam Abdominal Exam: Normal (gravid, nontender) Rectal Exam Rectal Exam: Normal Exam Exam: Normal Extremities Exam Extremities Exam: Normal Back/Spine/Pelvis Exam Back Exam: Normal Pelvis Adequate: Yes (proven to 4000 gms) Skin Exam Skin Exam: Normal Neurological Exam Neurological Exam: Normal Psychiatric Exam Psychiatric Exam: Normal Results Results Group Beta Strep: Negative Blood Type: O- Rubella Status: Immune Varicella Immunity: Nonimmune Risk Assessment Risk for Shoulder Dystocia Historical/Initial OB: POSITIVE FOR: Pre- BMI>30 and Previous Macrosomia; NEGATIVE FOR: Pelvic Abnormality or Previous Shoulder Dystocia 36 Weeks: NEGATIVE FOR: Current Gestational DM, EFW>4500gms or Maternal Weight Gain>40lbs 40 Weeks: NEGATIVE FOR: EFW> 4500 gms, Maternal Weight Gain >40lb or Post Dates Increased Risk?: No Counseling: proven to Date/Initial: 05/2623 Delivery Plan @ 40 wks: IOL @ 41 wks, Risk for Pre-Eclampsia Date Initiated/Initials: 06/20/23 Yes, if one or more: POSTIVE FOR: Hx Pre-E/Gest HTN; NEGATIVE FOR: Chronic HTN, Multiple Gestation, Pre-gestational DM, Renal Disease, Systemic Lupus or APA Syndrome Yes, if 2 or more: POSITIVE FOR: Mother/Sister w/ Pre-E; NEGATIVE FOR: Nulliparity, Age>= 35 yrs, >10yr btwn pregnancies, BMI>30, ethinicty or Previous IUGR Risk for Post- Hemorrhage Initial: NEGATIVE FOR: Multiple Gestation, Previous PPH, Known Clotting Deficiency, Grand Multiparity or Anticoagulation 36 Weeks: NEGATIVE FOR: Anemia, hgb<10, Low platelets(thrombocytopenia), Gestational HTN or Pre-E, Polyhydraminios or EFW>4500gms 40 Weeks: NEGATIVE FOR: Anemia, hgb<10, Low platelets (thrombocytopenia), Gestation HTN or Pre-E, Polyhydraminios or EFW>4500gms At Risk?: Yes (due to history of PPH and gHTN) Counseled re: Active Management: Yes Risks Reviewed Risks Reviewed Upon Admission: Yes
[2024-01-09 09:44] LABS: HCT 38.8 % (36.0-46.0); HGB 12.6 g/dL (11.2-15.7); MCH 28.8 pg (27.0-33.0); MCHC 32.5 % (32.0-36.0); MCV 89 fL (80-95); Platelet Count 243 10^3/uL (130-400); RBC 4.37 10^6/uL (3.93-5.22); RDW 15.8 % (11.7-14.6); RDW-SD 51.1 fL; WBC 11.19 10^3/uL (4.4-10.8)
[2024-01-09] MEDS: Lactated Ringers 1,000 ML 125 ML IV (10:12)
[2024-01-09] MEDS: Normal Saline Flush 10 ML SYR IVP (10:12)
[2024-01-09] MEDS: Oxytocin/Normal Saline 30 UNIT/500 ML BAG 2 UNITS IV (10:13)
--- NOTE | 2024-01-09 11:48 | W.ANESPRE ---
General Info Date of Service Date Performed: 01/09/24 Height: 5 ft 3 in Weight: 93.44 kg Body Mass Index (BMI): 36.5 Meds Allergies and Home Medications Allergies Allergy/AdvReac Type Severity Reaction Status Date / Time house dust Allergy Mild Other (See Verified 01/09/24 08:33 Comment) jaison Allergy Hives Verified 01/09/24 08:33 soap Allergy Blisters Verified 01/09/24 08:33 on hands pollen Allergy Intermediate Other (See Uncoded 01/09/24 08:33 Comment) Home Medication ?Medication ?Instructions ?Recorded prenat.vits,jil,lqx-mdvg-aqbzf 1 tab PO DAILY 02/05/18 magnesium 250 mg tablet 250 mg PO DAILY PRN 09/28/18 cholecalciferol (vitamin D3) 100 1,000 unit PO PRN 07/26/19 mcg (4,000 unit) capsule sennosides 8.6 mg-docusate sodium 1 tab-cap PO .COMPLEX PRN 10/28/19 50 mg capsule (Senna Plus) ascorbate calcium (vitamin C) 500 1 g PO DAILY PRN 01/25/21 mg tablet loratadine 10 mg tablet 10 mg PO DAILY 03/23/21 zinc gluconate 50 mg tablet 30 mg PO DAILY 06/20/22 Current Visit Medications: Current Medications Generic Name Dose Route Start Last Admin Trade Name Archieq PRN Reason Stop Dose Admin Ringer's Solution 1,000 mls @ 125 mls/hr 01/09/24 09:15 01/09/24 10:12 IV 125 mls/hr INFUSION KATIE Administration Oxytocin/Sodium Chloride 30 unit in 500 mls @ 2 mls/hr 01/09/24 09:15 01/09/24 11:15 Pitocin/Normal Saline IV 6 milliunits/min INFUSION KATIE 6 mls/hr Titration Protocol 2 MILLIUNITS/MIN IV Miscellaneous Supplies 1 each 01/09/24 08:15 Iv Access IV DIRECTED KATIE Sodium Chloride 0 ml 01/09/24 08:11 Normal Saline Flush 10 Ml Syr IVP PRN PRN Sodium Chloride 0 ml 01/09/24 08:30 01/09/24 10:12 Normal Saline Flush 10 Ml Syr IVP 5 ml BID KATIE Administration Sodium Chloride 0 ml 01/09/24 08:11 Normal Saline 10 Ml Vial IJ DIRECTED PRN PFSH Active Problems Active Problems: Problem Status Onset Code Encounter for induction of labor Acute Z34.90 41 weeks gestation of Acute O48.0, Z3A.41 Rh negative state in antepartum period Acute O26.899, Z67.91 Kidney stone on left side Acute N20.0 Acute Z34.90 Maternal varicella, non-immune Acute O09.899, Z28.3 History of hemorrhage, currently Acute O09.299 History of gestational hypertension Acute Z87.59 BMI 31.0-31.9,adult Acute Z68.31 Medical History Medical History (Updated 01/09/24 @ 09:17 by Stefani Blake) Evaluate position using ultrasound Acute left flank pain Placenta previa centralis in second trimester resolved @ 24 wks per [facility] level scan 09/13/23 at early stage Biliary colic Family history of hypothyroidism Surgical History Surgical History Status post appendectomy At [facility] 06/02/23 Hx of cholecystectomy [place] teeth removed Tobacco Smoking/Tobacco Use Status: Never Passive smoking exposure: Yes Second hand exposure: Yes Alcohol Alcohol Intake: former Details: social, 1x/mos. w/o use w/ knowledge of . Substance Use Substance use: Never Substance use type: does not use Prental History History 5 Para 4 Hx # Term Pregnancies 4 Multiple births 0 Hx # Pregnancies 0 Ectopic pregnancies 0 AB induced 0 Hx Number of Living Children 4 AB spontaneous 0 Past Pregnancies Del. Date GA/Weeks # Preg Succ Route Wgt Sex Labor Lgth Anesthesia Location [facility] 09/14/18 41 No vaginal 4167.38 g Female ashley Hollingsworth CNM 11/07/19 39 No vaginal 3883.885 g Male 24 hours ashley Powers CNM 02/08/21 41 No Yes vaginal 3969.784 g Female 8 hours MICHELL Hollingsworth 07/24/22 39 No Yes vaginal 3079.892 g Male 6hrs 18min MICHELL Hollingsworth hemorrhage Delivery Date: 09/14/18 Last Updated by: Yana Blake IOL for postdates and PROM, prolonged labor> 20 hrs, pit aug, epidural Delivery Date: 11/07/19 Last Updated by: Yana Blake IOL for unstable lie, epidural, had decreased FHT with bright red bleeding right before delivery, tight nuchal cord, first degree Delivery Date: 02/08/21 Last Updated by: Irina Powers CNM Spontaneous labor, Tub . Delivery Date: 07/24/22 Last Updated by: MICHELL Kathleen; induction of labor with cervidil due to unstable lie of fetus; precip in tub; EBL 1100cc Vital Signs and Lab Results Vital Signs Most Recent Vital Signs in EMR: Most Recent Vital Signs Temp Pulse Resp BP 36.4 C L 112 H 18 138/86 01/09/24 08:31 01/09/24 11:46 01/09/24 08:31 01/09/24 10:11 Lab Results 01/09/24 09:35 Blood Type / Crossmatch: Antibody Screen POSITIVE 01/09/24 Complete Blood Count: White Blood Count 11.19 10^3/uL (4.4-10.8) H 01/09/24 09:35 Red Blood Count 4.37 10^6/uL (3.93-5.22) 01/09/24 09:35 Hemoglobin 12.6 g/dL (11.2-15.7) 01/09/24 09:35 Hematocrit 38.8 % (36.0-46.0) 01/09/24 09:35 Platelet Count 243 10^3/uL (130-400) 01/09/24 09:35 Complete Metabolic Panel: No Data to Display Liver Function Panel: No Data to Display Coagulation Panel: No Data to Display Cardiac Panel: No Data to Display Arterial Blood Gas: No Data to Display Venous Blood Gas: No Data to Display Pancreas Panel: No Data to Display Thyroid Panel: No Data to Display Infectious Disease: No Data to Display Blood Cultures: No Data to Display Toxicology Panel: No Data to Display Panel: No Data to Display Anesthesia Assessment and Plan Anesthesia History Personal History: No History of Anesthesia Complications Family History: No Family History of Anesthesia Complications Exercise Tolerance Exercise Tolerance: Metabolic Equivalents>4 Pertinent Negatives Pertinent Negatives: No Symptoms of GERD Cardiac & Pulmonary Exam Cardiac Exam: Normal S1/S2 Heart Sounds Pulmonary Exam: Clear Bilateral Breath Sounds Implantable Cardiac Device Does patient have a Pacemaker or an ICD?: No Airway Exam Known Difficult Airway: No Mallampati Class: 2 Mouth Opening: Normal (> 3cm) Thyromental Distance: Greater than 3 cm Neck Range of Motion: Full ROM Neck Circumference: Normal Teeth Condition: Normal Dentition ASA Classification ASA Score: ASA 2 Emergency Case?: No NPO Status NPO Status: NPO Clears >2 hours, Solids >8 hours Status Status: Confirmed Anesthesia Plan Resuscitation Status: Full Code Anesthesia Technique: Labor Epidural Airway Planned: Natural Airway Monitors Used: Standard Monitors
--- NOTE | 2024-01-09 15:40 | PGE_ITS ---
Date of service: 01/09/24 Time of Service: 15:40 Informed Consent Informed Consent: Induction of Labor, Regional Anesthesia and Risk,Benefits,Alternatives Discussed Pelvic Exam Dilation: 2 Effacement (%): 50 station: -3 Cervix Position: mid Consistency: soft BISHOPS Score(Cervical Ripeness Score): 5 Contractions Monitor Mode: External (NOVI) Contraction Frequency(min): q2-3 Intensity: Moderate Fetus A Monitor: External (US) (NOVI) Heart Rate Baseline: 135 Variability: Moderate (6-25 BPM) Categories: Category I Accelerations: 15 X 15 Decelerations: None Amniotic Membrane Status: Intact Assessment and Plan Assessment and plan (1) Encounter for induction of labor: Status: Acute Assessment and plan: A: IOL for postdates, pitocin @ 18 u/min Pt requests epidural, slight cervical change to 2/50%, vtx -3 Category 1 tracing, pt's vital signs are stable P: ACCOUNT EXECUTIVE SALES REPRESENTATIVE paged, will continue with pitocin induction Once pt comfortable will consider AROM when head is lower Anticipate Objective Abnormal lab results 01/09/24 Range/Units 09:35 WBC 11.19 H (4.4-10.8) 10^3/uL RDW 15.8 H (11.7-14.6) % Temp Pulse Resp BP 98.2 F 106 H 18 133/82 01/09/24 13:01 01/09/24 15:38 01/09/24 13:01 01/09/24 13:01 Laboratory Results WBC 11.19 10^3/uL (4.4-10.8) H 01/09/24 09:35 RBC 4.37 10^6/uL (3.93-5.22) 01/09/24 09:35 Hgb 12.6 g/dL (11.2-15.7) 01/09/24 09:35 Hct 38.8 % (36.0-46.0) 01/09/24 09:35 MCV 89 fL (80-95) 01/09/24 09:35 MCH 28.8 pg (27.0-33.0) 01/09/24 09:35 MCHC 32.5 % (32.0-36.0) 01/09/24 09:35 RDW 15.8 % (11.7-14.6) H 01/09/24 09:35 Plt Count 243 10^3/uL (130-400) 01/09/24 09:35 MPV 11.0 fL (8.0-11.0) 01/09/24 09:35 ABO/Rh O Negative 01/09/24 09:13 Antibody Screen POSITIVE 01/09/24 09:13 Antibody Identification Anti-D 01/09/24 09:13 Subjective Interval history since last seen: Contractions have become painful, having difficulty tolerating vaginal exam, using nitrous and would like an epidural now.
[2024-01-09] MEDS: FentaNYL/ROPIvacaine 2 mcg/ml and 0.1% 200 ML CADD Cassette EP (16:15)
--- NOTE | 2024-01-09 16:22 | W.ANESNEU ---
Epidural/Spinal Catheter Date Performed: 01/09/24 Procedure Start: 15:51 Procedure Stop: 16:14 Requesting Provider: Stefani Blake Procedure Location: Obstetrics Reason Performed: Labor Epidural Standard Monitors Applied: Blood Pressure, SpO2 and See EMR for corresponding vital signs Patient Position: Sitting Sedation Given (Indicate Dose Given): Other: Medication/Route/Dose:: Nitrous Oxide Patient Mental Status: Sedate with meaningful communication Sterility: Hand Hygiene, Surgical Cap, Surgical Mask, Sterile Gloves, Sterile Drape/Sheet, Eye Protection and Chlorhexidine Procedure Location: L4-L5 Interspace Epidural Needle: Tuohy 18 Gauge Needle Length: 3.5 Inch Needle Approach: Midline Epidural Procedure: Skin Prepped, Sterile Drape Placed, 1% Lidocaine to skin and subcutaneous tissue with 25G needle, Tuohy Needle placed, CHERI to Saline Used, Epidural Catheter Placed, Negative Heme, Negative CSF Flow and Tuohy Needle Removed Catheter Placed?: Catheter Placed Test Dose (Indicate Dose Given): 5ml 1.5% Lidocaine with 1:200K Epinephrine Given and Negative Test Dose Loss of Resistance Depth (cm): 6 Catheter depth at skin (cm): 12 Dressing: Tegaderm Applied, Mastisol Used and Dressing reinforced with Tape Epidural Provider Bolus (Indicate Dose Given): Total bolus dose given in 3-5 ml divided doses and Total Ropivacaine 0.1% with Fentanyl 2mcg/ml Given from pump. (ml) Dose:: 7ml Additives (Indicate Dose Given ): None Infusion Medication: Medication Infusion Began Medication Infusion: Ropivacaine 0.1% with Fentanyl 2mcg/ml Maintenance Infusion Rate (ml/hour): 10 PCEA Bolus Dose (ml): 5 Block Level: T7 Paresthesia: None Ultrasound: Used to cj site Number of Attempts (See previous attempts in note section): 1 Procedure Tolerated: No Complications and Patient tolerated well Procedure Outcome: Successful Performed By: Osmani Jimenez Supervised By: Atul Weir
[2024-01-09] MEDS: Lactated Ringers 1,000 ML 120 ML IV (18:14)
--- NOTE | 2024-01-09 19:38 | W.PM.OBNL1 ---
Date of service: 01/09/24 Time of Service: 18:30 Informed Consent Informed Consent: Induction of Labor and Risk,Benefits,Alternatives Discussed Pelvic Exam Dilation: 3 Effacement (%): 50 station: -3 Cervix Position: anterior BISHOPS Score(Cervical Ripeness Score): 7 Contractions Contraction Frequency(min): q3-4 Intensity: Moderate Fetus A Heart Rate Baseline: 130 Variability: Moderate (6-25 BPM) Categories: Category I Amniotic Membrane Status: Intact Assessment and Plan Assessment and plan (1) Encounter for induction of labor: Status: Acute Assessment and plan: A: Effective epidural anesthesia Man score advanced to 7 Category 1 tracing; pitocin @ 20 u/min P: Discussed AROM with pt, will re-examine in 1-2 hrs Anticipate Subjective Interval history since last seen: Pt much more comfortable with epidural, though right leg is more numb than left, also using nitrous prn
[2024-01-09] MEDS: Acetaminophen 500 MG TAB 1000 MG PO (20:23)
--- NOTE | 2024-01-09 22:22 | W.PM.OBNL1 ---
Date of service: 01/09/24 Time of Service: 22:22 Informed Consent Informed Consent: Induction of Labor and Risk,Benefits,Alternatives Discussed Pelvic Exam Dilation: 3.5 Effacement (%): 50 station: -3 Cervix Position: anterior Contractions Monitor Mode: External (NOVI) Contraction Frequency(min): q5-7 Intensity: Mild/Moderate Fetus A Monitor: External (US) (NOVI) Heart Rate Baseline: 135 Variability: Moderate (6-25 BPM) Categories: Category I Accelerations: Present Decelerations: None Assessment and Plan Assessment and plan (1) Encounter for induction of labor: Status: Acute Assessment and plan: A: Pitocin IOL for postdates multipara Progressed to 3-4 cm, cvx thick and vtx too high for AROM Epidural anesthesia P: Continue pitocin until 30 u/min Review pt status with Dr. Salas Objective Vital Signs Reviewed: Yes Objective Narrative Objective Narrative: Exam done with hope of performing AROM Vtx remains too high, pt having difficulty tolerating the exam Contractions are decreasing frequency with pit @ 20 u/min Subjective Interval history since last seen: Pt comfortable, sleeping in RL
--- NOTE | 2024-01-09 23:29 | W.PM.OBNL1 ---
Date of service: 01/09/24 Time of Service: 23:34 Informed Consent Informed Consent: Induction of Labor and Risk,Benefits,Alternatives Discussed Assessment and Plan Assessment and plan (1) Encounter for induction of labor: Status: Acute Assessment and plan: Plan of care for the night in consult with Dr. Salas: Turn off pitocin at MN Give 50 mcg PO micoprostel after 0100 when pt is awake Restart pitocin in the morning Subjective Interval history since last seen: sleeping
[2024-01-10] VITALS (106 sets, daily range): BP systolic 111–146; BP diastolic 68–89; PULSE 0–121; RESP 16–18; TEMP 36.5–37; O2SAT 98
[2024-01-10] MEDS: miSOPROStol 50 MCG TAB PO ×2 (01:08→05:14)
[2024-01-10] MEDS: Lactated Ringers 1,000 ML 120 ML IV ×2 (04:25→12:27)
[2024-01-10] MEDS: Oxytocin/Normal Saline 30 UNIT/500 ML BAG 2 UNITS IV (09:52)
[2024-01-10] MEDS: FentaNYL/ROPIvacaine 2 mcg/ml and 0.1% 200 ML CADD Cassette EP (10:57)
--- NOTE | 2024-01-10 17:50 | PGE_ITS ---
Date of service: 01/10/24 Time of Service: 17:50 Informed Consent Informed Consent: Induction of Labor, Risk,Benefits,Alternatives Discussed and Other (consented for AROM, FSE, continued pitocin induction) Pelvic Exam Dilation: 6 Effacement (%): 90 station: -2 Position: LOP Cervix Position: anterior Contractions Monitor Mode: External Contraction Frequency(min): q3 Intensity: Moderate Fetus A Monitor: Internal (FSE) Heart Rate Baseline: 140 Variability: Moderate (6-25 BPM) Categories: Category I Accelerations: Present Decelerations: Early Amniotic Membrane Status: Ruptured Rupture Method: Artifical Amniotic Fluid: Clear Amount: large Date of Membrane Rupture: 01/10/24 Time of Membrane Rupture: 15:12 Assessment and Plan Assessment and plan (1) Encounter for induction of labor: Status: Acute Assessment and plan: A: Pitocin @ 18 u/min, cvx exam 6/90% vtx -2/-3 AROM earlier for clear fluid, FSE applied as tracking FHT was difficult Category 1 tracing overall, at times category 2 d/t periodic variables, nonrecurrent P: Continue current plan of care, Dr. 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
[2024-01-10] MEDS: miSOPROStol 200 MCG TAB 600 MCG SL (20:20)
--- NOTE | 2024-01-10 20:23 | OBVDS_ITS ---
Date of service: 01/10/24 Time of Service: 20:23 OB Labor/ Delivery Information Baby A Delivery Delivery Method: Spontaneaous Presentation: Cephalic Cephalic Position: Vertex Vertex Position: Right Occipital Anterior Breech Position: N/A Cord Description-Baby A: 3 Vessels and Other (right nuchal hand and loop of cord around right ankle) Amniotic Fluid: Clear Estimated Blood Loss: 450 QBL Delivery Outcome: Liveborn Infant Transferred: Remains with Mother Note: At 1900 pt increased her use of nitrous to cope with increased pelvic pressure, SVE 8-9 and vtx +1, Category 1 tracing with recurrent early decels, steady descent of head and increasing urges to push noted, 2nd stage huddle completed when cvx fully dilated, excellent maternal efforts in semi-fowlers, roberts removed, of vigorous female infant over intact perineum, shoulders came easily, nuchal hand noted, to mother's arms immediately, pitocin bolus begun. Cord ceased pulsating, clamped and cut by FOB, cord blood collected, Mc[place]il placenta delivered intact with 3VC, vigorous fundal massage to keep lochia minimal, 600 mcg misoprostel given PO due to hx of PPH, fundus firm below umbilicus. Vulva and vaginal vault inspected and found to be intact, lochia remained minimal and no clots found on vaginal sweep, apgars 8/9, weight 3735 gms. Providers Nurse Weatherization Coordinator: Stefani Blake Director Oracle Database: Eric Pabon Business And Financial Counsel: Claudio Butt Nurse: Darling Thomas Nurse: Lam Urbano Labor/Delivery Information Group Beta Strep: Negative Antibiotics Administered: No Rubella Status: Immune Blood Type: O- Varicella Immunity: Nonimmune Shoulder Dystocia: No Stages of Labor Onset of Labor Date: 01/10/24 Onset of Labor Time: 15:00 Complete Dilatation Date: 01/10/24 Complete Dilatation Time: 19:25 Labor - Stage 1 Duration: 4 hours and 25 minutes ROM Baby A: 01/10/24 ROM Baby A: 15:12 ROM Total Time- Baby A: [id number] Delivery Date-Baby A: 01/10/24 Infant Delivery Time-Baby A: 19:35 Labor Stage 2 Duration: 10 minutes Placenta Delivery Date-Baby A: 01/10/24 Placenta Delivery Time-Baby A: 19:44 Labor-Stage 3 Duration: 9 minutes Total Length of Labor-Baby A: 4 hours and 35 minutes Placenta Status: Delivered Baby A Infant Gender: Female Gestational Status: Term (39-41.6 wks) Gestational Age in Weeks/Days: 41 Weeks and 1 Days weight: 8 lb 3.748 oz Weight Comment: 3735 gms Length-Baby A: 20.08 in Score-1 Minute Interval(Baby A) Heart Rate-1 minute: 100 BPM or Greater Respiratory Effort- 1 minute: Spontaneous/Strong Cry Muscle Tone-1 minute: Active Movement Reflex Response-1 minute: Prompt Response Color-1 minute: Pallor or Cyanosis Total Score-1 minute: 8 Score-5 Minute Interval(Baby A) Heart Rate- 5 minute: 100 BPM or Greater Respiratory Effort-5 minute: Spontaneous/Strong Cry Muscle Tone-5 minute: Active Movement Reflex Response-5 minute: Prompt Response Color-5 minute: Bluish Hands or Feet Total Score- 5 minute: 9 Procedure Procedures: Cord Blood Collection and Scalp Electrode Placement Interventions Pain Management Interventions: Epidural and Nitrous Oxide , pt used nitrous to good effect .
[2024-01-10] MEDS: Oxytocin/Normal Saline 30 UNIT/500 ML BAG 95 UNITS IV (20:30)
[2024-01-10] MEDS: Acetaminophen 325 MG TAB 650 MG PO (21:47)
[2024-01-10] MEDS: Ibuprofen 600 MG TAB PO (21:47)
[2024-01-11] MEDS: Acetaminophen 325 MG TAB 650 MG PO ×5 (01:43→20:06)
[2024-01-11] MEDS: Ibuprofen 600 MG TAB PO ×4 (03:09→21:57)
[2024-01-11 05:42] VITALS: BP 136/90; PULSE 92; RESP 16; TEMP 36.5
[2024-01-11 08:00] VITALS: BP 132/100; PULSE 67; RESP 12; TEMP 36.7
--- NOTE | 2024-01-11 09:36 | ANES.POST_ITS ---
Postoperative Evaluation Date, Time and Location Date Performed: 01/11/24 Time Performed: 09:37 Patient Location: Obstetrics Vital Signs Most Recent Imported Vital Signs: Most Recent Vital Signs Temp Pulse Resp BP Pulse Ox 36.5 C 92 H 16 136/90 98 01/11/24 05:42 01/11/24 05:42 01/11/24 05:42 01/11/24 05:42 01/10/24 15:46 Pain Score Most Recent Pain Score: Most Recent Pain Score Pain Level 7 01/11/24 08:46 Assessment Mental Status: Awake (Alert & Oriented to Patient Baseline) Airway and Respiratory Function: Patent airway with normal (patient baseline) respiratory exam Cardiovascular Function: Hemodynamically Stable Hydration Status: Adequately Hydrated Nausea & Vomiting: No Nausea or Vomiting Pain: Pain is tolerable per patient Peripheral Nerve Block: Patient did not receive a nerve block Teaching Patient Teaching: Discussed Safe Use of Pain Medication Given Recent Anesthesia Postoperative Comments:: Miss Hoover evaluated s/p vaginal delivery and epidural placement. She expresses being comfortable and overall satisfied with her epidural experience. Denies parathesias, reports full return of sensation, she does however express right superior quadraceps ache and cramping. It was discussed that this discomfort was likely not related to the epidural and perhaps from having her legs in the flexed position during delivery. She endorses that this ache is resolving and has much improved sinced last night. She denies N/V, is h emodynamically stable, tolerating PO nutition, and is in no distress.
[2024-01-11] MEDS: RHO(D) Immune Globulin 1,500 UNIT Syringe 1500 UNIT IM (10:30)
--- NOTE | 2024-01-11 13:37 | OBPPV_ITS ---
Date of service: 01/11/24 Time of Service: 13:37 Assessment and Plan Assessment and plan (1) Term delivered: Status: Acute Assessment and plan: A: PPD#1, elevated diastolic BP noted, pt denies symptoms Pleased with experience P: Pt plans natural family planning, Consider HTN labs if mild range BP persists Discharge planned for tomorrow (2) Gestational hypertension without significant proteinuria, affecting puerperium: Status: Acute Assessment and plan: Two BP's reveal diastolic 90-100 Pt denies JULIO of visual changes, DTR's are WNL Will continue to monitor Subjective Subjective Patient comments: No complaints, Pain well controlled, Tolerating diet, Flatus present and Bowel Movement Patient's Mood: happy baby status: Doing well, Rooming in and Strong Bonding Observed Arthur feeding status: Breast and formula feeding Exam Physical Exam Vital signs: Temp Pulse Resp BP Pulse Ox 98.1 F 67 12 132/100 H 98 01/11/24 08:00 01/11/24 08:00 01/11/24 08:00 01/11/24 08:00 01/10/24 15:46 Vital Signs Reviewed: Yes Constitutional Constitutional: no acute distress and cooperative HEENT Exam HEENT Exam: Normal Neck Exam Neck Exam: Normal Breast Exam Bilateral: Breast Exam: Normal and Soft Nipple Exam: Normal and Uninjured Respiratory Exam Respiratory Exam: Normal Cardiovascular Exam Cardiovascular Exam: Normal Abdominal Exam Abdomen: Other (soft, nontender) Fundal Exam Fundus: Below Umbilicus and Firm Rectal Exam Rectal Exam: Normal Exam Perineum: Intact Extremities Exam Extremity Exam: Normal, Full ROM and Warm to Touch Back/Spine/Pelvis Exam Back Exam: Normal Skin Exam Skin Exam: Normal Neurological Exam Neurological Exam: Normal Psychiatric Exam Psychiatric Exam: Normal
[2024-01-11 15:30] VITALS: BP 130/94; PULSE 81; RESP 16; TEMP 36.4; O2SAT 98
[2024-01-11 20:12] VITALS: BP 131/98; PULSE 85; RESP 17; TEMP 36.8; O2SAT 99
[2024-01-11] MEDS: Docusate Sodium 100 MG CAP PO (21:57)
[2024-01-12] MEDS: Ibuprofen 600 MG TAB PO (06:48)
[2024-01-12 06:49] LABS: HCT 33.8 % (36.0-46.0); MCH 29.3 pg (27.0-33.0); MCHC 32.5 % (32.0-36.0); MCV 90 fL (80-95); MPV 11.1 fL (8.0-11.0); Platelet Count 233 10^3/uL (130-400); RBC 3.75 10^6/uL (3.93-5.22)
[2024-01-12] MEDS: Acetaminophen 325 MG TAB 650 MG PO (06:49)
[2024-01-12 07:13] LABS: Lab Add On Test COMPLETED
[2024-01-12 07:19] LABS: ALT 15 U/L (14-59); AST 21 U/L (15-37); Albumin 2.2 g/dL (3.4-5.0); Alkaline Phosphatase 186 U/L (46-116); BUN 7 mg/dL (7-18); Bilirubin, Total 0.15 mg/dL (0.2-1.0); CREATININE 0.7 mg/dL (0.55-1.02); Calcium 8.9 mg/dL (8.5-10.1); Chloride 107 mmol/L (98-107); Estimated GFR 117.77 (mL/min/1.73m2); Glucose 85 mg/dL (74-106); Potassium 3.5 mmol/L (3.5-5.1); Sodium 142 mmol/L (136-145); Total Protein 6.4 g/dL (6.4-8.2); Uric Acid 3.9 mg/dL (2.6-6.0)
[2024-01-12 07:26] LABS: LDH 180 U/L (81-234)
[2024-01-12 08:00] VITALS: BP 143/90; PULSE 91; RESP 12; TEMP 36.9
[2024-01-12] MEDS: Labetalol 100 MG TAB PO (09:37)
[2024-01-12 10:00] VITALS: BP 140/90; PULSE 79
[2024-01-12 12:00] VITALS: BP 146/86; PULSE 68; RESP 12; TEMP 36.7
--- NOTE | 2024-01-12 14:18 | W.PM.OBDISCH ---
Date of service: 01/12/24 Time of Service: 14:23 DS: Diagnosis Discharge Diagnosis (1) Term delivered: Status: Acute Asessment and Plan: Caring for baby independently. Pain is managed well with oral analgesics. Voiding without difficulty. well. BP elevated post and consultation with Dr. Albert this morning re: medication and labetalol 100 mg BID ordered this morning. A - stable mother and baby , Post day 2 P - Discharge to home. Routine post instructions. [facility]. (2) Gestational hypertension without significant proteinuria, affecting puerperium: Status: Acute Asessment and Plan: BP readings every 2 hours 130-140s/80s-90s. and preeclampsia labs reviewed with Dr. Salas. Presciption for labetalol 100 mg BID sent to her pharmacy Discharge Plan Disposition Patient Disposition: Home Condition: Good Discharge Details Reason For Visit: Induction for Postdates Admit Date/Time: 01/09/24 08:11 Admit Provider: Stefani Blake Attending Provider: Stefani Blake Primary Care Provider: [facility] Course Hospital Course: Admitted for induction of labor, on HD#2 after pitocin and misprostel, Home Meds and New Rx's Prescriptions: New labetalol 100 mg Tablet 100 mg PO BID Qty: 60 2RF Continued cholecalciferol (vitamin D3) 100 mcg (4,000 unit) capsule 1,000 unit PO PRN No Action prenat.vits,jil,ext-nsic-pnphi tablet 1 tab PO DAILY zinc gluconate 50 mg tablet 30 mg PO DAILY magnesium 250 mg tablet 250 mg PO DAILY PRN Senna Plus 8.6-50 mg capsule 1 tab-cap PO .COMPLEX PRN Rx Instructions: 1 tab-cap PO every other day; PRN; ascorbate calcium (vitamin C) 500 mg tablet 1 g PO DAILY PRN loratadine 10 mg tablet 10 mg PO DAILY Discharge Instructions Additional Instructions: Please keep your 2 and 6 week appointments with your fleet driver, call for any and all concerns Stand Alone Forms: BC Instructions, BC Post Vaginal Deliver Activity:: Activity as Tolerated Equipment/Supplies:: No Equipment Needed Diet:: Normal Diet Discharge Orders Discharge Orders: Discharge Order (Routine); Ordered 01/12/24 Ordered By: Irina Powers OB:DS Summary Summary Vaginal Delivery Method: Spontaneaous Episiotomy Description: None Laceration Description: None Laceration Extension: N/A Contraception Discussed Contraception Discussed: Yes (natural family planning), Infant Gender-Baby A: Female weight: 8 lb 3.748 oz Status at Discharge Functional status at discharge: independent ambulation Overall status at discharge: patient is back to baseline Mental Status: mental status grossly normal Speech and Movement: speech and movement normal Mood: congruent mood Affect: normal affect Quality:SDOH Health Related Social Needs: No Data to Display Exam Physical Exam Vital signs: Temp Pulse Resp BP Pulse Ox 98.1 F 68 12 146/86 H 99 01/12/24 12:00 01/12/24 12:00 01/12/24 12:00 01/12/24 12:00 01/11/24 20:12 Vital Signs Reviewed: Yes Constitutional Constitutional: no acute distress Respiratory Exam Respiratory Exam: Normal Cardiovascular Exam Cardiovascular Exam: Normal Fundal Exam Fundus: Below Umbilicus and Firm Extremities Exam Extremity Exam: Normal Skin Exam Skin Exam: Normal Psychiatric Exam Psychiatric Exam: Normal [facility] All Active Problems (Updated 01/11/24 @ 13:44 by Stefani Blake) Gestational hypertension without significant proteinuria, affecting puerperium (Acute) Term delivered (Acute) Rh negative state in antepartum period (Acute) Maternal varicella, non-immune (Acute) History of gestational hypertension (Acute) BMI 31.0-31.9,adult (Acute) Medical History (Updated 01/11/24 @ 13:44 by Stefani Blake) History of hemorrhage, currently 41 weeks gestation of Encounter for induction of labor Kidney stone on left side Evaluate position using ultrasound Acute left flank pain Placenta previa centralis in second trimester resolved @ 24 wks per [facility] level scan 09/13/23 at early stage Biliary colic Family history of hypothyroidism Surgical History Status post appendectomy At [facility] 06/02/23 Hx of cholecystectomy [place] teeth removed Family History Mother Thyroid disorder hypothyroid History of hysterectomy for benign disease fibroids Hx laparoscopic cholecystectomy Preeclampsia Gallbladder disease Sister Raynaud's disease Thyroid disorder hypothyroid, biopsy taken Maternal Grandmother Hypertension Parkinson's disease Brain aneurysm Maternal Grandfather Hypertension Myocardial infarction Paternal Grandmother Diabetes Hypertension Breast cancer Paternal Grandfather Hx of cholecystectomy Brother Liver disease Father Gallbladder disease Sister No problems noted. Sister No problems noted. Brother No problems noted. Brother Hypothyroid Sister No problems noted. Daughter No problems noted. Social History Smoking/Tobacco Use Status: Never Second Hand Exposure: Yes Smoking risk assessment performed?: Yes Alcohol Intake: former Details: social, 1x/mos. w/o use w/ knowledge of . Drug use: Never Substance use type: does not use Adopted: No Caregiver/Support person: No Foster care: No Household members: spouse and children Housing: house Number of Children: 0 Communication Needs: Corrective Lenses Do you need help understanding health information?: Never current occupation: nurse [employer]. Pets and animals: Yes Pets and animals: dog(s) Sexually active: Yes Do you think of yourself as: straight/heterosexual Current gender identity: female What is your relationship status?: How often do you talk on the phone with friends or family?: three or more times per week How often do you get together with friends or relatives?: once per week How often do you attend anabaptist or baptist services?: 4 or more times per year Do you belong to any clubs or organized social groups?: yes Panel score (0-1 are the most socially isolated patients): 4 What type of physical activity do you participate in: walking, weight lifting and other Frequency: daily Sadaf/Methodist: Other Special sadaf needs: No Agree to transfusion: Yes Seatbelt use: always Helmet use: Yes (not w/ bicycle, enc. to use at all times.) Helmet use: sometimes Drive intox or ride w/intox newspaper delivery driver: No Water heater temp set <120 deg: No (unknown, will check.) Working smoke detector in home: Yes Fire extinguisher in home: Yes Carbon monox detector in home: Yes Firearms in home: Yes (yes,) Do you feel safe at home: Yes Do you feel safe in your relationship?: Yes Victim of physical abuse: No Victim of emotional abuse: No Victim of sexual abuse: No Female Reproductive History Menstrual Age of Menarche: 13 Duration of menses: 3-5 days control method: none History History 5 Para 4 Hx # Term Pregnancies 4 Multiple births 0 Hx # Pregnancies 0 Ectopic pregnancies 0 AB induced 0 Hx Number of Living Children 4 AB spontaneous 0 Past Pregnancies Del. Date GA/Weeks # Preg Succ Route Wgt Sex Labor Lgth Anesthesia Location Prov Complic 09/14/18 41 No vaginal 9 lb 3 oz Female regional Darrick GALARZA 11/07/19 39 No vaginal 8 lb 9 oz Male 24 hours regional Froylan Powers CNM 02/08/21 41 No Yes vaginal 8 lb 12.03 oz Female 8 hours MICHELL [place] 07/24/22 39 No Yes vaginal 6 lb 12.64 oz Male 6hrs 18min MICHELL [place] hemorrhage Delivery Date: 09/14/18 Last Updated by: Yana Blake IOL for postdates and PROM, prolonged labor> 20 hrs, pit aug, epidural Delivery Date: 11/07/19 Last Updated by: Yana Blake IOL for unstable lie, epidural, had decreased FHT with bright red bleeding right before delivery, tight nuchal cord, first degree Delivery Date: 02/08/21 Last Updated by: Irina Powers CNM Spontaneous labor, Tub . Delivery Date: 07/24/22 Last Updated by: Irina Powers CNM Ahmet; induction of labor with cervidil due to unstable lie of fetus; precip in tub; EBL 1100cc DS: Data Vitals/I&O Vitals and I&O: Vital Signs Temperature 98.1 F 01/12/24 12:00 Temperature Source Oral 01/12/24 12:00 Pulse 68 01/12/24 12:00 Pulse Rhythm Regular 01/12/24 08:00 Respiratory Rate 12 01/12/24 12:00 Respiratory Depth Normal 01/11/24 20:12 Blood Pressure 146/86 H 01/12/24 12:00 Blood Pressure Mean 106 01/12/24 12:00 Pulse Oximetry 99 01/11/24 20:12 Oxygen Delivery Method Room Air 01/09/24 08:35 Oxygen Flow Rate 0 01/09/24 08:35 Pain Level 5 01/11/24 15:30 Data Completed and Pending Labs on day of discharge: Labs from last 24 hours 01/12/24 01/11/24 06:05 06:25 WBC 10.20 RBC 3.75 L Hgb 11.0 L Hct 33.8 L MCV 90 MCH 29.3 MCHC 32.5 RDW 16.0 H Plt Count 233 MPV 11.1 H Sodium 142 Potassium 3.5 Chloride 107 Carbon Dioxide 26.0 Anion Gap 9.0 BUN 7 Creatinine 0.7 Est GFR (CKD-EPI 2020) 117.77 Glucose 85 Uric Acid 3.9 Calcium 8.9 Total Bilirubin 0.15 L AST 21 ALT 15 Alkaline Phosphatase 186 H Lactate Dehydrogenase 180 Total Protein 6.4 Albumin 2.2 L Add-On Test Request COMPLETED Screen Negative
== END 2024-01-12 15:35 | disposition home or self-care (01) | DRG 807 ==
PROVIDERS: Advanced Practice Midwife; Admitting Provider Advanced Practice Midwife; PCP Nurse Practitioner Family; Visit Provider Advanced Practice Midwife
DX: O48.0 Post-term pregnancy (principal); Z37.0 Single live birth; Z3A.41 41 weeks gestation of pregnancy; O26.893 Other specified pregnancy related conditions, third trimester; Z67.91 Unspecified blood type, Rh negative; O69.81X0 Labor and delivery complicated by cord around neck, without compression, not applicable or unspecified; O13.5 Gestational [pregnancy-induced] hypertension without significant proteinuria, complicating the puerperium
CPT/HCPCS: 36415; 80053; 85027; 85461; 86850; 86900; 86901; 90384; 83615; 84550; 86870; J2790